=== PATIENT | female | born 1945 | race Caucasian/White ===

== ENCOUNTER 2021-08-26 17:53 | Inpatient (IN) ==
[2021-08-26] MEDS ORDERED: ONDANSETRON INJ 2 MG/ML 2 ML VIAL IV STA (18:49)
[2021-08-26] MEDS ORDERED: MoRPHine SULFATE 4 MG/ML 1 ML CARP\\VIAL IV STA (18:49)
--- NOTE | 2021-08-26 18:55 | Emergency Department Note ---
History of Present Illness General Chief complaint: Fall Time Seen by Provider: 08/26/21 18:42 Source: patient History of Present Illness Provider complaint: Left hip pain Onset (ago): hour(s) Location: hip and left Pain Consistency: + constant Maximum Pain Intensity: 9 Quality: + sharp Exacerbated By: + movement Associated symptoms: no chest pain, no cough, no fever/chills, no headaches, no nausea/vomiting, no shortness of breath or no syncope This is a 76-year-old female who presents with left hip pain after a fall that occurred earlier today. The patient states that she felt lightheaded and tripped over her own feet falling onto her left hip. She is sure that she did not hit her head or pass out. She felt lightheaded this morning but denies any recent illness, fever, cough or cold symptoms, headache, chest pain, shortness of breath, abdominal pain, vomiting, diarrhea or urinary symptoms. She states her pain is sharp and it is worse with movement. She denies pain to the knee or the ankle. She denies any pain to her ribs or her shoulder. She states that she was lying on the ground for a few hours before EMS arrived. Home Medications Medication Instructions Recorded Confirmed Type cholecalciferol (vitamin D3) 125 5,000 unit PO DAILY 09/07/18 08/26/21 History mcg (5,000 unit) tablet (Vitamin D3) magnesium oxide 400 mg PO BID 09/07/18 08/26/21 History metformin 500 mg tablet 500 mg PO BID 09/07/18 08/26/21 History alendronate 70 mg tablet 70 mg PO WK 08/26/21 08/26/21 History atenolol 25 mg tablet 12.5 mg PO DAILY 08/26/21 08/26/21 History atorvastatin 40 mg tablet 40 mg PO DAILY 08/26/21 08/26/21 History cyanocobalamin (vitamin B-12) 1,000 mcg PO DAILY 08/26/21 08/26/21 History 1,000 mcg tablet lisinopril 5 mg tablet 5 mg PO DAILY 08/26/21 08/26/21 History multivitamin 1 tab PO DAILY 08/26/21 08/26/21 History Allergies Allergy/AdvReac Type Severity Reaction Status Date / Time No Known Allergies Allergy Verified 08/26/21 21:33 Past Med/Surg History Medical History (Updated 08/26/21 @ 22:14 by Balwinder Colin MD) Anemia Blindness of right eye CKD (chronic kidney disease), stage III DM type 2 (diabetes mellitus, type 2) Dyslipidemia Hypertension Osteoporosis Paroxysmal ventricular tachycardia Syncope Surgical History H/O colonoscopy "2012- diverticulosis" H/O dilation and curettage H/O umbilical hernia repair History of cataract surgery Social History Smoking Status: Never smoker Hx Alcohol Use: No Hx Substance Use: No Preferred Language: Ecuadorean Communication Ability: Effective Assistant Media Buyer Required: No Beliefs That Will Affect Care: None marital status: / Current Living Situation: Family How many Children do You have: 1 Feels Safe at Home: Yes Assistive Devices: Walker Review of Systems See HPI for pertinent positives & negatives. and A total of 10 systems reviewed and were otherwise negative Physical Exam Vital Signs Vital Signs - 24 hr 08/26/21 18:11 08/26/21 18:20 08/26/21 18:29 Temperature 37.1 C Temperature Source Oral Pulse Rate 104 H 102 H Pulse Rate [Apical] 98 H Pulse Rate from SpO2 Sensor 104 H 104 H Pulse Rhythm Pulse Rhythm [Apical] Regular Pulse Strength Pulse Strength [Apical] Normal Respiratory Rate 23 23 18 Respiratory Effort / Characteristics Non-Labored Spontaneous Respiratory Depth Normal Respiratory Pattern Regular Blood Pressure Blood Pressure [Right Arm] 136/82 Blood Pressure Mean Blood Pressure Mean [Right Arm] 100 Blood Pressure Position Blood Pressure Position [Right Arm] Lying Pulse Oximetry 95 93 96 Oxygen Delivery Method Room Air Sepsis Recent Fever Within 48 Hours Sepsis New/Unexplained Change in Mental Status Sepsis Action Taken by Nursing 08/26/21 18:31 08/26/21 18:44 08/26/21 19:10 Temperature 37.1 C Temperature Source Oral Pulse Rate 98 H 94 H 117 H Pulse Rate [Apical] Pulse Rate from SpO2 Sensor 117 H Pulse Rhythm Regular Regular Pulse Rhythm [Apical] Pulse Strength Normal Pulse Strength [Apical] Respiratory Rate 19 20 25 H Respiratory Effort / Characteristics Non-Labored Spontaneous Respiratory Depth Normal Respiratory Pattern Regular Blood Pressure 136/82 141/69 H Blood Pressure [Right Arm] Blood Pressure Mean 100 93 Blood Pressure Mean [Right Arm] Blood Pressure Position Lying Blood Pressure Position [Right Arm] Pulse Oximetry 96 96 94 Oxygen Delivery Method Room Air Room Air Room Air Sepsis Recent Fever Within 48 Hours No Sepsis New/Unexplained Change in Mental Status No Sepsis Action Taken by Nursing No Action Required 08/26/21 19:30 08/26/21 20:30 08/26/21 21:00 Temperature Temperature Source Pulse Rate 109 H 107 H 113 H Pulse Rate [Apical] Pulse Rate from SpO2 Sensor 109 H 105 H 115 H Pulse Rhythm Pulse Rhythm [Apical] Pulse Strength Pulse Strength [Apical] Respiratory Rate 20 20 18 Respiratory Effort / Characteristics Respiratory Depth Respiratory Pattern Blood Pressure 121/62 99/66 L 133/68 Blood Pressure [Right Arm] Blood Pressure Mean 81 77 89 Blood Pressure Mean [Right Arm] Blood Pressure Position Blood Pressure Position [Right Arm] Pulse Oximetry 93 92 92 Oxygen Delivery Method Room Air Room Air Room Air Sepsis Recent Fever Within 48 Hours Sepsis New/Unexplained Change in Mental Status Sepsis Action Taken by Nursing Constitutional: Vital signs reviewed. Eyes: Pupils are equal round reactive to light. Conjunctiva are noninjected. ENT: Pharynx is clear without erythema or exudate. Mucous membranes are moist. Neck supple without meningeal signs. Respiratory: Clear to auscultation bilaterally. Breath sounds are equal bilaterally. Cardiovascular: Regular rate and rhythm. No rubs or gallops. GI: Soft, nondistended and nontender. Bowel sounds are present. Musculoskeletal: No peripheral edema. Tenderness over the left hip without deformity. Neurovascular intact with normal dorsalis pedis pulse. Integumentary: No cyanosis. or jaundice. Neurological: The patient is awake and alert. No focal deficits. Psychiatric: Normal affect. Not anxious appearing. Course Administered Medications Magnesium Sulfate/Dextrose (Magnesium Sulfate / D5w) 1 gm in 100 mls @ 50 mls/hr IV Q2H PAUL Stop: 08/27/21 00:59 Last Admin: 08/26/21 21:34 Dose: 50 mls/hr Documented by: [id number] Discontinued Medications Sodium Chloride (Nss) 500 mls @ 250 mls/hr IV .Q2H ONE Stop: 08/26/21 21:58 Last Admin: 08/26/21 20:16 Dose: 250 mls/hr Documented by: [id number] Morphine Sulfate (Morphine Sulfate 4 Mg/Ml 1 Ml Carp\\Vial) 4 mg IV NOW STA Stop: 08/26/21 18:50 Last Admin: 08/26/21 19:03 Dose: 4 mg Documented by: [id number] Ondansetron HCl (Ondansetron Inj 2 Mg/Ml 2 Ml Vial) 4 mg IV NOW STA Stop: 08/26/21 18:50 Last Admin: 08/26/21 19:02 Dose: 4 mg Documented by: [id number] Medical Decision Making Differential Diagnosis If fracture, contusion, dislocation, pelvic fracture, metabolic derangement, anemia, infection Medical Records Attestation: I reviewed the patient's medical records. I did perform a limited focused review of portions of the patient's old chart on the electronic medical record. The patient has had no recent pertinent visits to this hospital. Home Medications Current Medication List: was personally reviewed by me Laboratory Data Attestation: I reviewed the patient's lab results. Result diagrams: 08/26/21 18:26 08/26/21 18:26 Lab Results 08/26/21 08/26/21 08/26/21 Range/Units 18:26 18:26 18:26 WBC 9.20 (4.8-10.8) K/uL RBC 3.27 L (4.2-5.4) M/uL Hgb 10.2 L (12.0-16.0) g/dL Hct 30.5 L (37-47) % MCV 93.3 (80-100) fL MCH 31.2 (25-34) pg MCHC 33.4 (32-36) g/dL RDW Std Deviation 45.2 (36.4-46.3) fL RDW Coeff of Julio 13.3 (11.5-14.5) % Plt Count 187 (130-400) K/uL MPV 11.0 H (7.4-10.4) fL Immature Gran % (Auto) 0.2 % Neut % (Auto) 87.0 % Lymph % (Auto) 3.5 % [place] % (Auto) 9.2 % Eos % (Auto) 0.0 % Baso % (Auto) 0.1 % Neut # (Auto) 8.00 H (1.4-6.5) K/uL Lymph # (Auto) 0.32 L (1.2-3.4) K/uL [place] # (Auto) 0.85 H (0.11-0.59) K/uL Eos # (Auto) 0.00 (0-0.5) K/uL Baso # (Auto) 0.01 (0-0.2) K/uL Immature Gran # (Auto) 0.02 (0.00-0.02) K/uL PT 10.2 (9.0-12.0) Seconds INR 1.0 (0.9-1.1) APTT 27.1 (21.0-31.0) Seconds PTT Ratio 1.0 Sodium 131 L (136-145) mmol/L Potassium 4.6 (3.5-5.1) mmol/L Chloride 98 (98-107) mmol/L Carbon Dioxide 24 (21-32) mmol/L Anion Gap 9.0 (3-11) BUN 27 H (7-18) mg/dl Creatinine 1.15 (0.6-1.2) mg/dl Est Cr Clr Drug Dosing 28.4 ml/min Est GFR ( Amer) 52.8 ml/min Est GFR (Non-Af Amer) 45.5 ml/min BUN/Creatinine Ratio 23.5 H (10-20) Glucose 167 H (70-99) mg/dl Calcium 8.1 L (8.5-10.1) mg/dl Magnesium 1.5 L (1.8-2.4) mg/dl Total Bilirubin 0.5 (0.2-1) mg/dl AST 55 H (15-37) U/L ALT 41 (12-78) U/L Alkaline Phosphatase 61 (45-117) U/L Total Creatine Kinase 342 H (26-192) U/L Troponin I < 0.015 (0-0.045) ng/ml Total Protein 7.1 (6.4-8.2) gm/dl Albumin 2.8 L (3.4-5.0) gm/dl Globulin 4.3 H (2.5-4.0) gm/dl Albumin/Globulin Ratio 0.7 L (0.9-2) Procalcitonin (0-0.5) ng/ml TSH 6.170 H (0.300-4.500) uIu/ml Free T4 1.52 (0.8-1.6) ng/dl Urine Color Urine Appearance (Clear) Urine pH (4.5-7.5) Ur Specific [place] (1.000-1.030) Urine Protein (Negative) Urine Glucose (UA) (Negative) Urine Ketones (Negative) Urine Blood (Negative) Urine Nitrite (Negative) Urine Bilirubin (Negative) Urine Urobilinogen (Negative) Ur Leukocyte Esterase (Negative) Urine WBC (Auto) (0-5) /hpf Urine RBC (Auto) (0-4) /hpf U Hyaline Cast (Auto) (0-5) /lpf U Epithel Cells (Auto) (0-5) /lpf Urine Bacteria (Auto) (Negative) COVID-19 Eval Order SARS-CoV-2 (PCR) (Negative) Blood Type Antibody Screen 08/26/21 08/26/21 08/26/21 Range/Units 19:07 19:07 19:07 WBC (4.8-10.8) K/uL RBC (4.2-5.4) M/uL Hgb (12.0-16.0) g/dL Hct (37-47) % MCV (80-100) fL MCH (25-34) pg MCHC (32-36) g/dL RDW Std Deviation (36.4-46.3) fL RDW Coeff of Julio (11.5-14.5) % Plt Count (130-400) K/uL MPV (7.4-10.4) fL Immature Gran % (Auto) % Neut % (Auto) % Lymph % (Auto) % [place] % (Auto) % Eos % (Auto) % Baso % (Auto) % Neut # (Auto) (1.4-6.5) K/uL Lymph # (Auto) (1.2-3.4) K/uL [place] # (Auto) (0.11-0.59) K/uL Eos # (Auto) (0-0.5) K/uL Baso # (Auto) (0-0.2) K/uL Immature Gran # (Auto) (0.00-0.02) K/uL PT (9.0-12.0) Seconds INR (0.9-1.1) APTT (21.0-31.0) Seconds PTT Ratio Sodium (136-145) mmol/L Potassium (3.5-5.1) mmol/L Chloride (98-107) mmol/L Carbon Dioxide (21-32) mmol/L Anion Gap (3-11) BUN (7-18) mg/dl Creatinine (0.6-1.2) mg/dl Est Cr Clr Drug Dosing ml/min Est GFR ( Amer) ml/min Est GFR (Non-Af Amer) ml/min BUN/Creatinine Ratio (10-20) Glucose (70-99) mg/dl Calcium (8.5-10.1) mg/dl Magnesium (1.8-2.4) mg/dl Total Bilirubin (0.2-1) mg/dl AST (15-37) U/L ALT (12-78) U/L Alkaline Phosphatase (45-117) U/L Total Creatine Kinase (26-192) U/L Troponin I (0-0.045) ng/ml Total Protein (6.4-8.2) gm/dl Albumin (3.4-5.0) gm/dl Globulin (2.5-4.0) gm/dl Albumin/Globulin Ratio (0.9-2) Procalcitonin (0-0.5) ng/ml TSH (0.300-4.500) uIu/ml Free T4 (0.8-1.6) ng/dl Urine Color Urine Appearance (Clear) Urine pH (4.5-7.5) Ur Specific [place] (1.000-1.030) Urine Protein (Negative) Urine Glucose (UA) (Negative) Urine Ketones (Negative) Urine Blood (Negative) Urine Nitrite (Negative) Urine Bilirubin (Negative) Urine Urobilinogen (Negative) Ur Leukocyte Esterase (Negative) Urine WBC (Auto) (0-5) /hpf Urine RBC (Auto) (0-4) /hpf U Hyaline Cast (Auto) (0-5) /lpf U Epithel Cells (Auto) (0-5) /lpf Urine Bacteria (Auto) (Negative) COVID-19 Eval Order Covid19 at [facility] SARS-CoV-2 (PCR) POSITIVE A* (Negative) Blood Type O Positive Antibody Screen NEGATIVE 08/26/21 08/26/21 Range/Units 19:15 19:18 WBC (4.8-10.8) K/uL RBC (4.2-5.4) M/uL Hgb (12.0-16.0) g/dL Hct (37-47) % MCV (80-100) fL MCH (25-34) pg MCHC (32-36) g/dL RDW Std Deviation (36.4-46.3) fL RDW Coeff of Julio (11.5-14.5) % Plt Count (130-400) K/uL MPV (7.4-10.4) fL Immature Gran % (Auto) % Neut % (Auto) % Lymph % (Auto) % [place] % (Auto) % Eos % (Auto) % Baso % (Auto) % Neut # (Auto) (1.4-6.5) K/uL Lymph # (Auto) (1.2-3.4) K/uL [place] # (Auto) (0.11-0.59) K/uL Eos # (Auto) (0-0.5) K/uL Baso # (Auto) (0-0.2) K/uL Immature Gran # (Auto) (0.00-0.02) K/uL PT (9.0-12.0) Seconds INR (0.9-1.1) APTT (21.0-31.0) Seconds PTT Ratio Sodium (136-145) mmol/L Potassium (3.5-5.1) mmol/L Chloride (98-107) mmol/L Carbon Dioxide (21-32) mmol/L Anion Gap (3-11) BUN (7-18) mg/dl Creatinine (0.6-1.2) mg/dl Est Cr Clr Drug Dosing ml/min Est GFR ( Amer) ml/min Est GFR (Non-Af Amer) ml/min BUN/Creatinine Ratio (10-20) Glucose (70-99) mg/dl Calcium (8.5-10.1) mg/dl Magnesium (1.8-2.4) mg/dl Total Bilirubin (0.2-1) mg/dl AST (15-37) U/L ALT (12-78) U/L Alkaline Phosphatase (45-117) U/L Total Creatine Kinase (26-192) U/L Troponin I (0-0.045) ng/ml Total Protein (6.4-8.2) gm/dl Albumin (3.4-5.0) gm/dl Globulin (2.5-4.0) gm/dl Albumin/Globulin Ratio (0.9-2) Procalcitonin 0.31 (0-0.5) ng/ml TSH (0.300-4.500) uIu/ml Free T4 (0.8-1.6) ng/dl Urine Color Yellow Urine Appearance Clear (Clear) Urine pH 5.0 (4.5-7.5) Ur Specific [place] 1.015 (1.000-1.030) Urine Protein 1+ H (Negative) Urine Glucose (UA) Negative (Negative) Urine Ketones Trace H (Negative) Urine Blood Trace H (Negative) Urine Nitrite Negative (Negative) Urine Bilirubin Negative (Negative) Urine Urobilinogen Negative (Negative) Ur Leukocyte Esterase 1+ H (Negative) Urine WBC (Auto) >30 H (0-5) /hpf Urine RBC (Auto) 0-4 (0-4) /hpf U Hyaline Cast (Auto) 1-5 (0-5) /lpf U Epithel Cells (Auto) 0-5 (0-5) /lpf Urine Bacteria (Auto) 4+ H (Negative) COVID-19 Eval Order SARS-CoV-2 (PCR) (Negative) Blood Type Antibody Screen Imaging Data Radiologist's Impression: Chest X-Ray 08/26/21 18:49 XR chest 1V portable HISTORY: Hip fracture. Fall. COMPARISON: Chest 09/07/2019. FINDINGS: There are old, healed right-sided rib fractures. No acute fractures identified within the chest. Advanced degenerative changes within the bilateral shoulders. No focal lung consolidations to suggest pneumonia. No evidence for pulmonary edema. The heart is normal in size. No pleural effusions. No pneumothorax. IMPRESSION: No acute process. ACT 112: Negative or not required by law. Electronically signed by: Jeremias Beltran M.D. 08/26/2021 7:11 PM Hip X-Ray 08/26/21 18:49 XR hip LT min 2V CLINICAL HISTORY: fall eval for fx. Fall. Left hip pain. COMPARISON STUDY: None. FINDINGS: There is a comminuted and angulated intertrochanteric fracture of the proximal left femur. No dislocation. The visualized pelvic bones are intact. IMPRESSION: Left femoral intertrochanteric fracture. No dislocation. ACT 112: Negative or not required by law. Electronically signed by: Jeremias Beltran M.D. 08/26/2021 7:05 PM ECG Data Attestation: I personally reviewed and interpreted this ECG as follows: Indication: + other (Lightheadedness) Rate (beats per minute): 101 Rhythm: + sinus tachycardia ECG [place]: + Normal ECG ST segments: + Nonspecific ST abnormalities ECG Findings: + Other (Limited interpretation due to motion artifact); no PVCs MDM Narrative I did evaluate the patient as noted above. Patient is presenting with lightheadedness and a fall. The patient has hip pain. IV access was established. I did treat her with IV morphine and Zofran. I did place an order for continuous cardiac monitoring. The monitor showed normal sinus rhythm at a rate of 98 bpm. I did order and personally review the patient's 12-lead EKG as described above. She has no acute ischemic changes. I did order and personally reviewed the images of the patient's chest, pelvis and left hip x-rays as described above. She does have an intertrochanteric fracture. Chest x-ray is unremarkable. I did order a urine analysis. I did order and review the patient's blood work as noted in the electronic medical record. CBC demonstrates a chronic anemia with a hemoglobin of 10.2. Electrolytes are unremarkable other than a sodium of 131, magnesium of 1.5 and calcium of 8.1. Troponin is negative. UA shows some signs of infection. I did discuss the test results with the patient and her son. Her pain is well controlled. She will be hospitalized for further care and evaluation. I did discuss the case with Dr. Coffey as the patient states that she has seen [facility] in the past. I did discuss the case with the hospitalist and case planner. Screening Covid test came back positive despite lack of symptoms other than fatigue Impression & Plan Closed fracture of left hip, Fall, COVID-19, Chronic anemia, Hyponatremia, Hypomagnesemia, Hypocalcemia, Acute UTI Discharge Plan Visit Data Chief Complaint: Fall ED Provider: Balwinder Colin Discharge Problem: Closed fracture of left hip, Fall, COVID-19, Chronic anemia, Hyponatremia, H ypomagnesemia, Hypocalcemia, Acute UTI Patient Disposition: Being Evaluated by Hospitalist Discharge Instructions Interventions: ED Discharge Assessment Last Done: 08/26/21 22:47 Discharge Problem: Closed fracture of left hip Qualifiers: Encounter type: initial encounter Qualified Code(s): S72.002A - Fracture of unspecified part of neck of left femur, initial encounter for closed fracture Fall Qualifiers: Encounter type: initial encounter Qualified Code(s): W19.XXXA - Unspecified fall, initial encounter
[2021-08-26 18:57] LABS: Hematocrit (blood only) 30.5 % (37-47); Hemoglobin 10.2 g/dL (12.0-16.0); Mean Corpuscular Hemoglobin 31.2 pg (25-34); Mean Corpuscular Hgb Conc 33.4 g/dL (32-36); Mean Corpuscular Volume 93.3 fL (80-100); Platelet Count 187 K/uL (130-400); RDW Coefficient of Variation 13.3 % (11.5-14.5); RDW Standard Deviation 45.2 fL (36.4-46.3); Red Blood Count 3.27 M/uL (4.2-5.4)
--- NOTE | 2021-08-26 19:06 | XRay Report ---
XR hip LT min 2V CLINICAL HISTORY: fall eval for fx. Fall. Left hip pain. COMPARISON STUDY: None. FINDINGS: There is a comminuted and angulated intertrochanteric fracture of the proximal left femur. No dislocation. The visualized pelvic bones are intact. IMPRESSION: Left femoral intertrochanteric fracture. No dislocation. ACT 112: Negative or not required by law. Electronically signed by: Jeremias Beltran M.D. 08/26/2021 7:05 PM
[2021-08-26 19:07] LABS: Partial Thromboplastin Time 27.1 Seconds (21.0-31.0); Prothrombin Time 10.2 Seconds (9.0-12.0)
--- NOTE | 2021-08-26 19:12 | XRay Report ---
XR chest 1V portable HISTORY: Hip fracture. Fall. COMPARISON: Chest 09/07/2019. FINDINGS: There are old, healed right-sided rib fractures. No acute fractures identified within the c hest. Advanced degenerative changes within the bilateral shoulders. No focal lung consolidations to s uggest pneumonia. No evidence for pulmonary edema. The heart is normal in size. No pleural effusions. No pneumothorax. IMPRESSION: No acute process. ACT 112: Negative or not required by law. Electronically signed by: Jeremias Beltran M.D. 08/26/2021 7:11 PM
[2021-08-26 19:16] LABS: Alanine Aminotransferase 41 U/L (12-78); Albumin Level 2.8 gm/dl (3.4-5.0); Aspartate Aminotransferase 55 U/L (15-37); BUN Creatinine Ratio 23.5 (10-20); Blood Urea Nitrogen 27 mg/dl (7-18); Calcium 8.1 mg/dl (8.5-10.1); Carbon Dioxide 24 mmol/L (21-32); Chloride 98 mmol/L (98-107); Creatinine Clr Calc Pharmacy 28.4 ml/min; Est GFR (African American) 52.8 ml/min; Est GFR (Non-African American) 45.5 ml/min; Glucose 167 mg/dl (70-99); Potassium 4.6 mmol/L (3.5-5.1); Sodium 131 mmol/L (136-145)
[2021-08-26 19:18] LABS: Basophils # (auto) 0.01 K/uL (0-0.2); Basophils % (auto) 0.1 %; Immature Granulocytes # (auto) 0.02 K/uL (0.00-0.02); Immature Granulocytes % (auto) 0.2 %; Lymphocytes # (auto) 0.32 K/uL (1.2-3.4); Lymphocytes % (auto) 3.5 %; Monocytes # (auto) 0.85 K/uL (0.11-0.59); Monocytes % (auto) 9.2 %
[2021-08-26 19:21] LABS: Albumin Globulin Ratio 0.7 (0.9-2); Alkaline Phosphatase 61 U/L (45-117); Bilirubin,Total 0.5 mg/dl (0.2-1); Creatine Kinase 342 U/L (26-192); Globulin 4.3 gm/dl (2.5-4.0); Total Protein 7.1 gm/dl (6.4-8.2); Troponin I < 0.015 ng/ml (0-0.045)
[2021-08-26 19:28] LABS: Appearance Urine Clear (Clear); Bacteria Urine Automated 4+ (Negative); Bilirubin Urine Negative (Negative); Blood Urine Trace (Negative); Color Urine Yellow; Epithelial Cell Urine Auto 0-5 /lpf (0-5); Glucose Urine UA Negative (Negative); Ketones Urine Trace (Negative); Leukocyte Esterase Urine 1+ (Negative); Nitrite Urine Negative (Negative); Protein Urine 1+ (Negative); RBC Urine Automated 0-4 /hpf (0-4); Specific Gravity Urine 1.015 (1.000-1.030); Urobilinogen Urine Negative (Negative); WBC Urine Automated >30 /hpf (0-5)
[2021-08-26] MEDS ORDERED: SODIUM CHLORIDE 0.9% 500 ML IV ONE (19:59)
[2021-08-26 20:18] LABS: Magnesium 1.5 mg/dl (1.8-2.4)
[2021-08-26 20:30] LABS: T4 Free Thyroxine 1.52 ng/dl (0.8-1.6)
--- NOTE | 2021-08-26 21:26 | History & Physical Report ---
Date of Service August 26, 2021 Assessment & Plan (1) Closed fracture of left hip: Plan: Secondary to mechanical fall COVID-19 illness without respiratory symptoms currently Hyponatremia, mild clinical dehydration secondary to above Tachycardia secondary to mild clinical dehydration HTN, BP on the lower side hx paroxysmal VT as per records DM2 on oral meds, well controlled as of recent HgA1c of 5.27 March 2021 chronic anemia, hemoglobin at baseline Asymptomatic pyuria, no sepsis for now Medical telemetry given tachycardia IVF Hold lisinopril for now given borderline BP Orthopedics consult Re: Left hip fracture (ER provider already in touch with Dr. Coffey.) Revised Cardiac Risk Index (RCRI): 1. High-risk type of surgery (examples include vascular and any open intraperitoneal or intrathoracic procedures). No 2. History of ischemic heart disease (history of myocardial infarction or positive exercise test, current compliant of chest pain considered to be secondary to myocardial ischemia, use of nitrate therapy, or ECG with pathological Q waves; do not count prior coronary revascularization procedure unless one of the other criteria for ischemic heart disease is present). No 3. History of heart failure. No 4. History of cerebrovascular disease. No 5. Diabetes mellitus requiring treatment with insulin. No 6. Preoperative serum creatinine >2.0. No Pt has revised cardiac index score of 0 points. (Class I Risk.) 3.9% 30-day risk of , MA, or cardiac arrest Acceptable risk for cardiac complications if surgery recommended by Orthopedics and patient/family agreeable to attendant procedural benefits and risks. ISS BG goal 110-140 DVT prophylaxis SCDs. RE possible procedure Recommend pharmacologic anticoagulation once bleeding risk is deemed to be minimal and negligible pending Orthopedics evaluation. DNR. Patient son requesting for updates from provider, Mr. Art Escobedo, . Text document was generated using I-lighting voice recognition software. It may contain grammatical or spelling errors. Kindly contact undersigned for clarification of any documentation item in question. History of Present Illness Chief Complaint: Left hip pain, fall Primary Care Provider: Kit Vincent MD History obtained from patient, family, and records. Medical history significant for HTN, Paroxysmal VT, hyperlipidemia, DM2 on oral meds, chronic anemia (baseline hemoglobin of 10). Last confinement 2017 for ambulatory dysfunction secondary to left knee pain. Patient not feeling well the last few days. Fair appetite. No chest pain, no S OB, no cough symptoms. Son with COVID-19 illness. Patient has not received COVID-19 vaccination. Patient remembers feeling lightheaded before tripping on her own feet today causing her to fall down on her left hip. Sharp left hip pain. Patient denies syncope, chest pain, S OB. Unable to get up from the floor. 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 Allergies Allergy/AdvReac Type Severity Reaction Status Date / Time No Known Allergies Allergy Verified 08/26/21 21:33 Home Medications Medication Instructions Recorded Confirmed Type cholecalciferol (vitamin D3) 125 5,000 unit PO DAILY 09/07/18 08/26/21 History mcg (5,000 unit) tablet (Vitamin D3) magnesium oxide 400 mg PO BID 09/07/18 08/26/21 History metformin 500 mg tablet 500 mg PO BID 09/07/18 08/26/21 History alendronate 70 mg tablet 70 mg PO WK 08/26/21 08/26/21 History atenolol 25 mg tablet 12.5 mg PO DAILY 08/26/21 08/26/21 History atorvastatin 40 mg tablet 40 mg PO DAILY 08/26/21 08/26/21 History cyanocobalamin (vitamin B-12) 1,000 mcg PO DAILY 08/26/21 08/26/21 History 1,000 mcg tablet lisinopril 5 mg tablet 5 mg PO DAILY 08/26/21 08/26/21 History multivitamin 1 tab PO DAILY 08/26/21 08/26/21 History Past Med/Surg History Medical History (Updated 08/27/21 @ 12:19 by Wilfredo Durham MD) Anemia Blindness of right eye CKD (chronic kidney disease), stage III COVID-19 DM type 2 (diabetes mellitus, type 2) Dyslipidemia Hypertension Osteoporosis Paroxysmal ventricular tachycardia Syncope Surgical History H/O colonoscopy "2012- diverticulosis" H/O dilation and curettage H/O umbilical hernia repair History of cataract surgery Social History Smoking Status: Never smoker Hx Alcohol Use: No Hx Substance Use: No Preferred Language: Peruvian Communication Ability: Effective [employer] T[employer] Required: No Beliefs That Will Affect Care: None marital status: / Current Living Situation: Family Current Living Situation Comment: lives with son Art How many Children do You have: 1 Other Information That Helps Us Care for You: No Feels Safe at Home: Yes Safety Concerns: Feels Safe At This Time Assistive Devices: Walker Review of Systems Review of Systems: As per HPI, all 10 systems reviewed, all other ROS negative Physical Exam Physical Exam: GENERAL: Slightly uncomfortable, no respiratory distress SKIN: Pallor, warm HEENT: Pale palpebral conjunctivae, no ptosis, dry buccal mucosa NECK : Supple, no tenderness CHEST : CTA, no tenderness HEART : Tachycardic, no obvious murmurs ABDOMEN: no distention, nontender EXTREMITIES : No LE swelling, left hip tenderness, no other conspicuous deformities noted NEUROLOGIC : Coherent, no facial asymmetry, no other gross focality Results & Data Results & Data ([facility]) Vital Signs (Past 12 Hours) Vital Signs Temp Pulse Pulse Resp BP BP Pulse Ox 08/26/21 20:30 107 H 20 99/66 L 92 08/26/21 19:30 109 H 20 121/62 93 08/26/21 19:10 117 H 25 H 141/69 H 94 08/26/21 18:44 94 H 20 96 08/26/21 18:31 37.1 C 98 H 19 136/82 96 08/26/21 18:29 37.1 C 98 H 18 136/82 96 08/26/21 18:20 102 H 23 93 08/26/21 18:11 104 H 23 95 Laboratory Results Laboratory Results WBC 9.20 K/uL (4.8-10.8) 08/26/21 18:26 RBC 3.27 M/uL (4.2-5.4) L 08/26/21 18:26 Hgb 10.2 g/dL (12.0-16.0) L 08/26/21 18:26 Hct 30.5 % (37-47) L 08/26/21 18:26 MCV 93.3 fL (80-100) 08/26/21 18:26 MCH 31.2 pg (25-34) 08/26/21 18:26 MCHC 33.4 g/dL (32-36) 08/26/21 18: RDW Std Deviation 45.2 fL (36.4-46.3) 08/26/21 18: RDW Coeff of Julio 13.3 % (11.5-14.5) 08/26/21 18: Plt Count 187 K/uL (130-400) 08/26/21 18: MPV 11.0 fL (7.4-10.4) H 08/26/21 18: Immature Gran % (Auto) 0.2 % 08/26/21 18: Neut % (Auto) 87.0 % 08/26/21 18: Lymph % (Auto) 3.5 % 08/26/21 18: Whitman % (Auto) 9.2 % 08/26/21 18: Eos % (Auto) 0.0 % 08/26/21 18: Baso % (Auto) 0.1 % 08/26/21 18: Neut # (Auto) 8.00 K/uL (1.4-6.5) H 08/26/21 18: Lymph # (Auto) 0.32 K/uL (1.2-3.4) L 08/26/21 18: Whitman # (Auto) 0.85 K/uL (0.11-0.59) H 08/26/21 18: Eos # (Auto) 0.00 K/uL (0-0.5) 08/26/21 18: Baso # (Auto) 0.01 K/uL (0-0.2) 08/26/21 18: Immature Gran # (Auto) 0.02 K/uL (0.00-0.02) 08/26/21 18: PT 10.2 Seconds (9.0-12.0) 08/26/21 18: INR 1.0 (0.9-1.1) 08/26/21 18: APTT 27.1 Seconds (21.0-31.0) 08/26/21 18: PTT Ratio 1.0 08/26/21 18: Sodium 131 mmol/L (136-145) L 08/26/21 18: Potassium 4.6 mmol/L (3.5-5.1) 08/26/21 18:26 Chloride 98 mmol/L (98-107) 08/26/21 18:26 Carbon Dioxide 24 mmol/L (21-32) 08/26/21 18:26 Anion Gap 9.0 (3-11) 08/26/21 18:26 BUN 27 mg/dl (7-18) H 08/26/21 18:26 Creatinine 1.15 mg/dl (0.6-1.2) 08/26/21 18:26 Est Cr Clr Drug Dosing 28.4 ml/min 08/26/21 18:26 Est GFR ( Amer) 52.8 ml/min 08/26/21 18:26 Est GFR (Non-Af Amer) 45.5 ml/min 08/26/21 18:26 BUN/Creatinine Ratio 23.5 (10-20) H 08/26/21 18:26 Glucose 167 mg/dl (70-99) H 08/26/21 18:26 Calcium 8.1 mg/dl (8.5-10.1) L 08/26/21 18:26 Magnesium 1.5 mg/dl (1.8-2.4) L 08/26/21 18:26 Total Bilirubin 0.5 mg/dl (0.2-1) 08/26/21 18:26 AST 55 U/L (15-37) H 08/26/21 18:26 ALT 41 U/L (12-78) 08/26/21 18:26 Alkaline Phosphatase 61 U/L (45-117) 08/26/21 18:26 Total Creatine Kinase 342 U/L (26-192) H 08/26/21 18:26 Troponin I < 0.015 ng/ml (0-0.045) 08/26/21 18:26 Total Protein 7.1 gm/dl (6.4-8.2) 08/26/21 18:26 Albumin 2.8 gm/dl (3.4-5.0) L 08/26/21 18:26 Globulin 4.3 gm/dl (2.5-4.0) H 08/26/21 18:26 Albumin/Globulin Ratio 0.7 (0.9-2) L 08/26/21 18:26 TSH 6.170 uIu/ml (0.300-4.500) H 08/26/21 18:26 Free T4 1.52 ng/dl (0.8-1.6) 08/26/21 18:26 Urine Color Yellow 08/26/21 19:15 Urine Appearance Clear (Clear) 08/26/21 19:15 Urine pH 5.0 (4.5-7.5) 08/26/21 19:15 Ur Specific [place] 1.015 (1.000-1.030) 08/26/21 19:15 Urine Protein 1+ (Negative) H 08/26/21 19:15 Urine Glucose (UA) Negative (Negative) 08/26/21 19:15 Urine Ketones Trace (Negative) H 08/26/21 19:15 Urine Blood Trace (Negative) H 08/26/21 19:15 Urine Nitrite Negative (Negative) 08/26/21 19:15 Urine Bilirubin Negative (Negative) 08/26/21 19:15 Urine Urobilinogen Negative (Negative) 08/26/21 19:15 Ur Leukocyte Esterase 1+ (Negative) H 08/26/21 19:15 Urine WBC (Auto) >30 /hpf (0-5) H 08/26/21 19:15 Urine RBC (Auto) 0-4 /hpf (0-4) 08/26/21 19:15 U Hyaline Cast (Auto) 1-5 /lpf (0-5) 08/26/21 19:15 U Epithel Cells (Auto) 0-5 /lpf (0-5) 08/26/21 19:15 Urine Bacteria (Auto) 4+ (Negative) H 08/26/21 19:15 COVID-19 Eval Order Covid19 at [facility] 08/26/21 19:07 SARS-CoV-2 (PCR) POSITIVE (Negative) A* 08/26/21 19:07 Blood Type O Positive 08/26/21 19:07 Antibody Screen NEGATIVE 08/26/21 19:07 Impressions Chest X-Ray 08/26/21 18:49 XR chest 1V portable HISTORY: Hip fracture. Fall. COMPARISON: Chest 09/07/2019. FINDINGS: There are old, healed right-sided rib fractures. No acute fractures identified within the chest. Advanced degenerative changes within the bilateral shoulders. No focal lung consolidations to suggest pneumonia. No evidence for pulmonary edema. The heart is normal in size. No pleural effusions. No pneumothorax. IMPRESSION: No acute process. ACT 112: Negative or not required by law. Electronically signed by: Jeremias Beltran M.D. 08/26/2021 7:11 PM Hip X-Ray 08/26/21 18:49 XR hip LT min 2V CLINICAL HISTORY: fall eval for fx. Fall. Left hip pain. COMPARISON STUDY: None. FINDINGS: There is a comminuted and angulated intertrochanteric fracture of the proximal left femur. No dislocation. The visualized pelvic bones are intact. IMPRESSION: Left femoral intertrochanteric fracture. No dislocation. ACT 112: Negative or not required by law. Electronically signed by: Jeremias Beltran M.D. 08/26/2021 7:05 PM Diagnostic Findings EKG as per my interpretation:Rate 105, sinus tachycardia, normal axis, RBBB, nonspecific ST-T wave abnormalities (1) Closed fracture of left hip Encounter type: initial encounter Qualified Code(s): S72.002A - Fracture of unspecified part of neck of left femur, initial encounter for closed fracture
[2021-08-26] MEDS: MAGNESIUM SULFATE / D5W 1 GM/100 ML BAG IV SCH ×2 (21:34→23:39)
[2021-08-26] MEDS ORDERED: GLUCOSE 10 TABS/TUBE PO PRN (23:13)
[2021-08-26] MEDS ORDERED: GLUCOSE 40% GEL 15 GM TUBE PO PRN (23:13)
[2021-08-26] MEDS ORDERED: DEXTROSE 50% 50 ML SYRINGE IV PRN (23:13)
[2021-08-26] MEDS ORDERED: bisacodyL 10 MG SUPP PR PRN (23:13)
[2021-08-26] MEDS ORDERED: PROMETHAZINE HCL 6.25 MG in SODIUM CHLORIDE 0.9% 50 ML IV PRN (23:13)
[2021-08-26] MEDS ORDERED: NALOXONE HCL 0.4 MG/1 ML VIAL/CARP IV PRN (23:13)
[2021-08-26] MEDS ORDERED: ACETAMINOPHEN 325 MG TAB PO PRN (23:13)
[2021-08-26] MEDS ORDERED: CARBOHYDRATES FOR HYPOGLYCEMIA PO PRN (23:13)
[2021-08-26] MEDS ORDERED: GLUCAGON FOR INJ 1 MG VIAL SQ PRN (23:13)
[2021-08-26] MEDS: MoRPHine SULFATE 2 MG/ML CARP IV PRN (23:38)
[2021-08-26] MEDS: SODIUM CHLORIDE 0.9% 1000ML 1,000 ML IV SCH (23:39)
[2021-08-27] MEDS: INSULIN ASPART 100 UNITS/ML 3 ML PEN SC SCH ×5 (00:24→22:28)
[2021-08-27 07:27] LABS: Hematocrit (blood only) 21.7 % (37-47); Hemoglobin 7.4 g/dL (12.0-16.0); Immature Granulocytes # (auto) 0.01 K/uL (0.00-0.02); Immature Granulocytes % (auto) 0.2 %; Lymphocytes # (auto) 0.53 K/uL (1.2-3.4); Lymphocytes % (auto) 9.4 %; Mean Corpuscular Hemoglobin 31.2 pg (25-34); Mean Corpuscular Hgb Conc 34.1 g/dL (32-36); Mean Corpuscular Volume 91.6 fL (80-100); Mean Platelet Volume 10.4 fL (7.4-10.4); Monocytes # (auto) 0.99 K/uL (0.11-0.59); Monocytes % (auto) 17.6 %; Neutrophils # (auto) 4.11 K/uL (1.4-6.5); Neutrophils % (auto) 72.8 %; Platelet Count 143 K/uL (130-400); RDW Coefficient of Variation 13.5 % (11.5-14.5); RDW Standard Deviation 45.1 fL (36.4-46.3); Red Blood Count 2.37 M/uL (4.2-5.4); White Blood Count 5.64 K/uL (4.8-10.8)
[2021-08-27 07:55] LABS: Ovalocytes 1+
[2021-08-27] MEDS ORDERED: PNEUMOCOCCAL POLYSACCHARIDES 25 MCG/0.5 ML VIAL/SYR IM ONE (08:00)
[2021-08-27] MEDS ORDERED: INFLUENZA VACCINE HIGH DOSE PF 65+ 0.7 ML SYR IM ONE (08:00)
[2021-08-27 08:03] LABS: BUN Creatinine Ratio 30.2 (10-20); Calcium 7.5 mg/dl (8.5-10.1); Creatinine Clr Calc Pharmacy 26.9 ml/min; Est GFR (African American) 58.9 ml/min; Est GFR (Non-African American) 50.8 ml/min; Magnesium 2.8 mg/dl (1.8-2.4); Potassium 4.2 mmol/L (3.5-5.1)
[2021-08-27] MEDS: MoRPHine SULFATE 2 MG/ML CARP IV PRN ×2 (08:37→12:04)
[2021-08-27] MEDS: ATENOLOL 25 MG TABLET PO SCH (08:40)
[2021-08-27] MEDS: CHOLECALCIFEROL 1,000 UNITS 25 MCG TAB PO SCH (08:41)
[2021-08-27] MEDS: MULTIVITAMIN TAB PO SCH (08:41)
--- NOTE | 2021-08-27 10:45 | Electrocardiogram Report ---
Test Reason : Blood Pressure : / mmHG Vent. Rate : 101 BPM Atrial Rate : 101 BPM P-R Int : 112 ms QRS Dur : 098 ms QT Int : 360 ms P-R-T Axes : 031 062 017 degrees QTc Int : 466 ms Poor data quality, interpretation may be adversely affected Sinus tachycardia Incomplete right bundle branch block Nonspecific ST and T wave abnormality Abnormal ECG When compared with ECG of 17-SEP-2016 17:38, Vent. rate has increased BY 37 BPM T wave inversion now evident in Lateral leads Confirmed by Kevan Cardenas ([id number]) on 08/27/2021 10:45:24 AM Referred By: REFERRED SELF Confirmed By:Osmin Cardenas
[2021-08-27] MEDS: oxyCODONE HCL IR 5 MG TAB (IMMEDIATE RELEASE) PO PRN (11:11)
--- NOTE | 2021-08-27 12:19 | Anesthesiology Consultation ---
Date of Service August 27, 2021 Assessment & Plan (1) Encounter for pre-operative examination: Chart Review Chart Review: Pending: Refer to Additional Notes / Consult section (will check on plans for transfusion) History Surgery Operation Date: 08/27/21 10:10 Proposed Procedures p Trochanteric Nail Left - Frandy Coffey DO Height/Weight Height: 4 ft 9 in Weight: 45 kg Allergies Allergy/AdvReac Type Severity Reaction Status Date / Time No Known Allergies Allergy Verified 08/26/21 21:33 Medications Home Medications Medication Instructions Recorded Confirmed Last Taken cholecalciferol (vitamin D3) 125 5,000 unit PO DAILY 09/07/18 08/26/21 09/07/18 mcg (5,000 unit) tablet (Vitamin D3) magnesium oxide 400 mg PO BID 09/07/18 08/26/21 09/07/18 AM DOSE metformin 500 mg tablet 500 mg PO BID 09/07/18 08/26/21 09/07/18 AM DOSE alendronate 70 mg tablet 70 mg PO WK 08/26/21 08/26/21 Unknown atenolol 25 mg tablet 12.5 mg PO DAILY 08/26/21 08/26/21 Unknown atorvastatin 40 mg tablet 40 mg PO DAILY 08/26/21 08/26/21 Unknown cyanocobalamin (vitamin B-12) 1,000 mcg PO DAILY 08/26/21 08/26/21 Unknown 1,000 mcg tablet lisinopril 5 mg tablet 5 mg PO DAILY 08/26/21 08/26/21 Unknown multivitamin 1 tab PO DAILY 08/26/21 08/26/21 Unknown Active Medications Generic Name Dose Route Start Last Admin Trade Name Barbie PRN Reason Stop Dose Admin Atenolol 12.5 mg 08/27/21 09:00 08/27/21 08:40 Atenolol 25 Mg Tablet PO 09/26/21 08:59 12.5 mg DAILY PAUL Administration Sodium Chloride 1,000 mls @ 50 mls/hr 08/27/21 00:01 08/26/21 23:39 Nss 1000ml IV 09/26/21 00:00 50 mls/hr .Q20H PAUL Administration Insulin Aspart 0 units 08/26/21 23:30 08/27/21 10:19 Insulin Aspart 100 Units/Ml 3 Ml Pen SC 09/25/21 23:29 Not Given ACHS PAUL Morphine Sulfate 2 mg 08/26/21 23:13 08/27/21 12:04 Morphine Sulfate 2 Mg/Ml Carp IV 09/09/21 23:12 2 mg Q3H PRN Administration Pain (1,2,3,4,5) & Pre PT Multivitamins 1 tab 08/27/21 09:00 08/27/21 08:41 Multivitamin Tab PO 09/26/21 08:59 1 tab DAILY PAUL Administration Oxycodone HCl 5 mg 08/26/21 23:13 08/27/21 11:11 Oxycodone Hcl Ir 5 Mg Tab (Immediate Release) PO 09/09/21 23:12 5 mg Q4H PRN Administration MODERATE Pain (4,5,6) & Pre PT Vitamin D 5,000 units 08/27/21 09:00 08/27/21 08:41 Cholecalciferol 1,000 Units 25 Mcg Tab PO 09/26/21 08:59 5,000 units DAILY PAUL Administration Past Medical History Medical History (Updated 08/27/21 @ 12:19 by Wilfredo Durham MD) Anemia Blindness of right eye CKD (chronic kidney disease), stage III COVID-19 DM type 2 (diabetes mellitus, type 2) Dyslipidemia Hypertension Osteoporosis Paroxysmal ventricular tachycardia Syncope Past Surgical History Surgical History H/O colonoscopy "2012- diverticulosis" H/O dilation and curettage H/O umbilical hernia repair History of cataract surgery Social History Smoking Status: Never smoker Hx Alcohol Use: No Hx Substance Use: No Physical Exam Vital Signs Last Vital Signs Temp 36.4 C L 08/27/21 12:00 Pulse 80 08/27/21 12:00 Resp 19 08/27/21 12:00 BP 109/58 L 08/27/21 12:00 Pulse Ox 91 08/27/21 12:00 Testing Laboratory Results 08/27/21 06:36 08/27/21 06:36 PT 10.2 Seconds (9.0-12.0) 08/26/21 18:26 INR 1.0 (0.9-1.1) 08/26/21 18:26 APTT 27.1 Seconds (21.0-31.0) 08/26/21 18:26 Urine Color Yellow 08/26/21 19:15 Urine Appearance Clear (Clear) 08/26/21 19:15 Urine pH 5.0 (4.5-7.5) 08/26/21 19:15 Ur Specific [place] 1.015 (1.000-1.030) 08/26/21 19:15 Urine Protein 1+ (Negative) H 08/26/21 19:15 Urine Glucose (UA) Negative (Negative) 08/26/21 19:15 Urine Ketones Trace (Negative) H 08/26/21 19:15 Urine Nitrite Negative (Negative) 08/26/21 19:15 Ur Leukocyte Esterase 1+ (Negative) H 08/26/21 19:15 Urine WBC (Auto) >30 /hpf (0-5) H 08/26/21 19:15 Urine RBC (Auto) 0-4 /hpf (0-4) 08/26/21 19:15 U Hyaline Cast (Auto) 1-5 /lpf (0-5) 08/26/21 19:15 U Epithel Cells (Auto) 0-5 /lpf (0-5) 08/26/21 19:15 Urine Bacteria (Auto) 4+ (Negative) H 08/26/21 19:15 Blood Type O Positive 08/26/21 19:07 Antibody Screen NEGATIVE 08/26/21 19:07 08/26/21 19:15 Urine Culture - Preliminary Urine,Clean Catch Gram negative bacilli 08/27/21 08/27/21 08/27/21 11:59 07:51 05:36 POC Glucose 107 H 118 H 119 H Electrocardiogram Date: 08/26/21 Findings: + NSST changes, + RBBB (incomplete) and + ST @ (101) Chest X-Ray Date: 08/26/21 Findings: + NAD
[2021-08-27] MEDS ORDERED: SODIUM CHLORIDE 0.9% 250 ML IV PRN ×2 (12:49→12:55)
--- NOTE | 2021-08-27 14:32 | Hospitalist Progress Note ---
Date of Service August 27, 2021 Assessment & Plan (1) COVID-19: (2) Closed fracture of left hip: (3) Fall: Plan: 76-year-old lady with PMH of HTN, paroxysmal PT, HLD, DM2 on oral meds, chronic anemia [baseline around 10], blindness of right eye, osteoporosis and CKD presented 08/26 to our ED secondary to mechanical fall and hurting her left hip. Patient is being managed for the following: #. Closed fracture of left hip Secondary to mechanical fall Admitting hip x-ray: Left femoral intertrochanteric fracture, no dislocation. Distal neurovascular status normal Orthopedics consulted: Plan for repair by orthopedics today evening. SCDs for now, anticoagulation per orthopedic recommendation. Revised Cardiac Risk Index (RCRI): 1. High-risk type of surgery (examples include vascular and any open intraperitoneal or intrathoracic procedures). No 2. History of ischemic heart disease (history of myocardial infarction or positive exercise test, current compliant of chest pain considered to be secondary to myocardial ischemia, use of nitrate therapy, or ECG with pathological Q waves; do not count prior coronary revascularization procedure unless one of the other criteria for ischemic heart disease is present). No 3. History of heart failure. No 4. History of cerebrovascular disease. No 5. Diabetes mellitus requiring treatment with insulin. No 6. Preoperative serum creatinine >2.0. No Pt has revised cardiac index score of 0 points. (Class I Risk.) 3.9% 30-day risk of , OR, or cardiac arrest Acceptable risk for cardiac complications if surgery recommended by Orthopedics and patient/family agreeable to attendant procedural benefits and risks. #. Acute blood loss anemia #. Chronic anemia Baseline hemoglobin around 10-11 Admitting hemoglobin dropped from 10.2 to 7.4 Secondary to hip fracture We will transfuse 1 unit prior to surgery today Continue to monitor hemoglobin today evening, daily and as needed #. COVID-19 Patient denies any signs or symptoms suggestive of COVID-19 Admitting CXR negative for any acute finding Patient tested positive for Covid in the ED on 08/26 Patient symptomatic, on room air, continue to monitor, does not qualify for any medications for COVID-19. Continue incentive spirometry while awake. #. Chronic medical conditions: HTN, HLD, DM, paroxysmal VT Continue with atenolol, atorvastatin. Hold lisinopril [lower BP] Metformin. Patient on SSI insulin. Continue to monitor. #. Symptomatic pyuria Follow-up urine culture, preliminary report of GNB baseline We will give her Rocephin. DVT prophylaxis SCDs. RE possible procedure Recommend pharmacologic anticoagulation once bleeding risk is deemed to be minimal and negligible pending Orthopedics evaluation. DNR. Patient's son Mr. Art Escobedo, can be reached at [phone]. Admission and Anticipated Discharge Date Admission Date: August 26, 2021 Subjective Patient was lying in bed, on room air, in mild to moderate distress, no new a cute events overnight. Patient reports pain fairly under control but not moving much. Patient denies headache/chills/chest pain/palpitation/other review of symptoms. Patient is n.p.o. and plan to have surgery today. Physical Exam Physical Exam: GENERAL: Alert and oriented x3. mild distress, on RA. HEENT: No pallor, no icterus. Pupils equal, round and reactive to light. Oral mucosa moist. NECK: No JVD, no neck masses. HEART: S1 and S2 heard. Regular rate and rhythm. No murmur, no gallop. RESPIRATORY SYSTEM: Normal AP diameter. No accessory muscle use. No wheezing, no crackles. ABDOMEN: Soft, bowel sounds present, nontender, no distention. CENTRAL NERVOUS SYSTEM: Alert and oriented x3. No facial droop. Speech is clear. Obeys simple commands. Moves extremities. EXTREMITIES: No edema, no erythema seen. Distal neurovascular status WNL. Results & Data Results & Data ([facility]) Vital Signs (Past 12 Hours) Vital Signs Temp Pulse Pulse Resp BP BP Pulse Ox 08/27/21 14:17 36.8 C 76 20 113/62 90 08/27/21 12:00 36.4 C L 80 19 109/58 L 91 08/27/21 07:52 37.1 C 92 H 18 99/58 L 91 08/27/21 05:31 93 H 107/57 L 08/27/21 03:58 37.2 C 99 H 18 100/67 91 (1) Closed fracture of left hip Encounter type: initial encounter Qualified Code(s): S72.002A - Fracture of unspecified part of neck of left femur, initial encounter for closed fracture (2) Fall Encounter type: initial encounter Qualified Code(s): W19.XXXA - Unspecified fall, initial encounter
[2021-08-27] MEDS ORDERED: cefTRIAXone SODIUM 1,000 MG in DEXTROSE 5% 50 ML IV SCH (15:00)
[2021-08-27] MEDS ORDERED: fentaNYL citrate 100 MCG/2 ML VIAL ONE (16:22)
[2021-08-27] MEDS ORDERED: PROPOFOL IV EMULSION 10 MG/ML 20 ML VIAL IV ONE (16:22)
[2021-08-27] MEDS ORDERED: MIDAZOLAM HCL 1 MG/ML 2ML VIAL ONE (16:22)
[2021-08-27] MEDS ORDERED: LIDOCAINE 2% 2 ML VIAL/AMP(20MG/ML) INFIL ONE (16:23)
[2021-08-27] MEDS ORDERED: KETAMINE 50 MG/5 ML SYRINGE ONE (16:33)
[2021-08-27] MEDS ORDERED: ATROPINE SO4 1 MG/ML 1ML VIAL ONE (16:38)
[2021-08-27] MEDS ORDERED: BUPIVACAINE 0.5 % 5 MG/1 ML MPF 30ML VIAL ONE (16:38)
[2021-08-27] MEDS ORDERED: SODIUM CHLORIDE 0.9% INJ 10 ML VIAL ONE (16:38)
--- NOTE | 2021-08-27 17:41 | History & Physical Bridge Note ---
Date of Service August 27, 2021 History & Physical Bridge Note I have examined the patient, reviewed the History & Physical and in the interval since the performance of the History & Physical I have noted the following changes of clinical significance: no changes noted
--- NOTE | 2021-08-27 17:50 | Orthopedic Consultation ---
Date of Consultation August 27, 2021 Assessment & Plan (1) Intertrochanteric fracture of left femur: The x-rays were discussed with the patient. At this time the patient will be taken to the OR for a left hip trochanteric nailing of the intertrochanteric fracture. All potential risks, benefits, complications, alternatives, and rehab have been discussed with the patient and she wishes to proceed. Consent was placed on the front of the chart. Thank you for the consultation. We will follow with the patient postoperatively. History of Present Illness Reason for Consultation: Left hip pain Attending Physician: Yudelka Thorpe MD History of Present Illness This is a patient sustained a fall yesterday and had significant left hip pain and inability to ambulate. She was brought to [facility] ER where x-rays were performed and she was noted to have a displaced intertrochanteric left femur fracture. As of note, she also tested positive for COVID-19. She is currently being set up for surgical fixation of the fracture. Allergies Allergy/AdvReac Type Severity Reaction Status Date / Time No Known Allergies Allergy Verified 08/26/21 21:33 Home Medications Medication Instructions Recorded Confirmed Type cholecalciferol (vitamin D3) 125 5,000 unit PO DAILY 09/07/18 08/26/21 History mcg (5,000 unit) tablet (Vitamin D3) magnesium oxide 400 mg PO BID 09/07/18 08/26/21 History metformin 500 mg tablet 500 mg PO BID 09/07/18 08/26/21 History alendronate 70 mg tablet 70 mg PO WK 08/26/21 08/26/21 History atenolol 25 mg tablet 12.5 mg PO DAILY 08/26/21 08/26/21 History atorvastatin 40 mg tablet 40 mg PO DAILY 08/26/21 08/26/21 History cyanocobalamin (vitamin B-12) 1,000 mcg PO DAILY 08/26/21 08/26/21 History 1,000 mcg tablet lisinopril 5 mg tablet 5 mg PO DAILY 08/26/21 08/26/21 History multivitamin 1 tab PO DAILY 08/26/21 08/26/21 History Patient History Medical History Anemia Blindness of right eye CKD (chronic kidney disease), stage III COVID-19 DM type 2 (diabetes mellitus, type 2) Dyslipidemia Hypertension Osteoporosis Paroxysmal ventricular tachycardia Syncope Surgical History H/O colonoscopy "2012- diverticulosis" H/O dilation and curettage H/O umbilical hernia repair History of cataract surgery Social History Smoking Status: Never smoker Hx Alcohol Use: No Hx Substance Use: No Preferred Language: Bengali Communication Ability: Effective Shoemaker Custom Required: No Beliefs That Will Affect Care: None marital status: / Current Living Situation: Family Current Living Situation Comment: lives with ranjeet Cordova How many Children do You have: 1 Other Information That Helps Us Care for You: No Feels Safe at Home: Yes Safety Concerns: Feels Safe At This Time Assistive Devices: Walker Physical Exam Constitutional: WD/WN, vitals as above ENMT: external ear and nose normal, oropharynx normal Neck: trachea midline Musculoskeletal: Hip: + deformity (Externally rotated left leg), + limited ROM of hip (Left hip), + joint line tenderness (Diffuse left hip) and + log roll test positive; no skin erythema and no ecchymosis Skin: no rashes, warm and dry Neurologic: normal touch/pain/proprioception Psychiatric: A+Ox3, euthymic affect Results & Data ([facility]) Vital Signs (Past 12 Hours) Vital Signs Temp Pulse Pulse Resp BP BP Pulse Ox 08/27/21 17:09 36.9 C 77 20 130/98 94 08/27/21 16:23 37.2 C 74 20 110/64 92 08/27/21 15:23 36.8 C 75 106/56 L 95 08/27/21 15:22 36.9 C 77 19 109/65 90 08/27/21 14:50 36.6 C 74 20 101/52 L 93 08/27/21 14:38 36.9 C 80 20 103/71 90 08/27/21 14:17 36.8 C 76 20 113/62 90 08/27/21 12:00 36.4 C L 80 19 109/58 L 91 08/27/21 07:52 37.1 C 92 H 18 99/58 L 91 Diagnostic Findings X-rays left hip demonstrate an intertrochanteric hip fracture.
[2021-08-27] MEDS ORDERED: fentaNYL citrate 100 MCG/2 ML VIAL IV PRN (19:07)
[2021-08-27] MEDS ORDERED: ONDANSETRON INJ 2 MG/ML 2 ML VIAL IV PRN (19:07)
[2021-08-27] MEDS ORDERED: ePHEDrine sulfate 50 MG/ML AMP IV PRN (19:07)
[2021-08-27] MEDS ORDERED: ATROPINE SULFATE 0.1 MG/ML 10ML SYR IV PRN (19:07)
--- NOTE | 2021-08-27 19:52 | Fluoroscopy Report ---
FL hip LT 2-3V HISTORY: 76 years-old Female LT TROCH NAIL acute fracture of the left hip COMPARISON: Left hip radiographs 08/26/2021 TECHNIQUE: 4 spot fluoroscopic images of the left hip were obtained utilizing 69.9 seconds fluoroscop y time FINDINGS: Status post placement of an intratrochanteric nail with medullary nicole fixating the acute fracture of the proximal left femur. There is improved near-anatomic alignment. Expected postoperative soft tissu e swelling with deep tissue air. No unexpected opaque foreign body. IMPRESSION: Fluoroscopic assistance as above. ACT 112: Negative or not required by law. The above report was generated using voice recognition software. It may contain grammatical, syntax o r spelling errors. Electronically signed by: Chuck Denise M.D. 08/27/2021 7:51 PM
--- NOTE | 2021-08-27 20:05 | Post Operative Brief Note ---
Immediate Post Op Note v1 Date of Surgery August 27, 2021 Pre & Post Diagnosis Operation Date: 08/27/21 10:10 Pre-Op Diagnosis: Displaced left intertrochanteric hip fracture Post-Op Diagnosis: Displaced left intertrochanteric hip fracture I identified the patient and participated in the time-out.: Yes Procedure Operation Date: 08/27/21 10:10 Actual Procedures p Left hip open reduction internal fixation displaced intertrochanteric hip fracture with Synthes 11 mm x 235 mm distally locked trochanteric Nail(Left) - Frandy Coffey DO Surgeon Frandy Coffey DO Metal Extrusion Supervisor None Estimated Blood Loss 30 Findings Consistent with Post-Op Diagnosis Drains Moreno Catheter Anesthesia Type Spinal MAC Complications none Disposition Accompanied Patient To Recovery: No
--- NOTE | 2021-08-27 20:34 | Anesthesiology Progress Note ---
Date of Service August 27, 2021 Anesthesia Post Procedure Vital Signs Vital Signs: Temp Pulse Pulse Resp BP BP Pulse Ox 08/27/21 20:25 37.0 C 74 18 101/46 L 99 08/27/21 20:15 75 18 123/92 100 08/27/21 20:06 37.4 C 75 18 119/57 L 98 08/27/21 17:09 36.9 C 77 20 130/98 94 08/27/21 16:23 37.2 C 74 20 110/64 92 08/27/21 15:23 36.8 C 75 106/56 L 95 08/27/21 15:22 36.9 C 77 19 109/65 90 08/27/21 14:50 36.6 C 74 20 101/52 L 93 08/27/21 14:38 36.9 C 80 20 103/71 90 08/27/21 14:17 36.8 C 76 20 113/62 90 08/27/21 12:00 36.4 C L 80 19 109/58 L 91 08/27/21 09:40 73 08/27/21 07:52 37.1 C 92 H 18 99/58 L 91 08/27/21 05:31 93 H 107/57 L 08/27/21 03:58 37.2 C 99 H 18 100/67 91 08/27/21 00:34 100/49 L 08/26/21 23:56 101 H 119/64 08/26/21 23:25 36.9 C 90 16 144/80 H 96 08/26/21 23:13 36.9 C 90 16 144/80 H 96 08/26/21 21:30 105 H 23 128/63 92 08/26/21 21:00 113 H 18 133/68 92 Pain Intensity Left Hip: Pain Intensity: 1 Transfer of Care Handoff Completed per policy Notes Mental Status: alert / awake / arousable Patient Amnestic to Procedure: Yes Nausea / Vomiting: adequately controlled Pain: adequately controlled Airway Patency, RR, SpO2: stable & adequate BP & HR: stable & adequate Hydration State: stable & adequate Neuraxial Anesthesia: was administered and sensory block is resolving Anesthetic Complications: no major complications apparent and Pt Satisfied with anesthetic care
[2021-08-27] MEDS ORDERED: NALOXONE HCL 0.4 MG/1 ML VIAL/CARP IV PRN (20:44)
[2021-08-27] MEDS: SODIUM CHLORIDE 0.9% 1000ML 1,000 ML IV SCH (21:32)
[2021-08-27 23:06] LABS: Hematocrit (blood only) 27.8 % (37-47); Hemoglobin 9.3 g/dL (12.0-16.0)
--- NOTE | 2021-08-28 00:45 | Operative Report (OR) ---
DATE OF PROCEDURE: 08/27/2021. PREOPERATIVE DIAGNOSIS: Displaced left intertrochanteric hip fracture. POSTOPERATIVE DIAGNOSES: Displaced left intertrochanteric hip fracture, including coronavirus positi ve. PROCEDURE: Open reduction and internal fixation of left displaced intertrochanteric hip fracture wit h a Synthes 235 mm x 11 mm trochanteric fixation nail with a 90 mm spiral blade and a 38 mm distal lo cking screw. SURGEON: Frandy Coffey DO. ATOMIC WELDER: None. ANESTHESIA: Spinal with sedation and local. SPECIMENS: None. DRAINS: None. COMPLICATIONS: None. BLOOD LOSS: 30 mL. PERTINENT HISTORY: This is a 76-year-old female who sustained a mechanical fall at home. She had hi p pain on the left then presented to [facility]. She was evaluated. Noted to have a displaced left intertrochanteric hip fracture. Upon testing for coronavirus, a standard operating protocol, she was noted to be COVID positive. The patient was then admitted to the hospital for med ical optimization and preparation for fixation of her hip fracture and also concomitant treatment of her coronavirus. The patient was then scheduled for surgery as indicated. All potential risks, benefits, complications, alternatives, rehab potential for incomplete relief of symptoms, need for further surgery, DVT, PE, , persistent pain, swelling, scarring, weakness, ne urovascular injury, wound complications, hardware failure, nonunion, malunion, bone fracture were dis cussed with the patient. The patient decided to proceed with the procedure as indicated. DESCRIPTION OF PROCEDURE: The patient was transferred to the operative suite. The proper site was cain ntified. The consent was reviewed, the patient was then administered sedation and spinal anesthetic. Once appropriate, the patient then transferred to the fracture table where the lower extremity was pl aced in fracture table traction and the nonoperative leg was placed in the well leg sutherland. All bony prominences were properly padded and protected. The padded post was placed in the peroneal and the pa tient was positioned appropriately. Next the left leg was placed on traction and reduction of the fra cture was performed under fluoroscopic control. Next the operative hip was then sterilely prepped and draped in the usual fashion. Next a 10-blade scalpel incision was used to make an incision proximal to the greater trochanter. The incision was deep in the subcutaneous tissue and fascia and the tip of the greater trochanter was then palpated followed by placement of a guide pin under fluoroscopic con trol driven into the greater trochanter down to the level of the less trochanter. This was confirmed in AP and lateral projections followed by placement of the proximal reamer over the cannulated guide pin. Next the reamer was then removed using the soft tissue protector, which was also removed. Next t he ball tip guide nicole was placed into the proximal femur under fluoroscopic control confirmed with AP and lateral fluoroscope projections. Next the trochanteric nail was then passed over the guide nicole i nto the femur, the guide nicole was removed and then under fluoroscopic control appropriate level of the femoral nail was then placed in AP projections. Next the targeting device was then fixed to the driv ing handle and 10-blade scalpel incision was made in the lateral aspect of the thigh. Next the tissue protector and cannulated guide system was then passed into the soft tissue until it was securely fix ed against a lateral aspect of the femoral cortex. This was also confirmed under C-arm. Next the guid e pin for the spiral blade was driven into the lateral aspect of the femur confirming this with AP la teral projections until the guide pin was in the center of the femoral neck and head approximately 5 mm from the subcortical bone of the femur. Next the spiral blade was then measured and then the later al cortex was then drilled with the cortex reamer followed by use of the triple reamer with the depth stop set at appropriate depth. In this case a 90 mm spiral blade was then inserted over the cannulat ed guide nicole under fluoroscopic control. This was seated appropriately then traction was reduced from the limb and the fracture was then gently compressed and then locked proximally with the flexible sc rewdriver. Next the spiral blade was then disengaged from its insertion handle, insertion handle was then removed and the guide pin was removed from the femoral neck and head. Next the lateral targeting arm was used to insert a 38 mm distal locking screw. First a 10-blade scalpel incision was made in t he lateral aspect of the thigh, captured drill sleeves were then tamped gently to the lateral aspect of the femoral cortex then the locking screw hole was then drilled, measured and then an appropriate length screw was placed to lock the distal aspect of the nail. Next targeting sleeves were then remov ed. The insertion arm was then removed from the nail and final x-rays were obtained in AP and lateral projections. All incisions were then copiously irrigated with sterile normal saline. The proximal gl uteus fascia was then closed using interrupted #1 Vicryl, the dermis was closed using buried interrup milind 2-0 Vicryl sutures in all three incisions and the skin was then closed using skin jessica. A ster ile compressive dressing consisting of Xeroform gauze, sterile 4 x 4's and Tegaderm was applied. The patient was then awakened and taken to recovery in stable condition. Job ID: [id number]
[2021-08-28] MEDS: oxyCODONE HCL IR 5 MG TAB (IMMEDIATE RELEASE) PO PRN (01:11)
[2021-08-28] MEDS ORDERED: ACETAMINOPHEN 1000 MG/100 ML IV IV ONE (04:45)
[2021-08-28 06:06] LABS: Hematocrit (blood only) 23.5 % (37-47); Mean Corpuscular Hemoglobin 30.8 pg (25-34); Mean Corpuscular Volume 90.4 fL (80-100); Mean Platelet Volume 10.3 fL (7.4-10.4); Platelet Count 129 K/uL (130-400); RDW Coefficient of Variation 15.4 % (11.5-14.5); RDW Standard Deviation 50.9 fL (36.4-46.3); White Blood Count 6.29 K/uL (4.8-10.8)
[2021-08-28] MEDS ORDERED: CONSULT PHARMACY STA (06:26)
[2021-08-28 06:38] LABS: Albumin Level 2.1 gm/dl (3.4-5.0); BUN Creatinine Ratio 33.7 (10-20); Calcium 7.4 mg/dl (8.5-10.1); Creatinine Clr Calc Pharmacy 26.4 ml/min; Est GFR (African American) 57.6 ml/min; Est GFR (Non-African American) 49.7 ml/min; Magnesium 2.3 mg/dl (1.8-2.4); Potassium 4.5 mmol/L (3.5-5.1)
[2021-08-28] MEDS ORDERED: CEFEPIME 2,000 MG/20 ML VIAL IV ONE (06:45)
[2021-08-28] MEDS ORDERED: SODIUM CHLORIDE 0.9% 1000ML 1,000 ML IV ONE (06:58)
[2021-08-28 07:01] LABS: Albumin Globulin Ratio 0.7 (0.9-2); Bilirubin,Total 0.3 mg/dl (0.2-1); Globulin 3.1 gm/dl (2.5-4.0); Total Protein 5.2 gm/dl (6.4-8.2)
--- NOTE | 2021-08-28 07:15 | XRay Report ---
XR hip LT min 2V CLINICAL HISTORY: Post-Operative implant position TECHNIQUE: 2 views of the left hip and single frontal view of the pelvis were obtained. Comparison: Comparison is made to left hip 2 views 08/26/2023 1 FINDINGS: Interval placement of a intramedullary nicole. The fracture fragments are in anatomic alignment. Subcuta neous emphysema and surgical jessica are seen. The bony mineralization is normal. IMPRESSION: Expected postsurgical appearance with satisfactory alignment of fracture fragments status post placem ent of intramedullary nicole. ACT 112: Negative or not required by law. Electronically signed by: Avery Jefferson M.D. 08/28/2021 7:14 AM
[2021-08-28 07:17] LABS: Basophils # (auto) 0.01 K/uL (0-0.2); Basophils % (auto) 0.2 %; Immature Granulocytes # (auto) 0.02 K/uL (0.00-0.02); Immature Granulocytes % (auto) 0.3 %; Lymphocytes # (auto) 0.52 K/uL (1.2-3.4); Lymphocytes % (auto) 8.3 %; Monocytes # (auto) 0.89 K/uL (0.11-0.59); Monocytes % (auto) 14.1 %; Neutrophils # (auto) 4.85 K/uL (1.4-6.5); Neutrophils % (auto) 77.1 %; Ovalocytes 1+
[2021-08-28] MEDS: MULTIVITAMIN TAB PO SCH (09:09)
[2021-08-28] MEDS: CHOLECALCIFEROL 1,000 UNITS 25 MCG TAB PO SCH (09:09)
[2021-08-28] MEDS: ATENOLOL 25 MG TABLET PO SCH (09:09)
[2021-08-28] MEDS: traMADol HCL 50 MG TABLET PO PRN ×3 (09:17→22:54)
[2021-08-28] MEDS: INSULIN ASPART 100 UNITS/ML 3 ML PEN SC SCH ×4 (11:07→20:44)
--- NOTE | 2021-08-28 15:37 | Orthopedic Progress Note ---
Date of Service August 28, 2021 Assessment & Plan (1) Intertrochanteric fracture of left femur: Plan: Postop day #1 status post left trochanteric nailing Toe-touch weightbearing left lower extremity. PT/OT Dressing change planned for tomorrow. DVT prophylaxisTED stockings, aspirin 81 mg twice daily Discharge planninguncertain at this time. Will probably require assisted facility versus rehab. Admission and Anticipated Discharge Date Admission Date: August 26, 2021 Subjective States the pain is controlled in the left hip. States the hip feels heavy. Denies chest pain, shortness of breath, lightheadedness. Physical Exam Constitutional: WD/WN, vitals as above ENMT: external ear and nose normal, oropharynx normal Neck: trachea midline Musculoskeletal: Hip: + surgical incision (Dressing C/D/I lateral left hip); no deformity (Externally rotated left leg), no skin erythema and no ecchymosis Skin: no rashes, warm and dry Neurologic: normal touch/pain/proprioception Psychiatric: A+Ox3, euthymic affect Results & Data ([facility]) Vital Signs (Past 12 Hours) Vital Signs Temp Pulse Resp BP BP Pulse Ox Pulse Ox 08/28/21 15:13 36.5 C 72 17 110/52 L 94 08/28/21 12:00 94 08/28/21 11:43 36.6 C 77 17 131/56 L 99 08/28/21 08:00 94 08/28/21 07:03 36.4 C L 85 22 98/55 L 98 08/28/21 06:27 37.0 C 08/28/21 04:24 37.8 C H 87 18 127/69 97 Laboratory Results Laboratory Tests 08/28/21 08/28/21 05:43 05:43 Hgb 8.0 L Hct 23.5 L BUN 36 H Creatinine 1.07 Diagnostic Findings Postoperative left hip x-rays reviewed. Well aligned left intertrochanteric fracture with stable hardware.
--- NOTE | 2021-08-28 17:06 | Hospitalist Progress Note ---
Date of Service August 28, 2021 Assessment & Plan (1) Intertrochanteric fracture of left femur: (2) COVID-19: (3) Fall: Plan: 76-year-old lady with PMH of HTN, paroxysmal PT, HLD, DM2 on oral meds, chronic anemia [baseline around 10], blindness of right eye, osteoporosis and CKD presented 08/26 to our ED secondary to mechanical fall and hurting her left hip. Patient is being managed for the following: #. Closed fracture of left hip Secondary to mechanical fall Admitting hip x-ray: Left femoral intertrochanteric fracture, no dislocation. Distal neurovascular status normal Orthopedics consulted: Open reduction and internal fixation of left displaced intertrochanteric hip fracture with a Synthes 235 mm x 11 mm trochanteric fixation nail with a 90 mm spiral blade and a 38 mm distal locking screw by Dr. Coffey on 08/27 SCDs for now, anticoagulation per orthopedic recommendation -aspirin 81 mg twice daily PT/OT #. Acute blood loss anemia #. Chronic anemia Baseline hemoglobin around 10-11 Admitting hemoglobin dropped from 10.2 to 7.4 Secondary to hip fracture Status post 1 unit 08/27 prior to surgery. Hemoglobin fairly stable, monitor hemoglobin daily and as needed. #. COVID-19 Patient denies any signs or symptoms suggestive of COVID-19 Admitting CXR negative for any acute finding Patient tested positive for Covid in the ED on 08/26 Patient symptomatic, on room air, continue to monitor, does not qualify for any medications for COVID-19. Continue incentive spirometry while awake. #. Chronic medical conditions: HTN, HLD, DM, paroxysmal VT Continue with atenolol, atorvastatin. Hold lisinopril [lower BP] Metformin. Patient on SSI insulin. Continue to monitor. #. Symptomatic pyuria Follow-up urine culture, preliminary report of GNB baseline We will give her Rocephin. DVT prophylaxisSCDs. Baby aspirin twice daily per orthopedics. DNR. Disposition: Likely need placement, pending evaluation. Patient's son Mr. Art Escobedo, can be reached at [phone]. Admission and Anticipated Discharge Date Admission Date: August 26, 2021 Subjective Patient was lying in bed, on 1.5 L nasal cannula oxygen, in mild distress, no new acute events overnight. Patient expressed frustration upon her situation. Updated patient about her plan of care and counselled. Patient had her left hip repair yesterday, has not moved bowel or gas today, patient reports pain in her left hip bearable, denies any headache/chest pain/palpitation/other review of symptoms. Physical Exam Physical Exam: GENERAL: Alert and oriented x3. mild distress, on 1.5L HEENT: No pallor, no icterus. Pupils equal, round and reactive to light. Oral mucosa moist. NECK: No JVD, no neck masses. HEART: S1 and S2 heard. Regular rate and rhythm. No murmur, no gallop. RESPIRATORY SYSTEM: Normal AP diameter. No accessory muscle use. No wheezing, no crackles. ABDOMEN: Soft, bowel sounds present, nontender, no distention. CENTRAL NERVOUS SYSTEM: Alert and oriented x3. No facial droop. Speech is clear. Obeys simple commands. Moves extremities. EXTREMITIES: No edema, no erythema seen. Distal neurovascular status WNL. Lateral Left hip with clean dressing without soakage. Results & Data Results & Data ([facility]) Vital Signs (Past 12 Hours) Vital Signs Temp Pulse Resp BP BP Pulse Ox Pulse Ox 08/28/21 16:00 94 08/28/21 15:13 36.5 C 72 17 110/52 L 94 08/28/21 12:00 94 08/28/21 11:43 36.6 C 77 17 131/56 L 99 08/28/21 08:00 94 08/28/21 07:03 36.4 C L 85 22 98/55 L 98 08/28/21 06:27 37.0 C (1) Fall Encounter type: initial encounter Qualified Code(s): W19.XXXA - Unspecified fall, initial encounter
[2021-08-28] MEDS: ASPIRIN 81 MG ECTAB PO SCH (20:13)
[2021-08-29] MEDS ORDERED: CEFEPIME 500 MG in SYRINGE 0 ML IV SCH (06:00)
[2021-08-29] MEDS: cefTRIAXone SODIUM 1,000 MG in DEXTROSE 5% 50 ML IV SCH (06:46)
[2021-08-29 07:43] LABS: Hematocrit (blood only) 22.2 % (37-47); Hemoglobin 7.5 g/dL (12.0-16.0); Mean Corpuscular Hgb Conc 33.8 g/dL (32-36); Mean Corpuscular Volume 88.8 fL (80-100); Platelet Count 151 K/uL (130-400); RDW Standard Deviation 48.9 fL (36.4-46.3); White Blood Count 6.78 K/uL (4.8-10.8)
[2021-08-29 08:15] LABS: BUN Creatinine Ratio 34.3 (10-20); Calcium 7.7 mg/dl (8.5-10.1); Creatinine Clr Calc Pharmacy 27.7 ml/min; Est GFR (Non-African American) 52.6 ml/min; Magnesium 2.2 mg/dl (1.8-2.4)
[2021-08-29] MEDS: MULTIVITAMIN TAB PO SCH (08:46)
[2021-08-29] MEDS: traMADol HCL 50 MG TABLET PO PRN ×2 (08:46→14:41)
[2021-08-29] MEDS: CHOLECALCIFEROL 1,000 UNITS 25 MCG TAB PO SCH (08:46)
[2021-08-29] MEDS: ATENOLOL 25 MG TABLET PO SCH (08:47)
[2021-08-29] MEDS: ASPIRIN 81 MG ECTAB PO SCH ×2 (08:48→19:29)
[2021-08-29] MEDS: INSULIN ASPART 100 UNITS/ML 3 ML PEN SC SCH ×4 (09:17→20:26)
--- NOTE | 2021-08-29 10:54 | Orthopedic Progress Note ---
Date of Service August 29, 2021 Assessment & Plan (1) Intertrochanteric fracture of left femur: Plan: Postop day #2 status post left trochanteric nailing Toe-touch weightbearing left lower extremity. PT/OT Dressing changed today DVT prophylaxisTED stockings, aspirin 81 mg twice daily Discharge planninguncertain at this time. Will probably require custodial facility versus rehab. Ortho will sign off for now. Admission and Anticipated Discharge Date Admission Date: August 26, 2021 Subjective patient laying in bed resting. No complaints today of CP, SOB, calf pain. she notes mild pain to left hip Physical Exam Physical Exam: Toes mobile, NVI. Calves soft, non tender. Dressing changed. . Results & Data ([facility]) Vital Signs (Past 12 Hours) Vital Signs Temp Pulse Pulse Resp BP BP Pulse Ox 08/29/21 07:47 85 08/29/21 07:46 08/29/21 06:41 36.8 C 80 18 148/72 H 98 08/29/21 05:17 36.8 C 87 18 145/70 H 97 08/28/21 23:00 36.6 C 102 H 22 151/81 H 97 Pulse Ox 08/29/21 07:47 08/29/21 07:46 98 08/29/21 06:41 08/29/21 05:17 08/28/21 23:00
--- NOTE | 2021-08-29 13:27 | Hospitalist Progress Note ---
Date of Service August 29, 2021 Assessment & Plan (1) Intertrochanteric fracture of left femur: (2) COVID-19: (3) Fall: (4) E. coli UTI: Plan: 76-year-old lady with PMH of HTN, paroxysmal PT, HLD, DM2 on oral meds, chronic anemia [baseline around 10], blindness of right eye, osteoporosis and CKD presented 08/26 to our ED secondary to mechanical fall and hurting her left hip. Patient is being managed for the following: #. Closed fracture of left hip Secondary to mechanical fall Admitting hip x-ray: Left femoral intertrochanteric fracture, no dislocation. Distal neurovascular status normal Orthopedics consulted: Open reduction and internal fixation of left displaced intertrochanteric hip fracture with a Synthes 235 mm x 11 mm trochanteric fixation nail with a 90 mm spiral blade and a 38 mm distal locking screw by Dr. Coffey on 08/27 SCDs for now, anticoagulation per orthopedic recommendation -aspirin 81 mg twice daily PT/OT Encouraged spirometry every hour while awake, patient not doing it per her. Communicated to the nursing staff and respiratory team that it is very important for her to do incentive spirometry every hour while awake. #. Constipation Patient has not moved bowel or gas since after surgery Bowel sounds good on examination. Continue to monitor, bowel regimen, follow-up with KUB x-ray tomorrow if patient is not moving bowel still. We will make laxatives scheduled for few days. #. Acute blood loss anemia #. Chronic anemia Baseline hemoglobin around 10-11 Admitting hemoglobin dropped from 10.2 to 7.4 Secondary to hip fracture Status post 1 unit 08/27 prior to surgery. Hemoglobin slightly lower today at 7.5, follow-up after noon hemoglobin, transfuse for hemoglobin less than 7. #. COVID-19 Patient denies any signs or symptoms suggestive of COVID-19 Admitting CXR negative for any acute finding Patient tested positive for Covid in the ED on 08/26 Patient symptomatic, on room air, continue to monitor, does not qualify for any medications for COVID-19. Continue incentive spirometry while awake, flutter valve #. Chronic medical conditions: HTN, HLD, DM, paroxysmal VT Continue with atenolol, atorvastatin, lisinopril Hold Metformin. Patient on SSI insulin. Continue to monitor. #. Symptomatic pyuria #. E. coli UTI Follow-up urine culture, E. coli UTI pansensitive. We will give her Rocephin. last dose 08/30 DVT prophylaxisSCDs. Baby aspirin twice daily per orthopedics. DNR. Disposition: Likely need placement, pending evaluation. CM to assist with discharge planning. Patient's son Mr. Art Escobedo, can be reached at [phone]. Admission and Anticipated Discharge Date Admission Date: August 26, 2021 Subjective Patient was lying semiupright in bed, on 1 L nasal cannula oxygen, NAD, no acute events overnight per patient. Patient looks slightly better than yesterday. Patient reports bearable pain at surgery site. Patient has not moved bowel and gas. Patient looks lethargic. Patient reports eating okay. Patient report not doing incentive spirometry. Patient advised to do 10 times every hour while awake. Will ask nursing team and respiratory team to help her with incentive spirometry. Patient denies any headache/dizziness/chills/chest pain/palpitation/other review of symptoms. Physical Exam Physical Exam: GENERAL: Alert and oriented x3. NAD, on 1 L. Looks lethargic. HEENT: No pallor, no icterus. Pupils equal, round and reactive to light. Oral mucosa moist. NECK: No JVD, no neck masses. HEART: S1 and S2 heard. Regular rate and rhythm. No murmur, no gallop. RESPIRATORY SYSTEM: Normal AP diameter. No accessory muscle use. No wheezing, no crackles. Decreased breath sounds. ABDOMEN: Soft, bowel sounds present, nontender, no distention. CENTRAL NERVOUS SYSTEM: Alert and oriented x3. No facial droop. Speech is c lear. Obeys simple commands. Moves extremities. EXTREMITIES: No edema, no erythema seen. Distal neurovascular status WNL. Lateral Left hip with clean dressing without soakage. Results & Data Results & Data ([facility]) Vital Signs (Past 12 Hours) Vital Signs Temp Pulse Pulse Resp BP BP Pulse Ox 08/29/21 11:52 36.7 C 79 20 136/91 96 08/29/21 11:00 08/29/21 07:47 85 08/29/21 07:46 08/29/21 06:41 36.8 C 80 18 148/72 H 98 08/29/21 05:17 36.8 C 87 18 145/70 H 97 Pulse Ox 08/29/21 11:52 08/29/21 11:00 98 08/29/21 07:47 08/29/21 07:46 98 08/29/21 06:41 08/29/21 05:17 (1) Fall Encounter type: initial encounter Qualified Code(s): W19.XXXA - Unspecified fall, initial encounter
[2021-08-29] MEDS: POLYETHYLENE (MIRALAX) 17 GM PACK PO SCH (14:41)
[2021-08-29 15:42] LABS: Hematocrit (blood only) 21.8 % (37-47); Hemoglobin 7.4 g/dL (12.0-16.0)
[2021-08-29] MEDS ORDERED: METOPROLOL TARTRATE 1 MG/ML VIAL IV ONE (16:30)
[2021-08-29] MEDS ORDERED: METOPROLOL TARTRATE 1 MG/ML VIAL IV STA (16:31)
[2021-08-29] MEDS ORDERED: SODIUM CHLORIDE 0.9% 250 ML IV PRN (16:33)
[2021-08-29] MEDS ORDERED: ADENOSINE IV SOLN 3 MG/ML 2 ML VIAL IV STA (17:00)
[2021-08-29] MEDS ORDERED: ADENOSINE IV SOLN 3 MG/ML 2 ML VIAL IV ONE (17:04)
[2021-08-29 17:18] LABS: Hematocrit (blood only) 24.1 % (37-47); Mean Corpuscular Volume 90.3 fL (80-100); Platelet Count 204 K/uL (130-400); RDW Coefficient of Variation 14.8 % (11.5-14.5); RDW Standard Deviation 48.9 fL (36.4-46.3); Red Blood Count 2.67 M/uL (4.2-5.4); White Blood Count 8.68 K/uL (4.8-10.8)
[2021-08-29 17:35] LABS: Mean Corpuscular Hgb Conc 33.2 g/dL (32-36)
[2021-08-29 17:37] LABS: Albumin Level 2.1 gm/dl (3.4-5.0); BUN Creatinine Ratio 30.6 (10-20); Calcium 7.4 mg/dl (8.5-10.1); Creatinine Clr Calc Pharmacy 28.3 ml/min; Est GFR (African American) 62.5 ml/min; Est GFR (Non-African American) 53.9 ml/min; Magnesium 2.2 mg/dl (1.8-2.4); Potassium 4.5 mmol/L (3.5-5.1)
--- NOTE | 2021-08-29 17:39 | Communication Note ---
Date of Service: August 29, 2021 I was paged around 4:15 PM today for heart racing 170s to 180s in the patient. I went in and evaluated the patient at bedside. Patient is a 76-year-old lady with PMH of HTN, paroxysmal PT, HLD, DM2 on oral meds, chronic anemia [baseline around 10], blindness of right eye, osteoporosis and CKD presented 08/26 to our ED secondary to mechanical fall and hurting her left hip. She is a status post Open reduction and internal fixation of left displaced intertrochanteric hip fracture 08/27. Upon eXam: Tachycardic, no murmurs appreciated, decreased breath sound as in a.m., patient on nasal cannula oxygen 1 L as an a.m., oral mucosa dry, no BLE edema appreciated. Abdomen was soft and nontender. Patient denied any discomfort. EKG was reviewed and revealed SVTs with heart rate in 180. Patient denied any chest pain, her mentation has not changed much from a.m. bedside examination, no signs and symptoms of respiratory distress. Blood pressure was measured and was 110/90. Gave her 5 mg dose of IV metoprolol. Did not affect heart rate muchheart rate was down to 1 65-1 70s. Again climbed up. Consulted cardiology and had discussion with ground crew lines person all along her management afterward. Patient's repeat hemoglobin during the day was 7.4, will transfuse a unit of blood. Repeat hemoglobin at 10 PM today. Transfuse for hemoglobin less than 8. Stat CBC, BMP and magnesium were sent. After discussion with cardiology, patient was given adenosine 6 mg, I was at the bedside. Heart rate did go down to 80s after administration of adenosine. Upon telemetry review, she was in sinus rhythm. Her blood pressure improved to 137/81. We will follow up with the lytes and replace as appropriate. Nursing staff made aware of urgent need for blood transfusion. Will get echo tomorrow. Cardiology made aware of the progress. We will get repeat EKG. Total critical care time spent was 35 minutes.
[2021-08-29 17:42] LABS: Albumin Globulin Ratio 0.5 (0.9-2); Bilirubin,Total 0.4 mg/dl (0.2-1); Globulin 3.9 gm/dl (2.5-4.0); Troponin I 0.02 ng/ml (0-0.045)
[2021-08-29] MEDS ORDERED: CALCIUM GLUCONATE 10% 1,000 MG in SODIUM CHLORIDE 0.9% 50 ML IV ONE (18:00)
--- NOTE | 2021-08-29 18:13 | XRay Report ---
XR chest 1V portable HISTORY: 76 years-old Female chest discomfort acute atypical chest pain COMPARISON: Chest radiograph 08/26/2021 TECHNIQUE: Portable AP view of the chest FINDINGS: Cardiac silhouette is enlarged. Ill-defined interstitial coarsening is similar to comparison. No pneu mothorax, or pleural effusion. Degenerative changes of the shoulders and spine. IMPRESSION: Cardiomegaly with chronic interstitial coarsening. ACT 112: Negative or not required by law. The above report was generated using voice recognition software. It may contain grammatical, syntax o r spelling errors. Electronically signed by: Chuck Denise M.D. 08/29/2021 6:11 PM
[2021-08-29] MEDS: METOPROLOL TARTRATE 25 MG TAB PO SCH (18:41)
[2021-08-29] MEDS: DOCUSATE SODIUM 100 MG CAP PO SCH (19:29)
[2021-08-29] MEDS: MoRPHine SULFATE 2 MG/ML CARP IV PRN (19:40)
[2021-08-30 00:01] LABS: Hematocrit (blood only) 26.3 % (37-47); Hemoglobin 8.8 g/dL (12.0-16.0)
[2021-08-30] MEDS: cefTRIAXone SODIUM 1,000 MG in DEXTROSE 5% 50 ML IV SCH (06:47)
[2021-08-30 07:08] LABS: Hematocrit (blood only) 25.7 % (37-47); Hemoglobin 8.6 g/dL (12.0-16.0); Mean Corpuscular Hemoglobin 29.5 pg (25-34); Mean Corpuscular Hgb Conc 33.5 g/dL (32-36); Mean Platelet Volume 9.9 fL (7.4-10.4); Platelet Count 155 K/uL (130-400); RDW Standard Deviation 48.4 fL (36.4-46.3); Red Blood Count 2.92 M/uL (4.2-5.4); White Blood Count 5.98 K/uL (4.8-10.8)
[2021-08-30] MEDS: MoRPHine SULFATE 2 MG/ML CARP IV PRN ×2 (07:36→17:44)
[2021-08-30 07:43] LABS: BUN Creatinine Ratio 34.8 (10-20); Calcium 7.9 mg/dl (8.5-10.1); Creatinine Clr Calc Pharmacy 38.2 ml/min; Est GFR (African American) 89.9 ml/min; Est GFR (Non-African American) 77.6 ml/min
[2021-08-30] MEDS: INSULIN ASPART 100 UNITS/ML 3 ML PEN SC SCH ×4 (08:48→21:05)
[2021-08-30] MEDS: DOCUSATE SODIUM 100 MG CAP PO SCH ×2 (08:49→20:32)
[2021-08-30] MEDS: POLYETHYLENE (MIRALAX) 17 GM PACK PO SCH (08:49)
[2021-08-30] MEDS: MULTIVITAMIN TAB PO SCH (08:49)
[2021-08-30] MEDS: ASPIRIN 81 MG ECTAB PO SCH ×2 (08:49→20:31)
[2021-08-30] MEDS: METOPROLOL TARTRATE 25 MG TAB PO SCH ×2 (08:50→20:31)
[2021-08-30] MEDS: CHOLECALCIFEROL 1,000 UNITS 25 MCG TAB PO SCH (08:50)
[2021-08-30] MEDS ORDERED: lisinopril 5 MG TAB PO SCH (09:00)
--- NOTE | 2021-08-30 11:09 | Electrocardiogram Report ---
Test Reason : Blood Pressure : / mmHG Vent. Rate : 180 BPM Atrial Rate : 192 BPM P-R Int : 000 ms QRS Dur : 102 ms QT Int : 264 ms P-R-T Axes : 000 057 000 degrees QTc Int : 457 ms Supraventricular tachycardia Low voltage QRS Incomplete right bundle branch block Nonspecific ST and T wave abnormality Abnormal ECG When compared with ECG of 26-AUG-2021 18:14, Significant changes have occurred Confirmed by Yayo Hope ([id number]) on 08/30/2021 11:09:12 AM Referred By: REFERRED SELF Confirmed By:Yayo Hope
--- NOTE | 2021-08-30 11:10 | Electrocardiogram Report ---
Test Reason : Blood Pressure : / mmHG Vent. Rate : 095 BPM Atrial Rate : 095 BPM P-R Int : 120 ms QRS Dur : 110 ms QT Int : 358 ms P-R-T Axes : 049 045 011 degrees QTc Int : 449 ms Normal sinus rhythm Incomplete right bundle branch block Borderline ECG When compared with ECG of 29-AUG-2021 16:19, (unconfirmed) Significant changes have occurred Confirmed by Yayo Hope ([id number]) on 08/30/2021 11:10:06 AM Referred By: REFERRED SELF Confirmed By:Yayo Hope
--- NOTE | 2021-08-30 11:13 | Cardiology Consultation ---
Date of Consultation August 30, 2021 Assessment & Plan (1) PSVT (paroxysmal supraventricular tachycardia): (2) COVID-19: (3) E. coli UTI: (4) Intertrochanteric fracture of left femur: (5) Anemia: Discontinue outpatient atenolol. Continue metoprolol tartrate 25 mg twice daily. Monitor telemetry while hospitalized. Replace electrolytes as indicated. Recommend adenosine 6 mg IV push with recurrent supraventricular tachycardia. Monitor blood pressure, hold lisinopril at this time to allow for titration of beta-irma if necessary. Supportive care/pain management/antibiotics as per internal medicine and orthopedic surgery. History of Present Illness Reason for Consultation: SVT Requesting Physician: Dr. Thorpe Attending Physician: Yudelka Thorpe MD History of Present Illness 76-year-old female admitted with fall and intertrochanteric fracture of left femur. Subsequently diagnosed with COVID-19 infection and E. coli UTI. I was contacted by hospitalist due to heart rate of 180 bpm. ECG demonstrating supraventricular tachycardia. Patient treated with 5 mg of IV Lopressor and 6 mg of IV adenosine. She subsequently converted to sinus rhythm. Atenolol discontinued in favor of metoprolol tartrate 25 mg twice daily. She has remained in sinus rhythm. Patient seen and examined at the bedside. She is a poor historian due to underlying dementia. Reports discomfort of her left lower extremity. No chest pain, shortness of breath, or palpitations. Denies personal history of coronary disease, congestive heart failure, or rheumatic fever as a child. Allergies Allergy/AdvReac Type Severity Reaction Status Date / Time No Known Allergies Allergy Verified 08/26/21 21:33 Home Medications Medication Instructions Recorded Confirmed Type cholecalciferol (vitamin D3) 125 5,000 unit PO DAILY 09/07/18 08/26/21 History mcg (5,000 unit) tablet (Vitamin D3) magnesium oxide 400 mg PO BID 09/07/18 08/26/21 History metformin 500 mg tablet 500 mg PO BID 09/07/18 08/26/21 History alendronate 70 mg tablet 70 mg PO WK 08/26/21 08/26/21 History atenolol 25 mg tablet 12.5 mg PO DAILY 08/26/21 08/26/21 History atorvastatin 40 mg tablet 40 mg PO DAILY 08/26/21 08/26/21 History cyanocobalamin (vitamin B-12) 1,000 mcg PO DAILY 08/26/21 08/26/21 History 1,000 mcg tablet lisinopril 5 mg tablet 5 mg PO DAILY 08/26/21 08/26/21 History multivitamin 1 tab PO DAILY 08/26/21 08/26/21 History Patient History Medical History Anemia Blindness of right eye CKD (chronic kidney disease), stage III COVID-19 DM type 2 (diabetes mellitus, type 2) Dyslipidemia Hypertension Osteoporosis Paroxysmal ventricular tachycardia Syncope Surgical History H/O colonoscopy "2012- diverticulosis" H/O dilation and curettage H/O umbilical hernia repair History of cataract surgery Social History Smoking Status: Never smoker Hx Alcohol Use: No Hx Substance Use: No Preferred Language: [place] Communication Ability: Effective Property Staff Accountant Required: No Beliefs That Will Affect Care: None marital status: / Current Living Situation: Family Current Living Situation Comment: lives with ranjeet Cordova How many Children do You have: 1 Other Information That Helps Us Care for You: No Feels Safe at Home: Yes Safety Concerns: Feels Safe At This Time Assistive Devices: Glasses and Oxygen - Continuous Review of Systems Review of Systems: Unobtainable due to cognitive status Physical Exam Constitutional: well developed, well nourished and + ill appearing; no acute distress Respiratory: normal respiratory effort; no respiratory distress Auscultation: no crackles, no rales, no rhonchi and no wheezes Cardiovascular: Rate/Rhythm: regular rate and regular rhythm Heart Sounds: normal S1 and normal S2; no murmur Vessels: radial pulses present; no JVD and no carotid bruit Gastrointestinal (Abdomen): Inspection/Auscultation: abdomen normal to inspection and normal bowel sounds; abdomen not distended Percussion/Palpation: abdomen soft; abdomen nontender, no guarding and abdomen not rigid Neurologic: CN's II-XI intact bilaterally and moves all extremities; not confused Motor/Sensory: no tremor Results & Data ([facility]) Vital Signs (Past 12 Hours) Vital Signs Temp Pulse Pulse Resp BP BP Pulse Ox 08/30/21 07:58 66 08/30/21 07:57 08/30/21 07:39 36.6 C 84 22 138/68 96 08/30/21 03:41 37.0 C 75 18 147/71 H 97 08/30/21 00:13 36.8 C 75 16 137/94 94 Pulse Ox 08/30/21 07:58 08/30/21 07:57 96 08/30/21 07:39 08/30/21 03:41 08/30/21 00:13
[2021-08-30] MEDS ORDERED: SODIUM CHLORIDE 0.9% 1000ML 1,000 ML IV SCH (14:15)
--- NOTE | 2021-08-30 14:21 | Hospitalist Progress Note ---
Date of Service August 30, 2021 Assessment & Plan (1) Intertrochanteric fracture of left femur: (2) COVID-19: (3) Fall: (4) E. coli UTI: (5) PSVT (paroxysmal supraventricular tachycardia): Plan: 76-year-old lady with PMH of HTN, paroxysmal PT, HLD, DM2 on oral meds, chronic anemia [baseline around 10], blindness of right eye, osteoporosis and CKD presented 08/26 to our ED secondary to mechanical fall and hurting her left hip. Patient is being managed for the following: #. Supraventricular tachycardia #. History of such. SVTs with heart rate in 180s on 08/29 at 3:50 PM--> resolved 5:10 PM after dose of 5 mg metoprolol and 6 mg adenosine Follow-up electrolytes after 08/30 event fairly WNL, calcium gluconate replaced, follow-up EKG -->sinus rhythm, cardiology consulted Echo ordered, awaiting. Per cardiology, metoprolol 25 twice daily started 08/29 and home dose of atenolol stopped, held lisinopril 08/30 to allow for titration of beta-irma if necessary. Continue telemetry, patient in sinus rhythm currently. Maintain gentle hydration. #. Closed fracture of left hip Secondary to mechanical fall Admitting hip x-ray: Left femoral intertrochanteric fracture, no dislocation. Distal neurovascular status normal Orthopedics consulted: Open reduction and internal fixation of left displaced intertrochanteric hip fracture with a Synthes 235 mm x 11 mm trochanteric fixation nail with a 90 mm spiral blade and a 38 mm distal locking screw by Dr. Coffey on 08/27 SCDs for now, anticoagulation per orthopedic recommendation -aspirin 81 mg twice daily PT/OT Encouraged spirometry every hour while awake, patient not doing adequately per her. Communicated to the nursing staff and respiratory team that it is very important for her to do incentive spirometry every hour while awake. #. Constipation Patient has not moved bowel since after surgery Bowel sounds good on examination. Patient not eating enough food. Continue to monitor, bowel regimen, follow-up with KUB x-ray when appropriate Use laxatives. #. Acute blood loss anemia #. Chronic anemia Baseline hemoglobin around 10-11 Admitting hemoglobin dropped from 10.2 to 7.4 Secondary to hip fracture Status post 1 unit 08/27 prior to surgery. Status post another unit 08/29 evening. Maintain hemoglobin above 8, transfuse for hemoglobin less than 8. #. COVID-19 Patient denies any signs or symptoms suggestive of COVID-19 Admitting CXR negative for any acute finding Patient tested positive for Covid in the ED on 08/26 Patient symptomatic, on minimal oxygen likely postoperative requirement, continue to monitor, does not qualify for any medications for COVID-19. Continue incentive spirometry while awake, flutter valve #. Chronic medical conditions: HTN, HLD, DM, paroxysmal VT Continue with atenolol, atorvastatin, Hold lisinopril Hold Metformin. Patient on SSI insulin. Continue to monitor. #. Symptomatic pyuria #. E. coli UTI Follow-up urine culture, E. coli UTI pansensitive. Completed course of Rocephin on 08/30. DVT prophylaxisSCDs. Baby aspirin twice daily per orthopedics. DNR. Disposition: Likely need placement, pending evaluation. CM to assist with discharge planning. Patient's son Mr. Art Escobedo, can be reached at [phone]. Admission and Anticipated Discharge Date Admission Date: August 26, 2021 Subjective Patient was sitting up in bed, on 2 L nasal cannula oxygen, NAD, no acute events overnight per RN. Patient ate 25% of her breakfast and is drinking very little fluid per RN. Hence we will put her on gentle hydration. Patient looks better than yesterday and AOx3 but still continuously moaning likely dementia worsening. Patient denies any headache/dizziness/chills/chest pain/palpitation/other review of symptoms. Physical Exam Physical Exam: GENERAL: Alert and oriented x3. NAD, on 2 L. Can engage in talk but random moaning, likely dementia worsening. HEENT: No pallor, no icterus. Pupils equal, round and reactive to light. Oral mucosa moist. NECK: No JVD, no neck masses. HEART: S1 and S2 heard. Regular rate and rhythm. No murmur, no gallop. RESPIRATORY SYSTEM: Normal AP diameter. No accessory muscle use. No wheezing, no crackles. Decreased breath sounds. ABDOMEN: Soft, bowel sounds present, nontender, no distention. CENTRAL NERVOUS SYSTEM: No facial droop. Speech is clear and low volume. Obeys simple commands. Moves extremities. EXTREMITIES: No edema, no erythema seen. Distal neurovascular status WNL. Lateral Left hip with clean dressing without soakage. Results & Data Results & Data ([facility]) Vital Signs (Past 12 Hours) Vital Signs Temp Pulse Pulse Resp BP Pulse Ox Pulse Ox 08/30/21 11:58 36.8 C 75 21 148/82 H 89 L 08/30/21 07:58 66 08/30/21 07:57 96 08/30/21 07:39 36.6 C 84 22 138/68 96 08/30/21 03:41 37.0 C 75 18 147/71 H 97 (1) Fall Encounter type: initial encounter Qualified Code(s): W19.XXXA - Unspecified fall, initial encounter
[2021-08-30 15:49] LABS: Hematocrit (blood only) 27.2 % (37-47); Hemoglobin 9.3 g/dL (12.0-16.0)
[2021-08-31] MEDS: MoRPHine SULFATE 2 MG/ML CARP IV PRN ×2 (00:22→17:34)
[2021-08-31] MEDS: ACETAMINOPHEN 325 MG TAB PO PRN ×2 (01:15→12:48)
[2021-08-31 02:27] LABS: Appearance Urine Cloudy (Clear); Bacteria Urine Automated Negative (Negative); Bilirubin Urine Negative (Negative); Blood Urine 3+ (Negative); Color Urine Yellow; Glucose Urine UA Negative (Negative); Ketones Urine Negative (Negative); Leukocyte Esterase Urine Negative (Negative); Nitrite Urine Negative (Negative); Protein Urine 1+ (Negative); Specific Gravity Urine 1.017 (1.000-1.030); Urobilinogen Urine Negative (Negative)
[2021-08-31 02:55] LABS: Uric Acid Crystals Urine Present (None Prsent)
[2021-08-31 06:24] LABS: Hemoglobin 8.4 g/dL (12.0-16.0); Mean Corpuscular Hemoglobin 29.9 pg (25-34); Mean Corpuscular Hgb Conc 33.6 g/dL (32-36); Mean Platelet Volume 10.1 fL (7.4-10.4); Platelet Count 194 K/uL (130-400); RDW Coefficient of Variation 14.9 % (11.5-14.5); RDW Standard Deviation 48.8 fL (36.4-46.3); Red Blood Count 2.81 M/uL (4.2-5.4); White Blood Count 5.81 K/uL (4.8-10.8)
[2021-08-31 06:49] LABS: Calcium 7.5 mg/dl (8.5-10.1); Creatinine Clr Calc Pharmacy 42.2 ml/min; Est GFR (African American) 97.6 ml/min; Est GFR (Non-African American) 84.2 ml/min; Magnesium 1.8 mg/dl (1.8-2.4); Phosphorus 2.8 mg/dl (2.5-4.9); Potassium 3.7 mmol/L (3.5-5.1)
[2021-08-31] MEDS: ASPIRIN 81 MG ECTAB PO SCH (08:27)
[2021-08-31] MEDS: METOPROLOL TARTRATE 25 MG TAB PO SCH ×2 (08:30→21:26)
[2021-08-31] MEDS: CHOLECALCIFEROL 1,000 UNITS 25 MCG TAB PO SCH (08:31)
[2021-08-31] MEDS: DOCUSATE SODIUM 100 MG CAP PO SCH ×2 (08:31→21:27)
[2021-08-31] MEDS: MULTIVITAMIN TAB PO SCH (08:31)
[2021-08-31] MEDS: POLYETHYLENE (MIRALAX) 17 GM PACK PO SCH ×2 (08:32→12:29)
[2021-08-31] MEDS ORDERED: CALCIUM GLUCONATE 10% 1,000 MG in SODIUM CHLORIDE 0.9% 50 ML IV ONE (09:00)
[2021-08-31] MEDS: INSULIN ASPART 100 UNITS/ML 3 ML PEN SC SCH ×4 (10:08→21:20)
[2021-08-31] MEDS: MAGNESIUM OXIDE 400 MG TAB PO SCH ×2 (10:09→21:27)
[2021-08-31] MEDS: POT PHOSPHATE MONOBASIC W/ SOD TAB PO SCH ×4 (10:10→21:25)
--- NOTE | 2021-08-31 11:44 | Hospitalist Progress Note ---
Date of Service August 31, 2021 Assessment & Plan (1) Intertrochanteric fracture of left femur: (2) COVID-19: (3) Fall: (4) E. coli UTI: (5) PSVT (paroxysmal supraventricular tachycardia): Plan: 76-year-old lady with PMH of HTN, paroxysmal PT, HLD, DM2 on oral meds, chronic anemia [baseline around 10], blindness of right eye, osteoporosis and CKD presented 08/26 to our ED secondary to mechanical fall and hurting her left hip. Patient is being managed for the following: #. Supraventricular tachycardia #. History of such. #. Electrolytes abnormality SVTs with heart rate in 180s on 08/29 at 3:50 PM--> resolved 5:10 PM after dose of 5 mg metoprolol and 6 mg adenosine Follow-up electrolytes after 08/30 event fairly WNL, calcium gluconate replaced, follow-up EKG -->sinus rhythm, cardiology consulted Echo ordered, awaiting. Per cardiology, metoprolol 25 twice daily started 08/29 and home dose of atenolol stopped, held lisinopril 08/30 to allow for titration of beta-irma if necessary. Continue telemetry, patient in sinus rhythm currently. Maintain gentle hydration. Await further recommendation from cardiology. Monitor electrolytes and replace as appropriate. #. Mild hyponatremia c/w monitoring. stable. #. Closed fracture of left hip Secondary to mechanical fall Admitting hip x-ray: Left femoral intertrochanteric fracture, no dislocation. Distal neurovascular status normal Orthopedics consulted: Open reduction and internal fixation of left displaced intertrochanteric hip fracture with a Synthes 235 mm x 11 mm trochanteric fixation nail with a 90 mm spiral blade and a 38 mm distal locking screw by Dr. Coffey on 08/27 SCDs and anticoagulation per orthopedic recommendation -aspirin 81 mg twice daily PT/OT with orthopedics recommendation. Encouraged spirometry every hour while awake, patient still needs support and encouragement for doing spirometry. Communicated to the nursing staff and respiratory team that it is very important for her to do incentive spirometry every hour while awake. #. Constipation Patient has not moved bowel since after surgery Bowel sounds good on examination. Patient not eating enough food --> seems to have improved a little bit. Continue to monitor, bowel regimen, follow-up with KUB x-ray when appropriate Use laxatives. #. Acute blood loss anemia #. Chronic anemia Baseline hemoglobin around 10-11 Admitting hemoglobin dropped from 10.2 to 7.4 Secondary to hip fracture Status post 1 unit 08/27 prior to surgery. Status post another unit 08/29 evening. f/u afternoon Hb. Maintain hemoglobin above 8, transfuse for hemoglobin less than 8. #. COVID-19 Patient denies any signs or symptoms suggestive of COVID-19 Admitting CXR negative for any acute finding Patient tested positive for Covid in the ED on 08/26 Patient asymptomatic, on minimal oxygen likely postoperative requirement, con tinue to monitor, does not qualify for any medications for COVID-19. Continue incentive spirometry while awake, flutter valve #. Chronic medical conditions: HTN, HLD, DM, paroxysmal VT Continue with atorvastatin, Hold lisinopril Hold Metformin. Switched atenolol to metoprolol. Patient on SSI insulin. Continue to monitor. #. Symptomatic pyuria #. E. coli UTI Follow-up urine culture, E. coli UTI pansensitive. Completed course of Rocephin on 08/30. DVT prophylaxisSCDs. Baby aspirin twice daily per orthopedics. DNR. Disposition: Continue PT/OT with orthopedics recommendation while inpatient. Likely need placement, pending evaluation. CM to assist with discharge planning. Patient's son Mr. Art Escobedo, can be reached at [phone]. Admission and Anticipated Discharge Date Admission Date: August 26, 2021 Subjective Patient was sitting up in bed, on 2 L nasal cannula oxygen, NAD, no acute events overnight per Pt. patient is AO x3. Patient reports eating good. Patient looks better than yesterday and AOx3 but her random moaning seems to improve today. Patient denies any headache/dizziness/chills/chest pain/palpitation/other review of symptoms. Physical Exam Physical Exam: GENERAL: Alert and oriented x3. NAD, on 2 L. Can engage in talk and random moaning, likely dementia worsening - has gotten better today. HEENT: No pallor, no icterus. Pupils equal, round and reactive to light. Oral mucosa moist. NECK: No JVD, no neck masses. HEART: S1 and S2 heard. Regular rate and rhythm. No murmur, no gallop. RESPIRATORY SYSTEM: Normal AP diameter. No accessory muscle use. No wheezing, no crackles. Decreased breath sounds. ABDOMEN: Soft, bowel sounds present, nontender, no distention. CENTRAL NERVOUS SYSTEM: No facial droop. Speech is clear and low volume. Obeys simple commands. Moves extremities. EXTREMITIES: No edema, no erythema seen. Distal neurovascular status WNL. Lateral Left hip with clean dressing without soakage. Results & Data Results & Data ([facility]) Vital Signs (Past 12 Hours) Vital Signs Temp Pulse Resp BP BP Pulse Ox 08/31/21 11:37 36.8 C 73 18 149/67 H 98 08/31/21 07:16 37.4 C 72 18 144/65 H 96 08/31/21 02:41 37.0 C 82 16 119/57 L 99 08/31/21 00:17 37.8 C H 86 20 158/80 H 92 (1) Fall Encounter type: initial encounter Qualified Code(s): W19.XXXA - Unspecified fall, initial encounter
[2021-08-31] MEDS ORDERED: D5W AND NSS 1,000 ML IV SCH (11:45)
--- NOTE | 2021-08-31 12:00 | Cardiology Progress Note ---
Date of Service August 31, 2021 Assessment & Plan (1) PSVT (paroxysmal supraventricular tachycardia): (2) COVID-19: (3) E. coli UTI: (4) Intertrochanteric fracture of left femur: (5) Anemia: Plan: Continue metoprolol tartrate 25 mg twice daily. Monitor telemetry. Replace electrolytes as indicated. Recommend adenosine 6 mg IV push with recurrent supraventricular tachycardia. Monitor blood pressure, hold lisinopril at this time to allow for titration of beta-irma if necessary. Supportive care/pain management/antibiotics as per internal medicine and orthopedic surgery. Admission and Anticipated Discharge Date Admission Date: August 26, 2021 Subjective Patient seen and examined the bedside. Poor historian due to underlying dementia. Telemetry reveals sinus rhythm. No recurrent paroxysmal supraventricular tachycardia. Patient offers no complaints. Review of Systems 2 Review of Systems: Unobtainable due to cognitive status Physical Exam Constitutional: well developed, well nourished and + ill appearing; no acute distress Respiratory: normal respiratory effort; no respiratory distress Auscultation: no crackles, no rales, no rhonchi and no wheezes Cardiovascular: Rate/Rhythm: regular rate and regular rhythm Heart Sounds: normal S1 and normal S2; no murmur Vessels: radial pulses present; no JVD and no carotid bruit Gastrointestinal (Abdomen): Inspection/Auscultation: abdomen normal to inspection and normal bowel sounds; abdomen not distended Percussion/Palpation: abdomen soft; abdomen nontender, no guarding and abdomen not rigid Neurologic: CN's II-XI intact bilaterally and moves all extremities; not confused Motor/Sensory: no tremor Results & Data ([facility]) Vital Signs (Past 12 Hours) Vital Signs Temp Pulse Resp BP BP Pulse Ox 08/31/21 11:37 36.8 C 73 18 149/67 H 98 08/31/21 07:16 37.4 C 72 18 144/65 H 96 08/31/21 02:41 37.0 C 82 16 119/57 L 99 08/31/21 00:17 37.8 C H 86 20 158/80 H 92
[2021-08-31 15:11] LABS: Hematocrit (blood only) 22.7 % (37-47); Hemoglobin 7.8 g/dL (12.0-16.0)
[2021-08-31] MEDS ORDERED: SODIUM CHLORIDE 0.9% 250 ML IV PRN (15:34)
[2021-08-31] MEDS ORDERED: diphenhydrAMINE Capsule 25 MG CAP PO ONE (15:34)
--- NOTE | 2021-08-31 18:34 | XRay Report ---
XR hip DK 2v w pelvis CLINICAL HISTORY: f/u; pt s/p left hip repair; losing blood. TECHNIQUE: 2 views of the bilateral hips and single frontal view of the pelvis were obtained. Comparison: None available at the time of this dictation. FINDINGS: Patient is status post placement of left intramedullary nail. Severe bilateral degenerative changes i n the hip joints are seen. No evidence of acute fracture is seen. Vascular calcifications are seen. T he bones are anatomically aligned. The bony mineralization is normal. IMPRESSION: Status post left hip repair. Degenerative changes without evidence of acute abnormality. ACT 112: Negative or not required by law. Electronically signed by: Avery Jefferson M.D. 08/31/2021 6:33 PM
[2021-09-01] MEDS: MoRPHine SULFATE 2 MG/ML CARP IV PRN ×2 (00:17→08:08)
[2021-09-01 07:07] LABS: Hematocrit (blood only) 29.3 % (37-47); Mean Corpuscular Hemoglobin 29.1 pg (25-34); Mean Corpuscular Hgb Conc 34.1 g/dL (32-36); Mean Corpuscular Volume 85.2 fL (80-100); Mean Platelet Volume 10.8 fL (7.4-10.4); Platelet Count 154 K/uL (130-400); RDW Coefficient of Variation 14.9 % (11.5-14.5); RDW Standard Deviation 46.8 fL (36.4-46.3); Red Blood Count 3.44 M/uL (4.2-5.4); White Blood Count 4.87 K/uL (4.8-10.8)
[2021-09-01 07:27] LABS: BUN Creatinine Ratio 32.5 (10-20); Calcium 7.3 mg/dl (8.5-10.1); Creatinine Clr Calc Pharmacy 51.4 ml/min; Est GFR (African American) 104.1 ml/min; Est GFR (Non-African American) 89.8 ml/min; Magnesium 1.5 mg/dl (1.8-2.4); Potassium 3.8 mmol/L (3.5-5.1)
[2021-09-01] MEDS: MAGNESIUM OXIDE 400 MG TAB PO SCH ×2 (08:09→21:42)
[2021-09-01] MEDS: DOCUSATE SODIUM 100 MG CAP PO SCH (08:09)
[2021-09-01] MEDS: METOPROLOL TARTRATE 25 MG TAB PO SCH ×2 (08:09→21:42)
[2021-09-01] MEDS: CHOLECALCIFEROL 1,000 UNITS 25 MCG TAB PO SCH (08:09)
[2021-09-01] MEDS: MULTIVITAMIN TAB PO SCH (08:09)
[2021-09-01] MEDS: POT PHOSPHATE MONOBASIC W/ SOD TAB PO SCH ×4 (08:10→21:42)
[2021-09-01] MEDS: POLYETHYLENE (MIRALAX) 17 GM PACK PO SCH (08:11)
[2021-09-01] MEDS ORDERED: CALCIUM GLUCONATE 10% 1,000 MG in SODIUM CHLORIDE 0.9% 50 ML IV ONE (08:45)
[2021-09-01] MEDS: INSULIN ASPART 100 UNITS/ML 3 ML PEN SC SCH ×4 (09:11→21:40)
[2021-09-01] MEDS: MAGNESIUM SULFATE / D5W 1 GM/100 ML BAG IV SCH ×2 (09:19→11:28)
--- NOTE | 2021-09-01 13:45 | Cardiology Progress Note ---
Date of Service September 01, 2021 Assessment & Plan (1) PSVT (paroxysmal supraventricular tachycardia): (2) Hypertension: (3) COVID-19: (4) E. coli UTI: (5) Intertrochanteric fracture of left femur: (6) Anemia: Plan: Continue metoprolol tartrate 25 mg twice daily. Monitor telemetry. Replace electrolytes as indicated. Recommend adenosine 6 mg IV push with recurrent supraventricular tachycardia. Blood pressure remains elevated. Recommend amlodipine 2.5 mg daily. I would not restart lisinopril at this time due to persistent hyponatremia. Supportive care/pain management/antibiotics as per internal medicine and orthopedic surgery. Admission and Anticipated Discharge Date Admission Date: August 26, 2021 Subjective Patient seen and examined the bedside. Denies chest pain or shortness of breath. Hip discomfort uncontrolled. No recurrent SVT on telemetry. Blood pressure elevated. Review of Systems Review of Systems: Unobtainable due to cognitive status Physical Exam Constitutional: well developed, well nourished and + ill appearing; no acute distress Respiratory: normal respiratory effort; no respiratory distress Auscultation: no crackles, no rales, no rhonchi and no wheezes Cardiovascular: Rate/Rhythm: regular rate and regular rhythm Heart Sounds: normal S1 and normal S2; no murmur Vessels: radial pulses present; no JVD and no carotid bruit Gastrointestinal (Abdomen): Inspection/Auscultation: abdomen normal to inspection and normal bowel sounds; abdomen not distended Percussion/Palpation: abdomen soft; abdomen nontender, no guarding and abdomen not rigid Neurologic: CN's II-XI intact bilaterally and moves all extremities; not confused Motor/Sensory: no tremor Results & Data ([facility]) Vital Signs (Past 12 Hours) Vital Signs Temp Pulse Pulse Resp BP Pulse Ox Pulse Ox 09/01/21 12:24 36.7 C 85 22 146/117 H 97 09/01/21 11:00 95 09/01/21 10:07 151/76 H 09/01/21 08:10 37.0 C 88 32 H 170/143 H 98 09/01/21 08:00 99 H 09/01/21 07:00 95 09/01/21 03:26 37.0 C 84 24 152/88 H 97
--- NOTE | 2021-09-01 15:43 | Hospitalist Progress Note ---
Date of Service September 01, 2021 Assessment & Plan (1) Intertrochanteric fracture of left femur: (2) COVID-19: (3) Fall: (4) E. coli UTI: (5) PSVT (paroxysmal supraventricular tachycardia): Plan: 76-year-old lady with PMH of HTN, paroxysmal PT, HLD, DM2 on oral meds, chronic anemia [baseline around 10], blindness of right eye, osteoporosis and CKD presented 08/26 to our ED secondary to mechanical fall and hurting her left hip. Patient is being managed for the following: #. Supraventricular tachycardia #. History of such. #. Electrolytes abnormality #. HTN SVTs with heart rate in 180s on 08/29 at 3:50 PM--> resolved 5:10 PM after dose of 5 mg metoprolol and 6 mg adenosine Follow-up electrolytes after 08/30 event fairly WNL, calcium gluconate replaced, follow-up EKG -->sinus rhythm, cardiology consulted Echo ordered, awaiting. Per cardiology, metoprolol 25 twice daily started 08/29 and home dose of atenolol stopped, held lisinopril 08/30 --> 09/01 Stop lisinopril and start amlodipine 2.5 mg daily instead Continue telemetry, patient in sinus rhythm currently. Maintain gentle hydration as appropriate. Monitor electrolytes and replace as appropriate. #. Mild hyponatremia c/w monitoring. stable. Stop lisinopril and start amlodipine 2.5 mg daily. #. Closed fracture of left hip Secondary to mechanical fall Admitting hip x-ray: Left femoral intertrochanteric fracture, no dislocation. Distal neurovascular status normal Orthopedics consulted: Open reduction and internal fixation of left displaced intertrochanteric hip fracture with a Synthes 235 mm x 11 mm trochanteric fixation nail with a 90 mm spiral blade and a 38 mm distal locking screw by Dr. Coffey on 08/27 SCDs and anticoagulation per orthopedic recommendation -aspirin 81 mg twice daily PT/OT with orthopedics recommendation. Encouraged spirometry every hour while awake, patient still needs support and encouragement for doing spirometry. Communicated to the nursing staff and respiratory team that it is very important for her to do incentive spirometry every hour while awake. Will increase pain meds, resume aspirin. #. Constipation Patient has not moved bowel since after surgery Bowel sounds good on examination. Patient not eating enough food --> seems to have improved a little bit. Continue to monitor, bowel regimen Use laxatives. #. Acute blood loss anemia #. Chronic anemia Baseline hemoglobin around 1011 Admitting hemoglobin dropped from 10.2 to 7.4 Secondary to hip fracture Status post 1 unit 08/27 prior to surgery. Status post another unit 08/29 evening. f/u daily Hb and as needed. Maintain hemoglobin above 8, transfuse for hemoglobin less than 8. #. COVID-19 Patient denies any signs or symptoms suggestive of COVID-19 Admitting CXR negative for any acute finding Patient tested positive for Covid in the ED on 08/26 Patient asymptomatic, on minimal oxygen likely postoperative requirement, continue to monitor, does not qualify for any medications for COVID-19. Continue incentive spirometry while awake, flutter valve #. Chronic medical conditions: HTN, HLD, DM, paroxysmal VT Continue with atorvastatin, Switched lisinopril to amlodipine. Hold Metformin. Switched atenolol to metoprolol. Patient on SSI insulin. Continue to monitor. #. Symptomatic pyuria #. E. coli UTI Follow-up urine culture, E. coli UTI pansensitive. Completed course of Rocephin on 08/30. DVT prophylaxisSCDs. Baby aspirin twice daily per orthopedics. DNR. Disposition: Continue PT/OT with orthopedics recommendation while inpatient. Likely need placement, pending evaluation. CM to assist with discharge planning. Patient's son Mr. Art Escobedo, can be reached at [phone]. Admission and Anticipated Discharge Date Admission Date: August 26, 2021 Subjective Patient semiupright in bed, on 2 L nasal cannula oxygen, reporting hip pain t emory, will increase her pain medication frequency, no new acute events overnight, no SVTs. Per RN, patient is eating better, now 75% of her meal. She is AOx3, still moaning all the time but denies any discomfort. Patient denies headache/chills/fever/shortness of breath/chest pain/other review of symptoms. Per RN she is more interactive today. Physical Exam Physical Exam: GENERAL: Alert and oriented x3. NAD, on 2 L. Can engage in talk and random moaning, likely dementia worsening - has been getting li'l better. HEENT: No pallor, no icterus. Pupils equal, round and reactive to light. Oral mucosa moist. NECK: No JVD, no neck masses. HEART: S1 and S2 heard. Regular rate and rhythm. No murmur, no gallop. RESPIRATORY SYSTEM: Normal AP diameter. No accessory muscle use. No wheezing, no crackles. Decreased breath sounds. ABDOMEN: Soft, bowel sounds present, nontender, no distention. CENTRAL NERVOUS SYSTEM: No facial droop. Speech is clear and low volume. Obeys simple commands. Moves extremities. EXTREMITIES: No edema, no erythema seen. Distal neurovascular status WNL. Lateral Left hip with clean dressing without soakage. Results & Data Results & Data ([facility]) Vital Signs (Past 12 Hours) Vital Signs Temp Pulse Pulse Resp BP Pulse Ox Pulse Ox 09/01/21 14:17 147/84 H 09/01/21 12:24 36.7 C 85 22 146/117 H 97 09/01/21 11:00 95 09/01/21 10:07 151/76 H 09/01/21 08:10 37.0 C 88 32 H 170/143 H 98 09/01/21 08:00 99 H 09/01/21 07:00 95 (1) Fall Encounter type: initial encounter Qualified Code(s): W19.XXXA - Unspecified fall, initial encounter
[2021-09-01] MEDS: amLODIPine BESYLATE 5 MG TAB PO SCH (15:50)
[2021-09-01] MEDS: oxyCODONE/ACETAMINOPHEN 5mg/325mg TAB PO PRN ×2 (18:06→22:36)
[2021-09-01] MEDS: ASPIRIN 81 MG ECTAB PO SCH (21:43)
[2021-09-02] MEDS: oxyCODONE/ACETAMINOPHEN 5mg/325mg TAB PO PRN ×2 (06:39→13:19)
[2021-09-02 08:07] LABS: Hemoglobin 11.1 g/dL (12.0-16.0); Mean Corpuscular Hemoglobin 29.1 pg (25-34); Mean Corpuscular Hgb Conc 33.6 g/dL (32-36); Mean Corpuscular Volume 86.6 fL (80-100); Mean Platelet Volume 9.7 fL (7.4-10.4); Platelet Count 240 K/uL (130-400); RDW Coefficient of Variation 14.9 % (11.5-14.5); RDW Standard Deviation 47.1 fL (36.4-46.3); Red Blood Count 3.81 M/uL (4.2-5.4); White Blood Count 5.22 K/uL (4.8-10.8)
[2021-09-02 08:24] LABS: Calcium 7.6 mg/dl (8.5-10.1); Creatinine Clr Calc Pharmacy 52.8 ml/min; Est GFR (African American) 101.7 ml/min; Est GFR (Non-African American) 87.8 ml/min
[2021-09-02 08:25] LABS: BUN Creatinine Ratio 31.7 (10-20); Magnesium 2.1 mg/dl (1.8-2.4); Phosphorus 4.2 mg/dl (2.5-4.9); Potassium 3.8 mmol/L (3.5-5.1)
[2021-09-02] MEDS: INSULIN ASPART 100 UNITS/ML 3 ML PEN SC SCH ×4 (08:50→20:45)
[2021-09-02] MEDS: POLYETHYLENE (MIRALAX) 17 GM PACK PO SCH (08:51)
[2021-09-02] MEDS: METOPROLOL TARTRATE 25 MG TAB PO SCH ×2 (08:51→20:34)
[2021-09-02] MEDS: MULTIVITAMIN TAB PO SCH (08:52)
[2021-09-02] MEDS: ASPIRIN 81 MG ECTAB PO SCH ×2 (08:52→20:34)
[2021-09-02] MEDS: amLODIPine BESYLATE 5 MG TAB PO SCH (08:52)
[2021-09-02] MEDS: CHOLECALCIFEROL 1,000 UNITS 25 MCG TAB PO SCH (08:52)
--- NOTE | 2021-09-02 14:34 | Hospitalist Progress Note ---
Date of Service September 02, 2021 Assessment & Plan (1) Intertrochanteric fracture of left femur: Plan: Following a mechanical fall at home Recent hospitalization with left knee pain, status post injection and physical therapist recommended rehab placement The patient was discharged home with home health nurse and home PT after discussion with the son and as per casey saw operator evaluation. Came back within a few days with a mechanical fall and intertrochanteric frac ture of left femur #. Closed fracture of left hip Secondary to mechanical fall Admitting hip x-ray: Left femoral intertrochanteric fracture, no dislocation. Distal neurovascular status normal Orthopedics consulted: Open reduction and internal fixation of left displaced intertrochanteric hip fracture with a Synthes 235 mm x 11 mm trochanteric fixation nail with a 90 mm spiral blade and a 38 mm distal locking screw by Dr. Coffey on 08/27 SCDs and anticoagulation per orthopedic recommendation -aspirin 81 mg twice daily PT/OT with orthopedics recommendation. Still complains a lot of pain in the left hip Awaiting placement (2) COVID-19: Plan: #. [id number] being vaccinated Patient denies any signs or symptoms suggestive of COVID-19 Admitting CXR negative for any acute finding Patient tested positive for Covid in the ED on 08/26 Patient asymptomatic, on minimal oxygen likely postoperative requirement, continue to monitor, does not qualify for any medications for COVID-19. Continue incentive spirometry while awake, flutter valve Remains asymptomatic of COVID-19 infection (3) Fall: Plan: Status post mechanical fall (4) E. coli UTI: (5) PSVT (paroxysmal supraventricular tachycardia): Plan: #. Supraventricular tachycardia #. History of such. #. Electrolytes abnormality #. HTN SVTs with heart rate in 180s on 08/29 at 3:50 PM--> resolved 5:10 PM after dose of 5 mg metoprolol and 6 mg adenosine Follow-up electrolytes after 08/30 event fairly WNL, calcium gluconate replaced, follow-up EKG -->sinus rhythm, cardiology consulted Echo ordered, awaiting. Per cardiology, metoprolol 25 twice daily started 08/29 and home dose of atenolol stopped, held lisinopril 08/30 --> 09/01 Stop lisinopril and start amlodipine 2.5 mg daily instead Continue telemetry, patient in sinus rhythm currently. Maintain gentle hydration as appropriate. Monitor electrolytes and replace as appropriate. Plan: 76-year-old lady with PMH of HTN, paroxysmal PT, HLD, DM2 on oral meds, chronic anemia [baseline around 10], blindness of right eye, osteoporosis and CKD presented 08/26 to our ED secondary to mechanical fall and hurting her left hip. Patient is being managed for the following: #. Mild hyponatremia C/w monitoring. stable. Stop lisinopril and start amlodipine 2.5 mg daily. Encouraged spirometry every hour while awake, patient still needs support and encouragement for doing spirometry. Communicated to the nursing staff and respiratory team that it is very important for her to do incentive spirometry every hour while awake. Will increase pain meds, resume aspirin. #. Constipation Patient has not moved bowel since after surgery Bowel sounds good on examination. Patient not eating enough food --> seems to have improved a little bit. Continue to monitor, bowel regimen Use laxatives. #. Acute blood loss anemia #. Chronic anemia Baseline hemoglobin around 10- Admitting hemoglobin dropped from 10.2 to 7.4 Secondary to hip fracture Status post 1 unit 08/27 prior to surgery. Status post another unit 08/29 evening. f/u daily Hb and as needed. Maintain hemoglobin above 8, transfuse for hemoglobin less than 8. #. Chronic medical conditions: HTN, HLD, DM, paroxysmal VT Continue with atorvastatin, Switched lisinopril to amlodipine. Hold Metformin. Switched atenolol to metoprolol. Patient on SSI insulin. Continue to monitor. #. Symptomatic pyuria #. E. coli UTI Follow-up urine culture, E. coli UTI pansensitive. Completed course of Rocephin on 08/30. DVT prophylaxisSCDs. Baby aspirin twice daily per orthopedics. DNR. Disposition: Continue PT/OT with orthopedics recommendation while inpatient. Likely need placement, pending evaluation. CM to assist with discharge planning. Patient's son Mr. Art Escobedo, can be reached at [phone]. Admission and Anticipated Discharge Date Admission Date: August 26, 2021 Subjective 09/02/2021 The patient was seen and examined in telemetry unit and in the Covid room She has been moaning most of the time even with touching the left lower extremity mainly Denies any respiratory symptoms of cough, shortness of breath or wheezing Review of Systems Review of Systems: All systems reviewed and are unremarkable except as noted below Musculoskeletal: Pain in the left hip and pain even touching the left lower extremity Physical Exam Physical Exam: Lying in bed with constant moaning secondary to pain in the left hip joint Constitutional: well developed, well nourished, + ill appearing and average body habitus Eyes: PERRL, conjunctivae normal, anicteric sclerae ENMT: external ear and nose normal, oropharynx normal Neck: trachea midline, no thyromegaly Respiratory: no respiratory distress and no cough Auscultation: + diminished lung sounds; no crackles and no wheezes Cardiovascular: Rate/Rhythm: regular rate and regular rhythm; not tachycardic Heart Sounds: normal S1 and normal S2; no murmur Extremities: + edema (Trace edema bilaterally) Gastrointestinal (Abdomen): Inspection/Auscultation: normal bowel sounds; abdomen not distended Percussion/Palpation: abdomen soft; abdomen nontender Musculoskeletal: Pain involving any movement of the left lower extremity especially at the hip joint Neurologic: Alert and awake. Moans constantly Lymphatic: no cervical or axillary lymphadenopathy Results & Data Results & Data ([facility]) Vital Signs (Past 12 Hours) Vital Signs Temp Pulse Pulse Pulse Resp BP BP 09/02/21 11:38 36.4 C L 79 18 122/74 09/02/21 11:00 09/02/21 08:00 72 09/02/21 07:48 36.6 C 72 19 145/75 H 09/02/21 07:00 09/02/21 03:53 36.5 C 72 19 133/66 Pulse Ox Pulse Ox 09/02/21 11:38 100 09/02/21 11:00 95 09/02/21 08:00 09/02/21 07:48 99 09/02/21 07:00 99 09/02/21 03:53 97 Laboratory Results Short CBC 09/02/21 Range/Units 07:14 WBC 5.22 (4.8-10.8) K/uL Hgb 11.1 L (12.0-16.0) g/dL Hct 33.0 L (37-47) % Plt Count 240 D (130-400) K/uL BMP 09/02/21 07:14 Sodium 132 L Potassium 3.8 Chloride 99 Carbon Dioxide 22 BUN 19 H Creatinine 0.59 L Glucose 86 Calcium 7.6 L Medications Administered Current Inpatient Medications Acetaminophen (Acetaminophen 325 Mg Tab) 325 mg PO Q6H PRN PRN Reason: Mild Pain Stop: 09/30/21 00:46 Last Admin: 08/31/21 12:48 Dose: 325 mg Documented by: Amlodipine Besylate (Amlodipine Besylate 5 Mg Tab) 2.5 mg PO QAM [facility] Stop: 10/01/21 13:59 Last Admin: 09/02/21 08:52 Dose: 2.5 mg Documented by: Aspirin (Aspirin 81 Mg Ectab) 81 mg PO BID [facility] Stop: 09/27/21 20:59 Last Admin: 09/02/21 08:52 Dose: 81 mg Documented by: Atenolol (Atenolol 25 Mg Tablet) 12.5 mg PO DAILY [facility] Stop: 09/26/21 08:59 Last Admin: 08/29/21 08:47 Dose: 12.5 mg Documented by: Bisacodyl (Bisacodyl 10 Mg Supp) 10 mg TX DAILY PRN PRN Reason: Constipation Stop: 09/25/21 23:12 Dextrose (Dextrose 50% 50 Ml Syringe) 25 - 50 ml IV UD PRN; Protocol PRN Reason: Hypoglycemia Protocol Stop: 09/25/21 23:12 Glucagon (Glucagon For Inj 1 Mg Vial) 1 mg SQ UD PRN; Protocol PRN Reason: Hypoglycemia Protocol Stop: 09/25/21 23:12 Glucose (Glucose 10 Tabs/Tube) 4 - 8 tabs PO UD PRN; Protocol PRN Reason: Hypoglycemia Protocol Stop: 09/25/21 23:12 Glucose (Glucose 40% Gel 15 Gm Tube) 15 - 30 gm PO UD PRN; Protocol PRN Reason: Hypoglycemia Protocol Stop: 09/25/21 23:12 Promethazine HCl 6.25 mg/ (Sodium Chloride) 50.25 mls @ 201 mls/hr IV Q6H PRN PRN Reason: Nausea And Vomiting Stop: 09/25/21 23:12 Insulin Aspart (Insulin Aspart 100 Units/Ml 3 Ml Pen) 0 units SC ACHS [facility] Stop: 09/25/21 23:29 Last Admin: 09/02/21 12:59 Dose: 2 units Documented by: Metoprolol Tartrate (Metoprolol Tartrate 25 Mg Tab) 25 mg PO BID [facility] Stop: 09/28/21 17:24 Last Admin: 09/02/21 08:51 Dose: 25 mg Documented by: Miscellaneous (Carbohydrates For Hypoglycemia ) 15 - 30 gm PO UD PRN PRN Reason: Hypoglycemia Protocol Stop: 09/25/21 23:12 Last Admin: 08/31/21 08:20 Dose: 15 gm Documented by: Morphine Sulfate (Morphine Sulfate 2 Mg/Ml Carp) 2 mg IV Q6H PRN PRN Reason: Pain Stop: 09/12/21 17:33 Last Admin: 09/01/21 08:08 Dose: 2 mg Documented by: Multivitamins (Multivitamin Tab) 1 tab PO DAILY PAUL Stop: 09/26/21 08:59 Last Admin: 09/02/21 08:52 Dose: 1 tab Documented by: Naloxone HCl (Naloxone Hcl 0.4 Mg/1 Ml Vial/Carp) 0.1 mg IV UD PRN PRN Reason: Opiate Overdose Stop: 09/25/21 23:12 Naloxone HCl (Naloxone Hcl 0.4 Mg/1 Ml Vial/Carp) 0.1 mg IV Q5M PRN PRN Reason: Oversedation/Resp depression Stop: 09/26/21 20:43 Oxycodone/Acetaminophen (Oxycodone/Acetaminophen 5mg/325mg Tab) 1 tab PO Q4H PRN PRN Reason: Pain Stop: 09/15/21 15:34 Last Admin: 09/02/21 13:19 Dose: 1 tab Documented by: Polyethylene Glycol (Polyethylene (Miralax) 17 Gm Pack) 17 gm PO DAILY PAUL Stop: 09/04/21 09:01 Last Admin: 09/02/21 08:51 Dose: 17 gm Documented by: Vitamin D (Cholecalciferol 1,000 Units 25 Mcg Tab) 5,000 units PO DAILY PAUL Stop: 09/26/21 08:59 Last Admin: 09/02/21 08:52 Dose: 5,000 units Documented by: (1) Fall Encounter type: initial encounter Qualified Code(s): W19.XXXA - Unspecified fall, initial encounter
--- NOTE | 2021-09-02 15:29 | Cardiology Progress Note ---
Date of Service September 02, 2021 Assessment & Plan (1) PSVT (paroxysmal supraventricular tachycardia): (2) Hypertension: (3) COVID-19: (4) E. coli UTI: (5) Intertrochanteric fracture of left femur: (6) Anemia: Plan: Continue metoprolol tartrate 25 mg twice daily. Monitor telemetry. Replace electrolytes as indicated. Recommend adenosine 6 mg IV push with recurrent supraventricular tachycardia. Blood pressure improved. Continue low-dose amlodipine, 2.5 mg daily. Hold lisinopril at this time due to persistent hyponatremia. Supportive care/pain management/antibiotics as per internal medicine and orthopedic surgery. Admission and Anticipated Discharge Date Admission Date: August 26, 2021 Subjective Patient seen and examined the bedside. More alert today. Pain controlled. Denies chest pain or shortness of breath. No recurrent SVT on telemetry. Review of Systems Review of Systems: Unobtainable due to cognitive status Physical Exam Constitutional: well developed, well nourished and + ill appearing; no acute distress Respiratory: normal respiratory effort; no respiratory distress Auscultation: no crackles, no rales, no rhonchi and no wheezes Cardiovascular: Rate/Rhythm: regular rate and regular rhythm Heart Sounds: normal S1 and normal S2; no murmur Vessels: radial pulses present; no JVD and no carotid bruit Gastrointestinal (Abdomen): Inspection/Auscultation: abdomen normal to inspection and normal bowel sounds; abdomen not distended Percussion/Palpation: abdomen soft; abdomen nontender, no guarding and abdomen not rigid Neurologic: CN's II-XI intact bilaterally and moves all extremities; not confused Motor/Sensory: no tremor Results & Data ([facility]) Vital Signs (Past 12 Hours) Vital Signs Temp Pulse Pulse Pulse Resp BP BP 09/02/21 11:38 36.4 C L 79 18 122/74 09/02/21 11:00 09/02/21 08:00 72 09/02/21 07:48 36.6 C 72 19 145/75 H 09/02/21 07:00 09/02/21 03:53 36.5 C 72 19 133/66 Pulse Ox Pulse Ox 09/02/21 11:38 100 09/02/21 11:00 95 09/02/21 08:00 09/02/21 07:48 99 09/02/21 07:00 99 11/10/21 03:53 97
[2021-09-03] MEDS: oxyCODONE/ACETAMINOPHEN 5mg/325mg TAB PO PRN (08:33)
[2021-09-03] MEDS: ASPIRIN 81 MG ECTAB PO SCH ×2 (08:33→19:52)
[2021-09-03] MEDS: amLODIPine BESYLATE 5 MG TAB PO SCH (08:34)
[2021-09-03] MEDS: MULTIVITAMIN TAB PO SCH (08:34)
[2021-09-03] MEDS: CHOLECALCIFEROL 1,000 UNITS 25 MCG TAB PO SCH (08:34)
[2021-09-03] MEDS: METOPROLOL TARTRATE 25 MG TAB PO SCH ×2 (08:34→19:52)
[2021-09-03] MEDS: POLYETHYLENE (MIRALAX) 17 GM PACK PO SCH (08:35)
[2021-09-03] MEDS: INSULIN ASPART 100 UNITS/ML 3 ML PEN SC SCH ×4 (10:07→21:02)
--- NOTE | 2021-09-03 17:17 | Hospitalist Progress Note ---
Date of Service September 03, 2021 Assessment & Plan (1) Intertrochanteric fracture of left femur: Plan: Following a mechanical fall at home Recent hospitalization with left knee pain, status post injection and physical therapist recommended rehab placement The patient was discharged home with home health nurse and home PT after discussion with the son and as per case resource manager evaluation. Came back within a few days with a mechanical fall and intertrochanteric frac ture of left femur #. Closed fracture of left hip Secondary to mechanical fall Admitting hip x-ray: Left femoral intertrochanteric fracture, no dislocation. Distal neurovascular status normal Orthopedics consulted: Open reduction and internal fixation of left displaced intertrochanteric hip fracture with a Synthes 235 mm x 11 mm trochanteric fixation nail with a 90 mm spiral blade and a 38 mm distal locking screw by Dr. Coffey on 08/27 SCDs and anticoagulation per orthopedic recommendation -aspirin 81 mg twice daily PT/OT with orthopedics recommendation. Still complains a lot of pain in the left hip Pain in the left lower extremity even with touch-we will try small dose of gabapentin for possible neuropathic pain Awaiting placement (2) COVID-19: Plan: #. [id number] being vaccinated Patient denies any signs or symptoms suggestive of COVID-19 Admitting CXR negative for any acute finding Patient tested positive for Covid in the ED on 08/26 Patient asymptomatic, on minimal oxygen likely postoperative requirement, continue to monitor, does not qualify for any medications for COVID-19. Continue incentive spirometry while awake, flutter valve Remains asymptomatic of COVID-19 infection Has been requiring very minimal minimal or no oxygen to maintain saturation (3) Fall: Plan: Status post mechanical fall (4) E. coli UTI: (5) PSVT (paroxysmal supraventricular tachycardia): Plan: #. Supraventricular tachycardia #. History of such. #. Electrolytes abnormality #. HTN SVTs with heart rate in 180s on 08/29 at 3:50 PM--> resolved 5:10 PM after dose of 5 mg metoprolol and 6 mg adenosine Follow-up electrolytes after 08/30 event fairly WNL, calcium gluconate replaced, follow-up EKG -->sinus rhythm, cardiology consulted Echo ordered, awaiting. Per cardiology, metoprolol 25 twice daily started 08/29 and home dose of atenolol stopped, held lisinopril 08/30 --> 09/01 Stop lisinopril and start amlodipine 2.5 mg daily instead Continue telemetry, patient in sinus rhythm currently. Maintain gentle hydration as appropriate. Monitor electrolytes and replace as appropriate. Plan: 76-year-old lady with PMH of HTN, paroxysmal PT, HLD, DM2 on oral meds, chronic anemia [baseline around 10], blindness of right eye, osteoporosis and CKD presented 08/26 to our ED secondary to mechanical fall and hurting her left hip. Patient is being managed for the following: #. Mild hyponatremia C/w monitoring. stable. Stop lisinopril and start amlodipine 2.5 mg daily. Sodium remains at 132 #. Constipation Patient has not moved bowel since after surgery Bowel sounds good on examination. Patient not eating enough food --> seems to have improved a little bit. Continue to monitor, bowel regimen Use laxatives. #. Acute blood loss anemia #. Chronic anemia Baseline hemoglobin around 10-11 Admitting hemoglobin dropped from 10.2 to 7.4 Secondary to hip fracture Status post 1 unit 08/27 prior to surgery. Status post another unit 08/29 evening. f/u daily Hb and as needed. Maintain hemoglobin above 8, transfuse for hemoglobin less than 8. #. Chronic medical conditions: HTN, HLD, DM, paroxysmal VT Continue with atorvastatin, Switched lisinopril to amlodipine. Hold Metformin. Switched atenolol to metoprolol. Patient on SSI insulin. Continue to monitor. #. Symptomatic pyuria #. E. coli UTI Follow-up urine culture, E. coli UTI pansensitive. Completed course of Rocephin on 08/30. DVT prophylaxisSCDs. Baby aspirin twice daily per orthopedics. DNR. Disposition: Continue PT/OT with orthopedics recommendation while inpatient. Likely need placement, pending evaluation. CM to assist with discharge planning. Patient's son Mr. Art Escobedo, can be reached at [phone]. Admission and Anticipated Discharge Date Admission Date: August 26, 2021 Subjective 09/02/2021 The patient was seen and examined in telemetry unit and in the Covid room She has been moaning most of the time even with touching the left lower extremity mainly Denies any respiratory symptoms of cough, shortness of breath or wheezing 09/03/2021 The patient was seen and examined in telemetry unit and in the Covid room She has been stable Still complains to have pain in the left lower extremity Review of Systems Review of Systems: All systems reviewed and are unremarkable except as noted below Musculoskeletal: Pain in the left hip and pain even touching the left lower extremity Physical Exam Physical Exam: Lying in bed with constant moaning secondary to pain in the l eft hip joint Constitutional: well developed, well nourished, + ill appearing and average body habitus Eyes: PERRL, conjunctivae normal, anicteric sclerae ENMT: external ear and nose normal, oropharynx normal Neck: trachea midline, no thyromegaly Respiratory: no respiratory distress and no cough Auscultation: + diminished lung sounds; no crackles and no wheezes Cardiovascular: Rate/Rhythm: regular rate and regular rhythm; not tachycardic Heart Sounds: normal S1 and normal S2; no murmur Extremities: + edema (Trace edema bilaterally) Gastrointestinal (Abdomen): Inspection/Auscultation: normal bowel sounds; abdomen not distended Percussion/Palpation: abdomen soft; abdomen nontender Musculoskeletal: Extreme pain with movement of the left lower extremity and even touching the left lower extremity Neurologic: Alert and awake. Generally weak and lethargic Lymphatic: no cervical or axillary lymphadenopathy Results & Data Results & Data ([facility]) Vital Signs (Past 12 Hours) Vital Signs Temp Pulse Resp BP Pulse Ox Pulse Ox 09/03/21 16:50 36.7 C 71 18 132/80 98 09/03/21 11:04 36.4 C L 73 18 123/64 99 09/03/21 07:53 37.2 C 76 20 134/73 96 09/03/21 07:00 96 Medications Administered Current Inpatient Medications Acetaminophen (Acetaminophen 325 Mg Tab) 325 mg PO Q6H PRN PRN Reason: Mild Pain Stop: 09/30/21 00:46 Last Admin: 08/31/21 12:48 Dose: 325 mg Documented by: Amlodipine Besylate (Amlodipine Besylate 5 Mg Tab) 2.5 mg PO QAM [facility] Stop: 10/01/21 13:59 Last Admin: 09/03/21 08:34 Dose: 2.5 mg Documented by: Aspirin (Aspirin 81 Mg Ectab) 81 mg PO BID [facility] Stop: 09/27/21 20:59 Last Admin: 09/03/21 08:33 Dose: 81 mg Documented by: Atenolol (Atenolol 25 Mg Tablet) 12.5 mg PO DAILY [facility] Stop: 09/26/21 08:59 Last Admin: 08/29/21 08:47 Dose: 12.5 mg Documented by: Bisacodyl (Bisacodyl 10 Mg Supp) 10 mg [place] DAILY PRN PRN Reason: Constipation Stop: 09/25/21 23:12 Dextrose (Dextrose 50% 50 Ml Syringe) 25 - 50 ml IV UD PRN; Protocol PRN Reason: Hypoglycemia Protocol Stop: 09/25/21 23:12 Glucagon (Glucagon For Inj 1 Mg Vial) 1 mg SQ UD PRN; Protocol PRN Reason: Hypoglycemia Protocol Stop: 09/25/21 23:12 Glucose (Glucose 10 Tabs/Tube) 4 - 8 tabs PO UD PRN; Protocol PRN Reason: Hypoglycemia Protocol Stop: 09/25/21 23:12 Glucose (Glucose 40% Gel 15 Gm Tube) 15 - 30 gm PO UD PRN; Protocol PRN Reason: Hypoglycemia Protocol Stop: 09/25/21 23:12 Promethazine HCl 6.25 mg/ (Sodium Chloride) 50.25 mls @ 201 mls/hr IV Q6H PRN PRN Reason: Nausea And Vomiting Stop: 09/25/21 23:12 Insulin Aspart (Insulin Aspart 100 Units/Ml 3 Ml Pen) 0 units SC ACHS [facility] Stop: 09/25/21 23:29 Last Admin: 09/03/21 16:31 Dose: Not Given Documented by: Metoprolol Tartrate (Metoprolol Tartrate 25 Mg Tab) 25 mg PO BID [facility] Stop: 09/28/21 17:24 Last Admin: 09/03/21 08:34 Dose: 25 mg Documented by: Miscellaneous (Carbohydrates For Hypoglycemia ) 15 - 30 gm PO UD PRN PRN Reason: Hypoglycemia Protocol Stop: 09/25/21 23:12 Last Admin: 08/31/21 08:20 Dose: 15 gm Documented by: Morphine Sulfate (Morphine Sulfate 2 Mg/Ml Carp) 2 mg IV Q6H PRN PRN Reason: Pain Stop: 09/12/21 17:33 Last Admin: 09/01/21 08:08 Dose: 2 mg Documented by: Multivitamins (Multivitamin Tab) 1 tab PO DAILY [facility] Stop: 09/26/21 08:59 Last Admin: 09/03/21 08:34 Dose: 1 tab Documented by: Naloxone HCl (Naloxone Hcl 0.4 Mg/1 Ml Vial/Carp) 0.1 mg IV UD PRN PRN Reason: Opiate Overdose Stop: 09/25/21 23:12 Naloxone HCl (Naloxone Hcl 0.4 Mg/1 Ml Vial/Carp) 0.1 mg IV Q5M PRN PRN Reason: Oversedation/Resp depression Stop: 09/26/21 20:43 Oxycodone/Acetaminophen (Oxycodone/Acetaminophen 5mg/325mg Tab) 1 tab PO Q4H PRN PRN Reason: Pain Stop: 09/15/21 15:34 Last Admin: 09/03/21 08:33 Dose: 1 tab Documented by: Polyethylene Glycol (Polyethylene (Miralax) 17 Gm Pack) 17 gm PO DAILY [facility] Stop: 09/04/21 09:01 Last Admin: 09/03/21 08:35 Dose: 17 gm Documented by: Vitamin D (Cholecalciferol 1,000 Units 25 Mcg Tab) 5,000 units PO DAILY [facility] Stop: 09/26/21 08:59 Last Admin: 09/03/21 08:34 Dose: 5,000 units Documented by: (1) Fall Encounter type: initial encounter Qualified Code(s): W19.XXXA - Unspecified fall, initial encounter
[2021-09-03] MEDS: MoRPHine SULFATE 2 MG/ML CARP IV PRN (21:03)
[2021-09-04 07:05] LABS: Basophils # (auto) 0.01 K/uL (0-0.2); Basophils % (auto) 0.1 %; Eosinophils # (auto) 0.06 K/uL (0-0.5); Eosinophils % (auto) 0.8 %; Hemoglobin 9.9 g/dL (12.0-16.0); Immature Granulocytes # (auto) 0.13 K/uL (0.00-0.02); Immature Granulocytes % (auto) 1.8 %; Lymphocytes # (auto) 0.83 K/uL (1.2-3.4); Lymphocytes % (auto) 11.6 %; Mean Corpuscular Hemoglobin 29.4 pg (25-34); Mean Platelet Volume 9.1 fL (7.4-10.4); Monocytes # (auto) 0.99 K/uL (0.11-0.59); Monocytes % (auto) 13.8 %; Neutrophils # (auto) 5.13 K/uL (1.4-6.5); Neutrophils % (auto) 71.9 %; Platelet Count 353 K/uL (130-400); RDW Coefficient of Variation 15.1 % (11.5-14.5); RDW Standard Deviation 49.4 fL (36.4-46.3); Red Blood Count 3.37 M/uL (4.2-5.4); White Blood Count 7.15 K/uL (4.8-10.8)
[2021-09-04 07:31] LABS: BUN Creatinine Ratio 41.5 (10-20); Calcium 8.1 mg/dl (8.5-10.1); Est GFR (African American) 104.1 ml/min; Est GFR (Non-African American) 89.8 ml/min; Magnesium 2.2 mg/dl (1.8-2.4)
[2021-09-04 07:46] LABS: Phosphorus 2.5 mg/dl (2.5-4.9)
[2021-09-04] MEDS: MULTIVITAMIN TAB PO SCH (08:13)
[2021-09-04] MEDS: CHOLECALCIFEROL 1,000 UNITS 25 MCG TAB PO SCH (08:13)
[2021-09-04] MEDS: ASPIRIN 81 MG ECTAB PO SCH ×2 (08:18→20:52)
[2021-09-04] MEDS: METOPROLOL TARTRATE 25 MG TAB PO SCH ×2 (08:18→20:53)
[2021-09-04] MEDS: amLODIPine BESYLATE 5 MG TAB PO SCH (08:18)
[2021-09-04] MEDS: POLYETHYLENE (MIRALAX) 17 GM PACK PO SCH (08:30)
[2021-09-04] MEDS: INSULIN ASPART 100 UNITS/ML 3 ML PEN SC SCH ×4 (09:27→20:55)
--- NOTE | 2021-09-04 16:30 | Hospitalist Progress Note ---
Date of Service September 04, 2021 Assessment & Plan (1) Intertrochanteric fracture of left femur: Plan: Following a mechanical fall at home Recent hospitalization with left knee pain, status post injection and physical therapist recommended rehab placement The patient was discharged home with home health nurse and home PT after discussion with the son and as per case repairer evaluation. Came back within a few days with a mechanical fall and intertrochanteric frac ture of left femur #. Closed fracture of left hip Secondary to mechanical fall Admitting hip x-ray: Left femoral intertrochanteric fracture, no dislocation. Distal neurovascular status normal Orthopedics consulted: Open reduction and internal fixation of left displaced intertrochanteric hip fracture with a Synthes 235 mm x 11 mm trochanteric fixation nail with a 90 mm spiral blade and a 38 mm distal locking screw by Dr. Coffey on 08/27 SCDs and anticoagulation per orthopedic recommendation -aspirin 81 mg twice daily PT/OT with orthopedics recommendation. Still complains a lot of pain in the left hip Pain in the left lower extremity even with touch-we will try small dose of gabapentin for possible neuropathic pain Clinically a little better and has been getting physical therapy Awaiting placement (2) COVID-19: Plan: #. [id number] being vaccinated Patient denies any signs or symptoms suggestive of COVID-19 Admitting CXR negative for any acute finding Patient tested positive for Covid in the ED on 08/26 Patient asymptomatic, on minimal oxygen likely postoperative requirement, continue to monitor, does not qualify for any medications for COVID-19. Continue incentive spirometry while awake, flutter valve Remains asymptomatic of COVID-19 infection Has been requiring very minimal minimal or no oxygen to maintain saturation Saturating normally on room air (3) Fall: Plan: Status post mechanical fall (4) E. coli UTI: (5) PSVT (paroxysmal supraventricular tachycardia): Plan: #. Supraventricular tachycardia #. History of such. #. Electrolytes abnormality #. HTN SVTs with heart rate in 180s on 08/29 at 3:50 PM--> resolved 5:10 PM after dose of 5 mg metoprolol and 6 mg adenosine Follow-up electrolytes after 08/30 event fairly WNL, calcium gluconate replaced, follow-up EKG -->sinus rhythm, cardiology consulted Echo ordered, awaiting. Per cardiology, metoprolol 25 twice daily started 11/6 and home dose of atenolol stopped, held lisinopril 08/30 --> 09/01 Stop lisinopril and start amlodipine 2.5 mg daily instead Continue telemetry, patient in sinus rhythm currently. Maintain gentle hydration as appropriate. Monitor electrolytes and replace as appropriate. Plan: 76-year-old lady with PMH of HTN, paroxysmal PT, HLD, DM2 on oral meds, chronic anemia [baseline around 10], blindness of right eye, osteoporosis and CKD presented 08/26 to our ED secondary to mechanical fall and hurting her left hip. Patient is being managed for the following: #. Mild hyponatremia C/w monitoring. stable. Stop lisinopril and start amlodipine 2.5 mg daily. Sodium remains at 132 #. Constipation Patient has not moved bowel since after surgery Bowel sounds good on examination. Patient not eating enough food --> seems to have improved a little bit. Continue to monitor, bowel regimen Use laxatives. #. Acute blood loss anemia #. Chronic anemia Baseline hemoglobin around 10-11 Admitting hemoglobin dropped from 10.2 to 7.4 Secondary to hip fracture Status post 1 unit 08/27 prior to surgery. Status post another unit 08/29 evening. f/u daily Hb and as needed. Maintain hemoglobin above 8, transfuse for hemoglobin less than 8. #. Chronic medical conditions: HTN, HLD, DM, paroxysmal VT Continue with atorvastatin, Switched lisinopril to amlodipine. Hold Metformin. Switched atenolol to metoprolol. Patient on SSI insulin. Continue to monitor. #. Symptomatic pyuria #. E. coli UTI Follow-up urine culture, E. coli UTI pansensitive. Completed course of Rocephin on 08/30. DVT prophylaxisSCDs. Baby aspirin twice daily per orthopedics. DNR. Disposition: Continue PT/OT with orthopedics recommendation while inpatient. Likely need placement, pending evaluation. CM to assist with discharge planning. Patient's son Mr. Art Escobedo, can be reached at [phone]. Admission and Anticipated Discharge Date Admission Date: August 26, 2021 Subjective 09/02/2021 The patient was seen and examined in telemetry unit and in the Covid room She has been moaning most of the time even with touching the left lower extremity mainly Denies any respiratory symptoms of cough, shortness of breath or wheezing 09/03/2021 The patient was seen and examined in telemetry unit and in the Covid room She has been stable Still complains to have pain in the left lower extremity 09/04/2021 The patient was seen and examined in the medical unit and in the Covid room She remains weak and lethargic and is still moans with pain Has been getting physical therapy Does not require any oxygen at rest Review of Systems Review of Systems: All systems reviewed and are unremarkable except as noted below Musculoskeletal: Pain in the left hip and pain even touching the left lower extremity Physical Exam Physical Exam: Lying in bed with constant moaning secondary to pain in the left hip joint Constitutional: well developed, well nourished, + ill appearing and average body habitus Eyes: PERRL, conjunctivae normal, anicteric sclerae ENMT: external ear and nose normal, oropharynx normal Neck: trachea midline, no thyromegaly Respiratory: no respiratory distress and no cough Auscultation: + diminished lung sounds; no crackles and no wheezes Cardiovascular: Rate/Rhythm: regular rate and regular rhythm; not tachycardic Heart Sounds: normal S1 and normal S2; no murmur Extremities: + edema (Trace edema bilaterally) Gastrointestinal (Abdomen): Inspection/Auscultation: normal bowel sounds; abdomen not distended Percussion/Palpation: abdomen soft; abdomen nontender Musculoskeletal: Has pain in hipwith movement of the left lower extremity Neurologic: Alert and awake. Pleasantly confused. Generally weak and lethargic Lymphatic: no cervical or axillary lymphadenopathy Results & Data Results & Data ([facility]) Vital Signs (Past 12 Hours) Vital Signs Temp Pulse Pulse Pulse Resp BP BP 09/04/21 16:19 96 H 09/04/21 12:15 36.7 C 91 H 18 149/89 H 09/04/21 08:08 36.8 C 86 18 155/85 H 09/04/21 08:00 81 Pulse Ox 09/04/21 16:19 09/04/21 12:15 96 09/04/21 08:08 99 09/04/21 08:00 Laboratory Results Short CBC 09/04/21 Range/Units 06:15 WBC 7.15 (4.8-10.8) K/uL Hgb 9.9 L (12.0-16.0) g/dL Hct 30.0 L (37-47) % Plt Count 353 (130-400) K/uL BMP 09/04/21 06:15 Sodium 132 L Potassium 4.0 Chloride 99 Carbon Dioxide 27 BUN 23 H Creatinine 0.55 L Glucose 89 Calcium 8.1 L Medications Administered Current Inpatient Medications Acetaminophen (Acetaminophen 325 Mg Tab) 325 mg PO Q6H PRN PRN Reason: Mild Pain Stop: 09/30/21 00:46 Last Admin: 08/31/21 12:48 Dose: 325 mg Documented by: Amlodipine Besylate (Amlodipine Besylate 5 Mg Tab) 2.5 mg PO QAM [facility] Stop: 10/01/21 13:59 Last Admin: 09/04/21 08:18 Dose: 2.5 mg Documented by: Aspirin (Aspirin 81 Mg Ectab) 81 mg PO BID [facility] Stop: 09/27/21 20:59 Last Admin: 09/04/21 08:18 Dose: 81 mg Documented by: Atenolol (Atenolol 25 Mg Tablet) 12.5 mg PO DAILY [facility] Stop: 09/26/21 08:59 Last Admin: 08/29/21 08:47 Dose: 12.5 mg Documented by: Bisacodyl (Bisacodyl 10 Mg Supp) 10 mg [place] DAILY PRN PRN Reason: Constipation Stop: 09/25/21 23:12 Dextrose (Dextrose 50% 50 Ml Syringe) 25 - 50 ml IV UD PRN; Protocol PRN Reason: Hypoglycemia Protocol Stop: 09/25/21 23:12 Glucagon (Glucagon For Inj 1 Mg Vial) 1 mg SQ UD PRN; Protocol PRN Reason: Hypoglycemia Protocol Stop: 09/25/21 23:12 Glucose (Glucose 10 Tabs/Tube) 4 - 8 tabs PO UD PRN; Protocol PRN Reason: Hypoglycemia Protocol Stop: 09/25/21 23:12 Glucose (Glucose 40% Gel 15 Gm Tube) 15 - 30 gm PO UD PRN; Protocol PRN Reason: Hypoglycemia Protocol Stop: 09/25/21 23:12 Promethazine HCl 6.25 mg/ (Sodium Chloride) 50.25 mls @ 201 mls/hr IV Q6H PRN PRN Reason: Nausea And Vomiting Stop: 09/25/21 23:12 Insulin Aspart (Insulin Aspart 100 Units/Ml 3 Ml Pen) 0 units SC ACHS [facility] Stop: 09/25/21 23:29 Last Admin: 09/04/21 12:54 Dose: Not Given Documented by: Metoprolol Tartrate (Metoprolol Tartrate 25 Mg Tab) 25 mg PO BID [facility] Stop: 09/28/21 17:24 Last Admin: 09/04/21 08:18 Dose: 25 mg Documented by: Miscellaneous (Carbohydrates For Hypoglycemia ) 15 - 30 gm PO UD PRN PRN Reason: Hypoglycemia Protocol Stop: 09/25/21 23:12 Last Admin: 08/31/21 08:20 Dose: 15 gm Documented by: Morphine Sulfate (Morphine Sulfate 2 Mg/Ml Carp) 2 mg IV Q6H PRN PRN Reason: Pain Stop: 09/12/21 17:33 Last Admin: 09/03/21 21:03 Dose: 2 mg Documented by: Multivitamins (Multivitamin Tab) 1 tab PO DAILY [facility] Stop: 09/26/21 08:59 Last Admin: 09/04/21 08:13 Dose: 1 tab Documented by: Naloxone HCl (Naloxone Hcl 0.4 Mg/1 Ml Vial/Carp) 0.1 mg IV UD PRN PRN Reason: Opiate Overdose Stop: 09/25/21 23:12 Naloxone HCl (Naloxone Hcl 0.4 Mg/1 Ml Vial/Carp) 0.1 mg IV Q5M PRN PRN Reason: Oversedation/Resp depression Stop: 09/26/21 20:43 Oxycodone/Acetaminophen (Oxycodone/Acetaminophen 5mg/325mg Tab) 1 tab PO Q4H PRN PRN Reason: Pain Stop: 09/15/21 15:34 Last Admin: 09/03/21 08:33 Dose: 1 tab Documented by: Vitamin D (Cholecalciferol 1,000 Units 25 Mcg Tab) 5,000 units PO DAILY [facility] Stop: 09/26/21 08:59 Last Admin: 09/04/21 08:13 Dose: 5,000 units Documented by: (1) Fall Encounter type: initial encounter Qualified Code(s): W19.XXXA - Unspecified fall, initial encounter
[2021-09-04] MEDS: GABAPENTIN 100 MG CAP PO SCH (20:51)
[2021-09-04] MEDS: LORazepam 0.5 MG TAB PO PRN (21:18)
[2021-09-04] MEDS: MoRPHine SULFATE 2 MG/ML CARP IV PRN (21:18)
[2021-09-05] MEDS: METOPROLOL TARTRATE 25 MG TAB PO SCH ×2 (08:44→20:41)
[2021-09-05] MEDS: CHOLECALCIFEROL 1,000 UNITS 25 MCG TAB PO SCH (08:44)
[2021-09-05] MEDS: GABAPENTIN 100 MG CAP PO SCH ×2 (08:44→20:41)
[2021-09-05] MEDS: MULTIVITAMIN TAB PO SCH (08:44)
[2021-09-05] MEDS: ASPIRIN 81 MG ECTAB PO SCH ×2 (08:45→20:42)
[2021-09-05] MEDS: amLODIPine BESYLATE 5 MG TAB PO SCH (08:45)
[2021-09-05] MEDS: ACETAMINOPHEN 325 MG TAB PO PRN ×2 (08:52→20:41)
[2021-09-05] MEDS: INSULIN ASPART 100 UNITS/ML 3 ML PEN SC SCH ×4 (09:00→21:14)
--- NOTE | 2021-09-05 15:07 | Hospitalist Progress Note ---
Date of Service September 05, 2021 Assessment & Plan (1) Intertrochanteric fracture of left femur: Plan: Following a mechanical fall at home Recent hospitalization with left knee pain, status post injection and physical therapist recommended rehab placement The patient was discharged home with home health nurse and home PT after discussion with the son and as per pillowcase cutter evaluation. Came back within a few days with a mechanical fall and intertrochanteric frac ture of left femur #. Closed fracture of left hip Secondary to mechanical fall Admitting hip x-ray: Left femoral intertrochanteric fracture, no dislocation. Distal neurovascular status normal Orthopedics consulted: Open reduction and internal fixation of left displaced intertrochanteric hip fracture with a Synthes 235 mm x 11 mm trochanteric fixation nail with a 90 mm spiral blade and a 38 mm distal locking screw by Dr. Coffey on 08/27 SCDs and anticoagulation per orthopedic recommendation -aspirin 81 mg twice daily PT/OT with orthopedics recommendation. Still complains a lot of pain in the left hip Pain in the left lower extremity even with touch-we will try small dose of gabapentin for possible neuropathic pain Clinically a little better and has been getting physical therapy Awaiting placement Pain in the left hip and left lower extremity Secondary to recent fracture and surgery Likely has a component of neuropathic pain Gabapentin has been started (2) COVID-19: Plan: #. [id number] being vaccinated Patient denies any signs or symptoms suggestive of COVID-19 Admitting CXR negative for any acute finding Patient tested positive for Covid in the ED on 08/26 Patient asymptomatic, on minimal oxygen likely postoperative requirement, continue to monitor, does not qualify for any medications for COVID-19. Continue incentive spirometry while awake, flutter valve Remains asymptomatic of COVID-19 infection Has been requiring very minimal minimal or no oxygen to maintain saturation Saturating normally on room air She has been more than 10 days of positive Covid diagnosis ,we will move her out of isolation tomorrow (3) Fall: Plan: Status post mechanical fall (4) E. coli UTI: (5) PSVT (paroxysmal supraventricular tachycardia): Plan: #. Supraventricular tachycardia #. History of such. #. Electrolytes abnormality #. HTN SVTs with heart rate in 180s on 08/29 at 3:50 PM--> resolved 5:10 PM after dose of 5 mg metoprolol and 6 mg adenosine Follow-up electrolytes after 08/30 event fairly WNL, calcium gluconate replaced, follow-up EKG -->sinus rhythm, cardiology consulted Echo ordered, awaiting. Per cardiology, metoprolol 25 twice daily started 08/29 and home dose of atenolol stopped, held lisinopril 08/30 --> 09/01 Stop lisinopril and start amlodipine 2.5 mg daily instead Continue telemetry, patient in sinus rhythm currently. Maintain gentle hydration as appropriate. Monitor electrolytes and replace as appropriate. Plan: 76-year-old lady with PMH of HTN, paroxysmal PT, HLD, DM2 on oral meds, chronic anemia [baseline around 10], blindness of right eye, osteoporosis and CKD presented 08/26 to our ED secondary to mechanical fall and hurting her left hip. Patient is being managed for the following: #. Mild hyponatremia C/w monitoring. stable. Stop lisinopril and start amlodipine 2.5 mg daily. Sodium remains at 132 #. Constipation Patient has not moved bowel since after surgery Bowel sounds good on examination. Patient not eating enough food --> seems to have improved a little bit. Continue to monitor, bowel regimen Use laxatives. #. Acute blood loss anemia #. Chronic anemia Baseline hemoglobin around 10-11 Admitting hemoglobin dropped from 10.2 to 7.4 Secondary to hip fracture Status post 1 unit 08/27 prior to surgery. Status post another unit 08/29 evening. f/u daily Hb and as needed. Maintain hemoglobin above 8, transfuse for hemoglobin less than 8. #. Chronic medical conditions: HTN, HLD, DM, paroxysmal VT Continue with atorvastatin, Switched lisinopril to amlodipine. Hold Metformin. Switched atenolol to metoprolol. Patient on SSI insulin. Continue to monitor. #. Symptomatic pyuria #. E. coli UTI Follow-up urine culture, E. coli UTI pansensitive. Completed course of Rocephin on 08/30. DVT prophylaxisSCDs. Baby aspirin twice daily per orthopedics. DNR. Disposition: Continue PT/OT with orthopedics recommendation while inpatient. Likely need placement, pending evaluation. CM to assist with discharge planning. Patient's son Mr. Art Escobedo, can be reached at [phone]. Admission and Anticipated Discharge Date Admission Date: August 26, 2021 Subjective 09/02/2021 The patient was seen and examined in telemetry unit and in the Covid room She has been moaning most of the time even with touching the left lower extremity mainly Denies any respiratory symptoms of cough, shortness of breath or wheezing 09/03/2021 The patient was seen and examined in telemetry unit and in the Covid room She has been stable Still complains to have pain in the left lower extremity 09/04/2021 The patient was seen and examined in the medical unit and in the Covid room She remains weak and lethargic and is still moans with pain Has been getting physical therapy Does not require any oxygen at rest 09/05/2021 The patient was seen and examined in telemetry unit and in the Covid room She remains extremely lethargic and is saturating on room air Still complains of pain in the left hip and left lower extremity with movement Review of Systems Review of Systems: Unobtainable due to cognitive status Physical Exam Physical Exam: Lying in bed with constant moaning secondary to pain in the left hip joint Constitutional: well developed, well nourished, + ill appearing and average body habitus Eyes: PERRL, conjunctivae normal, anicteric sclerae ENMT: external ear and nose normal, oropharynx normal Neck: trachea midline, no thyromegaly Respiratory: no respiratory distress and no cough Auscultation: + diminished lung sounds; no crackles and no wheezes Cardiovascular: Rate/Rhythm: regular rate and regular rhythm; not tachycardic Heart Sounds: normal S1 and normal S2; no murmur Extremities: + edema (Trace edema bilaterally) Gastrointestinal (Abdomen): Inspection/Auscultation: normal bowel sounds; abdomen not distended Percussion/Palpation: abdomen soft; abdomen nontender Musculoskeletal: Left hip and left leg pain with any movement of the left lo wer extremity Neurologic: Alert and awake. Extremely weak and lethargic Lymphatic: no cervical or axillary lymphadenopathy Results & Data Results & Data ([facility]) Vital Signs (Past 12 Hours) Vital Signs Temp Pulse Pulse Resp BP Pulse Ox 09/05/21 12:42 37.1 C 105 H 20 153/76 H 92 09/05/21 08:04 37.1 C 91 H 16 160/81 H 96 09/05/21 04:28 37 C 100 H 18 162/97 H 95 Medications Administered Current Inpatient Medications Acetaminophen (Acetaminophen 325 Mg Tab) 325 mg PO Q6H PRN PRN Reason: Mild Pain Stop: 09/30/21 00:46 Last Admin: 09/05/21 08:52 Dose: 325 mg Documented by: Amlodipine Besylate (Amlodipine Besylate 5 Mg Tab) 2.5 mg PO QAM [facility] Stop: 10/01/21 13:59 Last Admin: 09/05/21 08:45 Dose: 2.5 mg Documented by: Aspirin (Aspirin 81 Mg Ectab) 81 mg PO BID [facility] Stop: 09/27/21 20:59 Last Admin: 09/05/21 08:45 Dose: 81 mg Documented by: Atenolol (Atenolol 25 Mg Tablet) 12.5 mg PO DAILY [facility] Stop: 09/26/21 08:59 Last Admin: 08/29/21 08:47 Dose: 12.5 mg Documented by: Bisacodyl (Bisacodyl 10 Mg Supp) 10 mg [place] DAILY PRN PRN Reason: Constipation Stop: 09/25/21 23:12 Dextrose (Dextrose 50% 50 Ml Syringe) 25 - 50 ml IV UD PRN; Protocol PRN Reason: Hypoglycemia Protocol Stop: 09/25/21 23:12 Gabapentin (Gabapentin 100 Mg Cap) 100 mg PO BID [facility] Stop: 10/04/21 20:59 Last Admin: 09/05/21 08:44 Dose: 100 mg Documented by: Glucagon (Glucagon For Inj 1 Mg Vial) 1 mg SQ UD PRN; Protocol PRN Reason: Hypoglycemia Protocol Stop: 09/25/21 23:12 Glucose (Glucose 10 Tabs/Tube) 4 - 8 tabs PO UD PRN; Protocol PRN Reason: Hypoglycemia Protocol Stop: 09/25/21 23:12 Glucose (Glucose 40% Gel 15 Gm Tube) 15 - 30 gm PO UD PRN; Protocol PRN Reason: Hypoglycemia Protocol Stop: 09/25/21 23:12 Promethazine HCl 6.25 mg/ (Sodium Chloride) 50.25 mls @ 201 mls/hr IV Q6H PRN PRN Reason: Nausea And Vomiting Stop: 09/25/21 23:12 Insulin Aspart (Insulin Aspart 100 Units/Ml 3 Ml Pen) 0 units SC ACHS [facility] Stop: 09/25/21 23:29 Last Admin: 09/05/21 13:21 Dose: Not Given Documented by: Lorazepam (Lorazepam 0.5 Mg Tab) 0.5 mg PO HS PRN PRN Reason: Anxiety Stop: 10/04/21 19:20 Last Admin: 09/04/21 21:18 Dose: 0.5 mg Documented by: Metoprolol Tartrate (Metoprolol Tartrate 25 Mg Tab) 25 mg PO BID [facility] Stop: 09/28/21 17:24 Last Admin: 09/05/21 08:44 Dose: 25 mg Documented by: Miscellaneous (Carbohydrates For Hypoglycemia ) 15 - 30 gm PO UD PRN PRN Reason: Hypoglycemia Protocol Stop: 09/25/21 23:12 Last Admin: 08/31/21 08:20 Dose: 15 gm Documented by: Morphine Sulfate (Morphine Sulfate 2 Mg/Ml Carp) 2 mg IV Q6H PRN PRN Reason: Pain Stop: 09/12/21 17:33 Last Admin: 09/04/21 21:18 Dose: 2 mg Documented by: Multivitamins (Multivitamin Tab) 1 tab PO DAILY [facility] Stop: 09/26/21 08:59 Last Admin: 09/05/21 08:44 Dose: 1 tab Documented by: Naloxone HCl (Naloxone Hcl 0.4 Mg/1 Ml Vial/Carp) 0.1 mg IV UD PRN PRN Reason: Opiate Overdose Stop: 09/25/21 23:12 Naloxone HCl (Naloxone Hcl 0.4 Mg/1 Ml Vial/Carp) 0.1 mg IV Q5M PRN PRN Reason: Oversedation/Resp depression Stop: 09/26/21 20:43 Oxycodone/Acetaminophen (Oxycodone/Acetaminophen 5mg/325mg Tab) 1 tab PO Q4H PRN PRN Reason: Pain Stop: 09/15/21 15:34 Last Admin: 09/03/21 08:33 Dose: 1 tab Documented by: Vitamin D (Cholecalciferol 1,000 Units 25 Mcg Tab) 5,000 units PO DAILY [facility] Stop: 09/26/21 08:59 Last Admin: 09/05/21 08:44 Dose: 5,000 units Documented by: (1) Fall Encounter type: initial encounter Qualified Code(s): W19.XXXA - Unspecified fall, initial encounter
[2021-09-05] MEDS: LORazepam 0.5 MG TAB PO PRN (20:42)
[2021-09-06] MEDS: amLODIPine BESYLATE 5 MG TAB PO SCH (08:16)
[2021-09-06] MEDS: GABAPENTIN 100 MG CAP PO SCH ×2 (08:17→20:09)
[2021-09-06] MEDS: ASPIRIN 81 MG ECTAB PO SCH ×2 (08:17→20:10)
[2021-09-06] MEDS: MULTIVITAMIN TAB PO SCH (08:17)
[2021-09-06] MEDS: CHOLECALCIFEROL 1,000 UNITS 25 MCG TAB PO SCH (08:18)
[2021-09-06] MEDS: METOPROLOL TARTRATE 25 MG TAB PO SCH ×2 (08:18→20:10)
[2021-09-06] MEDS: ACETAMINOPHEN 325 MG TAB PO PRN ×2 (08:24→20:11)
[2021-09-06] MEDS: INSULIN ASPART 100 UNITS/ML 3 ML PEN SC SCH ×4 (10:56→21:55)
--- NOTE | 2021-09-06 13:30 | Hospitalist Progress Note ---
Date of Service September 06, 2021 Assessment & Plan (1) Intertrochanteric fracture of left femur: Plan: Following a mechanical fall at home Recent hospitalization with left knee pain, status post injection and physical therapist recommended rehab placement The patient was discharged home with home health nurse and home PT after discussion with the son and as per case manager specialist evaluation. Came back within a few days with a mechanical fall and intertrochanteric frac ture of left femur #. Closed fracture of left hip Secondary to mechanical fall Admitting hip x-ray: Left femoral intertrochanteric fracture, no dislocation. Distal neurovascular status normal Orthopedics consulted: Open reduction and internal fixation of left displaced intertrochanteric hip fracture with a Synthes 235 mm x 11 mm trochanteric fixation nail with a 90 mm spiral blade and a 38 mm distal locking screw by Dr. Coffey on 08/27 SCDs and anticoagulation per orthopedic recommendation -aspirin 81 mg twice daily PT/OT with orthopedics recommendation. Still complains a lot of pain in the left hip Pain in the left lower extremity even with touch-we will try small dose of gabapentin for possible neuropathic pain Pain seems to be under control Clinically much better and awaiting transfer to SNF Pain in the left hip and left lower extremity Secondary to recent fracture and surgery Likely has a component of neuropathic pain Gabapentin has been started-and pain seems to be under control (2) COVID-19: Plan: #. [id number] being vaccinated Patient denies any signs or symptoms suggestive of COVID-19 Admitting CXR negative for any acute finding Patient tested positive for Covid in the ED on 08/26 Patient asymptomatic, on minimal oxygen likely postoperative requirement, continue to monitor, does not qualify for any medications for COVID-19. Continue incentive spirometry while awake, flutter valve Remains asymptomatic of COVID-19 infection Has been requiring very minimal minimal or no oxygen to maintain saturation Saturating normally on room air She has been more than 10 days of positive Covid diagnosis ,we will move her out of isolation tomorrow She can come out of isolation today is the th day since Covid is diagnosed and she remains quite asymptomatic (3) Fall: Plan: Status post mechanical fall (4) E. coli UTI: (5) PSVT (paroxysmal supraventricular tachycardia): Plan: #. Supraventricular tachycardia #. History of such. #. Electrolytes abnormality #. HTN SVTs with heart rate in 180s on 08/29 at 3:50 PM--> resolved 5:10 PM after dose of 5 mg metoprolol and 6 mg adenosine Follow-up electrolytes after 08/30 event fairly WNL, calcium gluconate replaced, follow-up EKG -->sinus rhythm, cardiology consulted Echo ordered, awaiting. Per cardiology, metoprolol 25 twice daily started 08/29 and home dose of atenolol stopped, held lisinopril 08/30 --> 09/01 Stop lisinopril and start amlodipine 2.5 mg daily instead Continue telemetry, patient in sinus rhythm currently. Maintain gentle hydration as appropriate. Monitor electrolytes and replace as appropriate. Plan: 76-year-old lady with PMH of HTN, paroxysmal PT, HLD, DM2 on oral meds, chronic anemia [baseline around 10], blindness of right eye, osteoporosis and CKD presented 08/26 to our ED secondary to mechanical fall and hurting her left hip. Patient is being managed for the following: #. Mild hyponatremia C/w monitoring. stable. Stop lisinopril and start amlodipine 2.5 mg daily. Sodium remains at 132 #. Constipation Patient has not moved bowel since after surgery Bowel sounds good on examination. Patient not eating enough food --> seems to have improved a little bit. Continue to monitor, bowel regimen Use laxatives. #. Acute blood loss anemia #. Chronic anemia Baseline hemoglobin around 10-11 Admitting hemoglobin dropped from 10.2 to 7.4 Secondary to hip fracture Status post 1 unit 08/27 prior to surgery. Status post another unit 08/29 evening. f/u daily Hb and as needed. Maintain hemoglobin above 8, transfuse for hemoglobin less than 8. We will check CBC again tomorrow #. Chronic medical conditions: HTN, HLD, DM, paroxysmal VT Continue with atorvastatin, Switched lisinopril to amlodipine. Hold Metformin. Switched atenolol to metoprolol. Patient on SSI insulin. Continue to monitor. #. Symptomatic pyuria #. E. coli UTI Follow-up urine culture, E. coli UTI pansensitive. Completed course of Rocephin on 08/30. DVT prophylaxisSCDs. Baby aspirin twice daily per orthopedics. DNR. Disposition: Continue PT/OT with orthopedics recommendation while inpatient. Likely need placement, pending evaluation. CM to assist with discharge planning. Patient's son Mr. Art Escobedo, can be reached at [phone]. Discussed with the granddaughter in detail 09/06/2021 Admission and Anticipated Discharge Date Admission Date: August 26, 2021 Subjective 09/02/2021 The patient was seen and examined in telemetry unit and in the Covid room She has been moaning most of the time even with touching the left lower extremity mainly Denies any respiratory symptoms of cough, shortness of breath or wheezing 09/03/2021 The patient was seen and examined in telemetry unit and in the Covid room She has been stable Still complains to have pain in the left lower extremity 09/04/2021 The patient was seen and examined in the medical unit and in the Covid room She remains weak and lethargic and is still moans with pain Has been getting physical therapy Does not require any oxygen at rest 09/05/2021 The patient was seen and examined in telemetry unit and in the Covid room She remains extremely lethargic and is saturating on room air Still complains of pain in the left hip and left lower extremity with movement 09/06/2021 The patient was seen and examined in telemetry unit and in the Covid room Today is one of her best days Has been conversing normally and mentioned that the pain is being controlled reasonably She denies any shortness of breath and her cough Review of Systems Review of Systems: All systems reviewed and are unremarkable except as noted below Musculoskeletal: Pain in the left hip and pain even touching the left lower extremity-has been improving Physical Exam Physical Exam: Lying in bed with constant moaning secondary to pain in the left hip joint Constitutional: well developed, well nourished, + ill appearing and average body habitus Eyes: PERRL, conjunctivae normal, anicteric sclerae ENMT: external ear and nose normal, oropharynx normal Neck: trachea midline, no thyromegaly Respiratory: no respiratory distress and no cough Auscultation: + diminished lung sounds; no crackles and no wheezes Cardiovascular: Rate/Rhythm: regular rate and regular rhythm; not tachycardic Heart Sounds: normal S1 and normal S2; no murmur Extremities: + edema (Trace edema bilaterally) Gastrointestinal (Abdomen): Inspection/Auscultation: normal bowel sounds; abdomen not distended Percussion/Palpation: abdomen soft; abdomen nontender Musculoskeletal: No acute arthritis in any joint Neurologic: Alert and awake. Generally weak. Denies any focal neuro deficit Lymphatic: no cervical or axillary lymphadenopathy Results & Data Results & Data ([facility]) Vital Signs (Past 12 Hours) Vital Signs Temp Pulse Pulse Resp BP BP Pulse Ox 09/06/21 11:47 36.4 C L 84 18 146/81 H 93 09/06/21 08:05 36.8 C 101 H 19 154/78 H 92 09/06/21 08:00 83 09/06/21 06:00 79 09/06/21 03:44 36.9 C 82 16 167/87 H 98 09/06/21 03:00 Pulse Ox 09/06/21 11:47 09/06/21 08:05 09/06/21 08:00 09/06/21 06:00 09/06/21 03:44 09/06/21 03:00 94 Medications Administered Current Inpatient Medications Acetaminophen (Acetaminophen 325 Mg Tab) 325 mg PO Q6H PRN PRN Reason: Mild Pain Stop: 09/30/21 00:46 Last Admin: 09/06/21 08:24 Dose: 325 mg Documented by: Amlodipine Besylate (Amlodipine Besylate 5 Mg Tab) 2.5 mg PO QAM [facility] Stop: 10/01/21 13:59 Last Admin: 09/06/21 08:16 Dose: 2.5 mg Documented by: Aspirin (Aspirin 81 Mg Ectab) 81 mg PO BID [facility] Stop: 09/27/21 20:59 Last Admin: 09/06/21 08:17 Dose: 81 mg Documented by: Bisacodyl (Bisacodyl 10 Mg Supp) 10 mg [place] DAILY PRN PRN Reason: Constipation Stop: 09/25/21 23:12 Dextrose (Dextrose 50% 50 Ml Syringe) 25 - 50 ml IV UD PRN; Protocol PRN Reason: Hypoglycemia Protocol Stop: 09/25/21 23:12 Gabapentin (Gabapentin 100 Mg Cap) 100 mg PO BID [facility] OF [facility] Stop: 10/04/21 20:59 Last Admin: 09/06/21 08:17 Dose: 100 mg Documented by: Glucagon (Glucagon For Inj 1 Mg Vial) 1 mg SQ UD PRN; Protocol PRN Reason: Hypoglycemia Protocol Stop: 09/25/21 23:12 Glucose (Glucose 10 Tabs/Tube) 4 - 8 tabs PO UD PRN; Protocol PRN Reason: Hypoglycemia Protocol Stop: 09/25/21 23:12 Glucose (Glucose 40% Gel 15 Gm Tube) 15 - 30 gm PO UD PRN; Protocol PRN Reason: Hypoglycemia Protocol Stop: 09/25/21 23:12 Promethazine HCl 6.25 mg/ (Sodium Chloride) 50.25 mls @ 201 mls/hr IV Q6H PRN PRN Reason: Nausea And Vomiting Stop: 09/25/21 23:12 Insulin Aspart (Insulin Aspart 100 Units/Ml 3 Ml Pen) 0 units SC ACHS ON LICENSE OF [facility] Stop: 09/25/21 23:29 Last Admin: 09/06/21 10:56 Dose: Not Given Documented by: Lorazepam (Lorazepam 0.5 Mg Tab) 0.5 mg PO HS PRN PRN Reason: Anxiety Stop: 10/04/21 19:20 Last Admin: 09/05/21 20:42 Dose: 0.5 mg Documented by: Metoprolol Tartrate (Metoprolol Tartrate 25 Mg Tab) 25 mg PO BID [facility] Stop: 09/28/21 17:24 Last Admin: 09/06/21 08:18 Dose: 25 mg Documented by: Miscellaneous (Carbohydrates For Hypoglycemia ) 15 - 30 gm PO UD PRN PRN Reason: Hypoglycemia Protocol Stop: 09/25/21 23:12 Last Admin: 08/31/21 08:20 Dose: 15 gm Documented by: Morphine Sulfate (Morphine Sulfate 2 Mg/Ml Carp) 2 mg IV Q6H PRN PRN Reason: Pain Stop: 09/12/21 17:33 Last Admin: 09/04/21 21:18 Dose: 2 mg Documented by: Multivitamins (Multivitamin Tab) 1 tab PO DAILY [facility] Stop: 09/26/21 08:59 Last Admin: 09/06/21 08:17 Dose: 1 tab Documented by: Naloxone HCl (Naloxone Hcl 0.4 Mg/1 Ml Vial/Carp) 0.1 mg IV UD PRN PRN Reason: Opiate Overdose Stop: 09/25/21 23:12 Naloxone HCl (Naloxone Hcl 0.4 Mg/1 Ml Vial/Carp) 0.1 mg IV Q5M PRN PRN Reason: Oversedation/Resp depression Stop: 09/26/21 20:43 Oxycodone/Acetaminophen (Oxycodone/Acetaminophen 5mg/325mg Tab) 1 tab PO Q4H PRN PRN Reason: Pain Stop: 09/15/21 15:34 Last Admin: 09/03/21 08:33 Dose: 1 tab Documented by: Vitamin D (Cholecalciferol 1,000 Units 25 Mcg Tab) 5,000 units PO DAILY [facility] Stop: 09/26/21 08:59 Last Admin: 09/06/21 08:18 Dose: 5,000 units Documented by: (1) Fall Encounter type: initial encounter Qualified Code(s): W19.XXXA - Unspecified fall, initial encounter
[2021-09-06] MEDS: LORazepam 0.5 MG TAB PO PRN (20:11)
[2021-09-07 06:36] LABS: Basophils # (auto) 0.04 K/uL (0-0.2); Basophils % (auto) 0.4 %; Eosinophils # (auto) 0.12 K/uL (0-0.5); Eosinophils % (auto) 1.2 %; Hematocrit (blood only) 32.1 % (37-47); Hemoglobin 10.6 g/dL (12.0-16.0); Immature Granulocytes # (auto) 0.31 K/uL (0.00-0.02); Immature Granulocytes % (auto) 3.2 %; Lymphocytes # (auto) 1.03 K/uL (1.2-3.4); Lymphocytes % (auto) 10.6 %; Mean Corpuscular Volume 90.9 fL (80-100); Mean Platelet Volume 9.3 fL (7.4-10.4); Monocytes % (auto) 14.4 %; Neutrophils # (auto) 6.85 K/uL (1.4-6.5); Neutrophils % (auto) 70.2 %; Platelet Count 449 K/uL (130-400); RDW Coefficient of Variation 15.6 % (11.5-14.5); RDW Standard Deviation 50.4 fL (36.4-46.3); Red Blood Count 3.53 M/uL (4.2-5.4); White Blood Count 9.75 K/uL (4.8-10.8)
[2021-09-07 07:02] LABS: BUN Creatinine Ratio 44.9 (10-20); Calcium 8.3 mg/dl (8.5-10.1); Creatinine Clr Calc Pharmacy 58.8 ml/min; Est GFR (African American) 102.9 ml/min; Est GFR (Non-African American) 88.8 ml/min; Phosphorus 3.7 mg/dl (2.5-4.9); Potassium 4.3 mmol/L (3.5-5.1)
[2021-09-07] MEDS: INSULIN ASPART 100 UNITS/ML 3 ML PEN SC SCH ×4 (09:15→21:12)
[2021-09-07] MEDS: amLODIPine BESYLATE 5 MG TAB PO SCH (09:16)
[2021-09-07] MEDS: CHOLECALCIFEROL 1,000 UNITS 25 MCG TAB PO SCH (09:17)
[2021-09-07] MEDS: ASPIRIN 81 MG ECTAB PO SCH ×2 (09:17→22:00)
[2021-09-07] MEDS: GABAPENTIN 100 MG CAP PO SCH ×2 (09:18→21:02)
[2021-09-07] MEDS: METOPROLOL TARTRATE 25 MG TAB PO SCH ×2 (09:18→21:02)
[2021-09-07] MEDS: MULTIVITAMIN TAB PO SCH (09:19)
[2021-09-07] MEDS: oxyCODONE/ACETAMINOPHEN 5mg/325mg TAB PO PRN (09:25)
--- NOTE | 2021-09-07 13:11 | Hospitalist Progress Note ---
Date of Service September 07, 2021 Assessment & Plan (1) Intertrochanteric fracture of left femur: Plan: Following a mechanical fall at home Recent hospitalization with left knee pain, status post injection and physical therapist recommended rehab placement The patient was discharged home with home health nurse and home PT after discussion with the son and as per patient case manager evaluation. Came back within a few days with a mechanical fall and intertrochanteric frac ture of left femur #. Closed fracture of left hip Secondary to mechanical fall Admitting hip x-ray: Left femoral intertrochanteric fracture, no dislocation. Distal neurovascular status normal Orthopedics consulted: Open reduction and internal fixation of left displaced intertrochanteric hip fracture with a Synthes 235 mm x 11 mm trochanteric fixation nail with a 90 mm spiral blade and a 38 mm distal locking screw by Dr. Coffey on 08/27 SCDs and anticoagulation per orthopedic recommendation -aspirin 81 mg twice daily PT/OT with orthopedics recommendation. Still complains a lot of pain in the left hip Pain in the left lower extremity even with touch-we will try small dose of gabapentin for possible neuropathic pain Pain seems to be under control Clinically much better and awaiting transfer to SNF Pain in the left hip and left lower extremity Secondary to recent fracture and surgery Likely has a component of neuropathic pain Gabapentin has been started-and pain seems to be under control Denies any more pain (2) COVID-19: Plan: #. [id number] being vaccinated Patient denies any signs or symptoms suggestive of COVID-19 Admitting CXR negative for any acute finding Patient tested positive for Covid in the ED on 08/26 Patient asymptomatic, on minimal oxygen likely postoperative requirement, continue to monitor, does not qualify for any medications for COVID-19. Continue incentive spirometry while awake, flutter valve Remains asymptomatic of COVID-19 infection Has been requiring very minimal minimal or no oxygen to maintain saturation Saturating normally on room air She has been more than 10 days of positive Covid diagnosis ,we will move her out of isolation tomorrow She can come out of isolation today is the 11th day since Covid is diagnosed and she remains quite asymptomatic She is ready to be discharged (3) Fall: Plan: Status post mechanical fall (4) E. coli UTI: (5) PSVT (paroxysmal supraventricular tachycardia): Plan: #. Supraventricular tachycardia #. History of such. #. Electrolytes abnormality #. HTN SVTs with heart rate in 180s on 08/29 at 3:50 PM--> resolved 5:10 PM after dose of 5 mg metoprolol and 6 mg adenosine Follow-up electrolytes after 08/30 event fairly WNL, calcium gluconate replaced, follow-up EKG -->sinus rhythm, cardiology consulted Echo ordered, awaiting. Per cardiology, metoprolol 25 twice daily started 08/29 and home dose of atenolol stopped, held lisinopril 08/30 --> 09/01 Stop lisinopril and start amlodipine 2.5 mg daily instead Continue telemetry, patient in sinus rhythm currently. Maintain gentle hydration as appropriate. Monitor electrolytes and replace as appropriate. Plan: 76-year-old lady with PMH of HTN, paroxysmal PT, HLD, DM2 on oral meds, chronic anemia [baseline around 10], blindness of right eye, osteoporosis and CKD presented 08/26 to our ED secondary to mechanical fall and hurting her left hip. Patient is being managed for the following: #. Mild hyponatremia C/w monitoring. stable. Stop lisinopril and start amlodipine 2.5 mg daily. Sodium remains at 132 #. Constipation Patient has not moved bowel since after surgery Bowel sounds good on examination. Patient not eating enough food --> seems to have improved a little bit. Continue to monitor, bowel regimen Use laxatives. #. Acute blood loss anemia #. Chronic anemia Baseline hemoglobin around 10-11 Admitting hemoglobin dropped from 10.2 to 7.4 Secondary to hip fracture Status post 1 unit 08/27 prior to surgery. Status post another unit 08/29 evening. f/u daily Hb and as needed. Maintain hemoglobin above 8, transfuse for hemoglobin less than 8. We will check CBC again tomorrow #. Chronic medical conditions: HTN, HLD, DM, paroxysmal VT Continue with atorvastatin, Switched lisinopril to amlodipine. Hold Metformin. Switched atenolol to metoprolol. Patient on SSI insulin. Continue to monitor. #. Symptomatic pyuria #. E. coli UTI Follow-up urine culture, E. coli UTI pansensitive. Completed course of Rocephin on 08/30. DVT prophylaxisSCDs. Baby aspirin twice daily per orthopedics. DNR. Disposition: Continue PT/OT with orthopedics recommendation while inpatient. Likely need placement, pending evaluation. CM to assist with discharge planning. Patient's son Mr. Art Escobedo, can be reached at [phone]. Discussed with the granddaughter in detail 09/06/2021 Admission and Anticipated Discharge Date Admission Date: August 26, 2021 Subjective 09/02/2021 The patient was seen and examined in telemetry unit and in the Covid room She has been moaning most of the time even with touching the left lower extremity mainly Denies any respiratory symptoms of cough, shortness of breath or wheezing 09/03/2021 The patient was seen and examined in telemetry unit and in the Covid room She has been stable Still complains to have pain in the left lower extremity 09/04/2021 The patient was seen and examined in the medical unit and in the Covid room She remains weak and lethargic and is still moans with pain Has been getting physical therapy Does not require any oxygen at rest 09/05/2021 The patient was seen and examined in telemetry unit and in the Covid room She remains extremely lethargic and is saturating on room air Still complains of pain in the left hip and left lower extremity with movement 09/06/2021 The patient was seen and examined in telemetry unit and in the Covid room Today is one of her best days Has been conversing normally and mentioned that the pain is being controlled reasonably She denies any shortness of breath and her cough 09/07/2021 The patient was seen and examined in telemetry unit and in the Covid room She remains weak but denies any other significant symptoms Her pain is controlled and she does not have any Covid symptoms She can come out of isolation from COVID-19 infection Review of Systems Review of Systems: All systems reviewed and are unremarkable except as noted below Musculoskeletal: Pain in the left hip and pain even touching the left lower extremity-has been improving Physical Exam Physical Exam: Lying in bed with constant moaning secondary to pain in the left hip joint Constitutional: well developed, well nourished, + ill appearing and average body habitus Eyes: PERRL, conjunctivae normal, anicteric sclerae ENMT: external ear and nose normal, oropharynx normal Neck: trachea midline, no thyromegaly Respiratory: no respiratory distress and no cough Auscultation: + diminished lung sounds; no crackles and no wheezes Cardiovascular: Rate/Rhythm: regular rate and regular rhythm; not tachycardic Heart Sounds: normal S1 and normal S2; no murmur Extremities: + edema (Trace edema bilaterally) Gastrointestinal (Abdomen): Inspection/Auscultation: normal bowel sounds; abdomen not distended Percussion/Palpation: abdomen soft; abdomen nontender Musculoskeletal: Minimal pain with movement of the left lower extremity Neurologic: Alert and awake Lymphatic: no cervical or axillary lymphadenopathy Results & Data Results & Data ([facility]) Vital Signs (Past 12 Hours) Vital Signs Temp Pulse Resp BP BP Pulse Ox Pulse Ox 09/07/21 11:45 36.5 C 91 H 18 135/76 96 09/07/21 07:37 36.7 C 92 H 18 151/83 H 95 09/07/21 05:16 37.0 C 92 H 16 145/77 H 98 09/07/21 03:00 96 Laboratory Results Short CBC 09/07/21 Range/Units 05:37 WBC 9.75 (4.8-10.8) K/uL Hgb 10.6 L (12.0-16.0) g/dL Hct 32.1 L (37-47) % Plt Count 449 H (130-400) K/uL BMP 09/07/21 05:37 Sodium 134 L Potassium 4.3 Chloride 103 Carbon Dioxide 25 BUN 26 H Creatinine 0.57 L Glucose 81 Calcium 8.3 L Medications Administered Current Inpatient Medications Acetaminophen (Acetaminophen 325 Mg Tab) 325 mg PO Q6H PRN PRN Reason: Mild Pain Stop: 09/30/21 00:46 Last Admin: 09/06/21 20:11 Dose: 325 mg Documented by: Amlodipine Besylate (Amlodipine Besylate 5 Mg Tab) 2.5 mg PO QAM [facility] Stop: 10/01/21 13:59 Last Admin: 09/07/21 09:16 Dose: 2.5 mg Documented by: Aspirin (Aspirin 81 Mg Ectab) 81 mg PO BID [facility] Stop: 09/27/21 20:59 Last Admin: 09/07/21 09:17 Dose: 81 mg Documented by: Bisacodyl (Bisacodyl 10 Mg Supp) 10 mg [place] DAILY PRN PRN Reason: Constipation Stop: 09/25/21 23:12 Dextrose (Dextrose 50% 50 Ml Syringe) 25 - 50 ml IV UD PRN; Protocol PRN Reason: Hypoglycemia Protocol Stop: 09/25/21 23:12 Gabapentin (Gabapentin 100 Mg Cap) 100 mg PO BID [facility] Stop: 10/04/21 20:59 Last Admin: 09/07/21 09:18 Dose: 100 mg Documented by: Glucagon (Glucagon For Inj 1 Mg Vial) 1 mg SQ UD PRN; Protocol PRN Reason: Hypoglycemia Protocol Stop: 09/25/21 23:12 Glucose (Glucose 10 Tabs/Tube) 4 - 8 tabs PO UD PRN; Protocol PRN Reason: Hypoglycemia Protocol Stop: 09/25/21 23:12 Glucose (Glucose 40% Gel 15 Gm Tube) 15 - 30 gm PO UD PRN; Protocol PRN Reason: Hypoglycemia Protocol Stop: 09/25/21 23:12 Promethazine HCl 6.25 mg/ (Sodium Chloride) 50.25 mls @ 201 mls/hr IV Q6H PRN PRN Reason: Nausea And Vomiting Stop: 09/25/21 23:12 Insulin Aspart (Insulin Aspart 100 Units/Ml 3 Ml Pen) 0 units SC ACHS [facility] Stop: 09/25/21 23:29 Last Admin: 09/07/21 12:53 Dose: 2 units Documented by: Lorazepam (Lorazepam 0.5 Mg Tab) 0.5 mg PO HS PRN PRN Reason: Anxiety Stop: 10/04/21 19:20 Last Admin: 09/06/21 20:11 Dose: 0.5 mg Documented by: Metoprolol Tartrate (Metoprolol Tartrate 25 Mg Tab) 25 mg PO BID [facility] Stop: 09/28/21 17:24 Last Admin: 09/07/21 09:18 Dose: 25 mg Documented by: Miscellaneous (Carbohydrates For Hypoglycemia ) 15 - 30 gm PO UD PRN PRN Reason: Hypoglycemia Protocol Stop: 09/25/21 23:12 Last Admin: 08/31/21 08:20 Dose: 15 gm Documented by: Morphine Sulfate (Morphine Sulfate 2 Mg/Ml Carp) 2 mg IV Q6H PRN PRN Reason: Pain Stop: 09/12/21 17:33 Last Admin: 09/04/21 21:18 Dose: 2 mg Documented by: Multivitamins (Multivitamin Tab) 1 tab PO DAILY [facility] Stop: 09/26/21 08:59 Last Admin: 09/07/21 09:19 Dose: 1 tab Documented by: Naloxone HCl (Naloxone Hcl 0.4 Mg/1 Ml Vial/Carp) 0.1 mg IV UD PRN PRN Reason: Opiate Overdose Stop: 09/25/21 23:12 Naloxone HCl (Naloxone Hcl 0.4 Mg/1 Ml Vial/Carp) 0.1 mg IV Q5M PRN PRN Reason: Oversedation/Resp depression Stop: 09/26/21 20:43 Oxycodone/Acetaminophen (Oxycodone/Acetaminophen 5mg/325mg Tab) 1 tab PO Q4H PRN PRN Reason: Pain Stop: 09/15/21 15:34 Last Admin: 09/07/21 09:25 Dose: 1 tab Documented by: Vitamin D (Cholecalciferol 1,000 Units 25 Mcg Tab) 5,000 units PO DAILY [facility] Stop: 09/26/21 08:59 Last Admin: 09/07/21 09:17 Dose: 5,000 units Documented by: (1) Fall Encounter type: initial encounter Qualified Code(s): W19.XXXA - Unspecified fall, initial encounter
[2021-09-07] MEDS: ACETAMINOPHEN 325 MG TAB PO PRN (21:02)
[2021-09-07] MEDS: LORazepam 0.5 MG TAB PO PRN (21:02)
[2021-09-08 06:08] LABS: Basophils # (auto) 0.03 K/uL (0-0.2); Basophils % (auto) 0.3 %; Eosinophils # (auto) 0.11 K/uL (0-0.5); Eosinophils % (auto) 1.2 %; Hematocrit (blood only) 32.2 % (37-47); Hemoglobin 10.5 g/dL (12.0-16.0); Immature Granulocytes # (auto) 0.37 K/uL (0.00-0.02); Immature Granulocytes % (auto) 4.1 %; Lymphocytes # (auto) 1.32 K/uL (1.2-3.4); Lymphocytes % (auto) 14.6 %; Mean Corpuscular Hemoglobin 29.5 pg (25-34); Mean Corpuscular Hgb Conc 32.6 g/dL (32-36); Mean Corpuscular Volume 90.4 fL (80-100); Mean Platelet Volume 9.1 fL (7.4-10.4); Monocytes # (auto) 1.04 K/uL (0.11-0.59); Monocytes % (auto) 11.5 %; Neutrophils # (auto) 6.18 K/uL (1.4-6.5); Neutrophils % (auto) 68.3 %; Platelet Count 468 K/uL (130-400); RDW Coefficient of Variation 15.7 % (11.5-14.5); RDW Standard Deviation 50.4 fL (36.4-46.3); Red Blood Count 3.56 M/uL (4.2-5.4); White Blood Count 9.05 K/uL (4.8-10.8)
[2021-09-08 06:44] LABS: Alanine Aminotransferase 59 U/L (12-78); Albumin Globulin Ratio 0.4 (0.9-2); Alkaline Phosphatase 101 U/L (45-117); Aspartate Aminotransferase 68 U/L (15-37); Bilirubin,Total 1.2 mg/dl (0.2-1); Blood Urea Nitrogen 32 mg/dl (7-18); Calcium 8.6 mg/dl (8.5-10.1); Carbon Dioxide 25 mmol/L (21-32); Chloride 100 mmol/L (98-107); Creatinine Clr Calc Pharmacy 60.8 ml/min; Est GFR (African American) 104.1 ml/min; Est GFR (Non-African American) 89.8 ml/min; Globulin 4.5 gm/dl (2.5-4.0); Glucose 92 mg/dl (70-99); Magnesium 2.4 mg/dl (1.8-2.4); Sodium 131 mmol/L (136-145); Total Protein 6.5 gm/dl (6.4-8.2)
[2021-09-08 06:49] LABS: Troponin I < 0.015 ng/ml (0-0.045)
[2021-09-08] MEDS: amLODIPine BESYLATE 5 MG TAB PO SCH (08:42)
[2021-09-08] MEDS: MULTIVITAMIN TAB PO SCH (08:42)
[2021-09-08] MEDS: ASPIRIN 81 MG ECTAB PO SCH ×2 (08:43→20:14)
[2021-09-08] MEDS: ACETAMINOPHEN 325 MG TAB PO PRN (08:44)
[2021-09-08] MEDS: GABAPENTIN 100 MG CAP PO SCH ×2 (08:45→20:14)
[2021-09-08] MEDS: METOPROLOL TARTRATE 25 MG TAB PO SCH ×2 (08:45→20:15)
[2021-09-08] MEDS: CHOLECALCIFEROL 1,000 UNITS 25 MCG TAB PO SCH (08:46)
[2021-09-08] MEDS: INSULIN ASPART 100 UNITS/ML 3 ML PEN SC SCH ×4 (09:20→21:19)
--- NOTE | 2021-09-08 15:05 | Hospitalist Progress Note ---
Date of Service September 08, 2021 Assessment & Plan (1) Intertrochanteric fracture of left femur: Plan: Following a mechanical fall at home Recent hospitalization with left knee pain, status post injection and physical therapist recommended rehab placement The patient was discharged home with home health nurse and home PT after discussion with the son and as per case management coordinator evaluation. Came back within a few days with a mechanical fall and intertrochanteric frac ture of left femur #. Closed fracture of left hip Secondary to mechanical fall Admitting hip x-ray: Left femoral intertrochanteric fracture, no dislocation. Distal neurovascular status normal Orthopedics consulted: Open reduction and internal fixation of left displaced intertrochanteric hip fracture with a Synthes 235 mm x 11 mm trochanteric fixation nail with a 90 mm spiral blade and a 38 mm distal locking screw by Dr. Coffey on 08/27 SCDs and anticoagulation per orthopedic recommendation -aspirin 81 mg twice daily PT/OT with orthopedics recommendation. Still complains a lot of pain in the left hip Pain in the left lower extremity even with touch-we will try small dose of gabapentin for possible neuropathic pain Pain seems to be under control Will be transferred to [facility] tomorrow at around 12 Pain in the left hip and left lower extremity Secondary to recent fracture and surgery Likely has a component of neuropathic pain Gabapentin has been started-and pain seems to be under control Denies any more pain Continue current pain medication (2) COVID-19: Plan: #. [id number] being vaccinated Patient denies any signs or symptoms suggestive of COVID-19 Admitting CXR negative for any acute finding Patient tested positive for Covid in the ED on 08/26 Patient asymptomatic, on minimal oxygen likely postoperative requirement, continue to monitor, does not qualify for any medications for COVID-19. Continue incentive spirometry while awake, flutter valve Remains asymptomatic of COVID-19 infection Has been requiring very minimal minimal or no oxygen to maintain saturation Saturating normally on room air She has been more than 10 days of positive Covid diagnosis ,we will move her out of isolation tomorrow She can come out of isolation today is the 11th day since Covid is diagnosed and she remains quite asymptomatic She is ready to be discharged-does not require any more isolation and does not require any Covid test prior to discharge tomorrow (3) Fall: Plan: Status post mechanical fall (4) E. coli UTI: (5) PSVT (paroxysmal supraventricular tachycardia): Plan: #. Supraventricular tachycardia #. History of such. #. Electrolytes abnormality #. HTN SVTs with heart rate in 180s on 08/29 at 3:50 PM--> resolved 5:10 PM after dose of 5 mg metoprolol and 6 mg adenosine Follow-up electrolytes after 08/30 event fairly WNL, calcium gluconate replaced, follow-up EKG -->sinus rhythm, cardiology consulted Echo ordered, awaiting. Per cardiology, metoprolol 25 twice daily started 08/29 and home dose of atenolol stopped, held lisinopril 08/30 --> 09/01 Stop lisinopril and start amlodipine 2.5 mg daily instead Continue telemetry, patient in sinus rhythm currently. Maintain gentle hydration as appropriate. Monitor electrolytes and replace as appropriate. Plan: 76-year-old lady with PMH of HTN, paroxysmal PT, HLD, DM2 on oral meds, chronic anemia [baseline around 10], blindness of right eye, osteoporosis and CKD presented 08/26 to our ED secondary to mechanical fall and hurting her left hip. Patient is being managed for the following: #. Mild hyponatremia C/w monitoring. stable. Stop lisinopril and start amlodipine 2.5 mg daily. Sodium remains at 132 #. Constipation Patient has not moved bowel since after surgery Bowel sounds good on examination. Patient not eating enough food --> seems to have improved a little bit. Continue to monitor, bowel regimen Use laxatives. #. Acute blood loss anemia #. Chronic anemia Baseline hemoglobin around 10-11 Admitting hemoglobin dropped from 10.2 to 7.4 Secondary to hip fracture Status post 1 unit 08/27 prior to surgery. Status post another unit 08/29 evening. f/u daily Hb and as needed. Maintain hemoglobin above 8, transfuse for hemoglobin less than 8. Remains stable #. Chronic medical conditions: HTN, HLD, DM, paroxysmal VT Continue with atorvastatin, Switched lisinopril to amlodipine. Hold Metformin. Switched atenolol to metoprolol. Patient on SSI insulin. Continue to monitor. #. Symptomatic pyuria #. E. coli UTI Follow-up urine culture, E. coli UTI pansensitive. Completed course of Rocephin on 08/30. DVT prophylaxisSCDs. Baby aspirin twice daily per orthopedics. DNR. Disposition: Continue PT/OT with orthopedics recommendation while inpatient. Likely need placement, pending evaluation. CM to assist with discharge planning. Patient's son Mr. Art Escobedo, can be reached at [phone]. Discussed with the granddaughter in detail 09/06/2021 Admission and Anticipated Discharge Date Admission Date: August 26, 2021 Subjective 09/02/2021 The patient was seen and examined in telemetry unit and in the Covid room She has been moaning most of the time even with touching the left lower extremity mainly Denies any respiratory symptoms of cough, shortness of breath or wheezing 09/03/2021 The patient was seen and examined in telemetry unit and in the Covid room She has been stable Still complains to have pain in the left lower extremity 09/04/2021 The patient was seen and examined in the medical unit and in the Covid room She remains weak and lethargic and is still moans with pain Has been getting physical therapy Does not require any oxygen at rest 09/05/2021 The patient was seen and examined in telemetry unit and in the Covid room She remains extremely lethargic and is saturating on room air Still complains of pain in the left hip and left lower extremity with movement 09/06/2021 The patient was seen and examined in telemetry unit and in the Covid room Today is one of her best days Has been conversing normally and mentioned that the pain is being controlled reasonably She denies any shortness of breath and her cough 09/07/2021 The patient was seen and examined in telemetry unit and in the Covid room She remains weak but denies any other significant symptoms Her pain is controlled and she does not have any Covid symptoms She can come out of isolation from COVID-19 infection 09/08/2021 The patient was seen and examined in telemetry unit and in the Covid room She remains very weak and lethargic but denies any significant symptoms She has been saturating on room air and does not have any respiratory symptoms secondary to Covid She will be going to [facility] at 12:00 tomorrow Review of Systems Review of Systems: All systems reviewed and are unremarkable except as noted below Musculoskeletal: Pain in the left hip and pain even touching the left lower extremity-has been improving Physical Exam Physical Exam: Lying in bed with constant moaning secondary to pain in the left hip joint Constitutional: well developed, well nourished, + ill appearing and average body habitus Eyes: PERRL, conjunctivae normal, anicteric sclerae ENMT: external ear and nose normal, oropharynx normal Neck: trachea midline, no thyromegaly Respiratory: no respiratory distress and no cough Auscultation: + diminished lung sounds; no crackles and no wheezes Cardiovascular: Rate/Rhythm: regular rate and regular rhythm; not tachycardic Heart Sounds: normal S1 and normal S2; no murmur Extremities: + edema (Trace edema bilaterally) Gastrointestinal (Abdomen): Inspection/Auscultation: normal bowel sounds; abdomen not distended Percussion/Palpation: abdomen soft; abdomen nontender Musculoskeletal: Minimal pain with movement of the left lower extremity Neurologic: Alert, awake and oriented x3. Generally very weak and lethargic Lymphatic: no cervical or axillary lymphadenopathy Results & Data Results & Data ([facility]) Vital Signs (Past 12 Hours) Vital Signs Temp Pulse Resp BP BP Pulse Ox Pulse Ox 09/08/21 10:52 36.8 C 108 H 19 122/88 97 09/08/21 07:44 36.4 C L 107 H 18 169/95 H 94 09/08/21 04:00 96 09/08/21 03:05 36.9 C 88 18 147/93 H 99 Laboratory Results Short CBC 09/08/21 Range/Units 05:24 WBC 9.05 (4.8-10.8) K/uL Hgb 10.5 L (12.0-16.0) g/dL Hct 32.2 L (37-47) % Plt Count 468 H (130-400) K/uL BMP 09/08/21 05:24 Sodium 131 L Potassium 4.0 Chloride 100 Carbon Dioxide 25 BUN 32 H Creatinine 0.55 L Glucose 92 Calcium 8.6 Cardiac Enzymes 09/08/21 Range/Units 05:24 Troponin I < 0.015 (0-0.045) ng/ml Liver Function 09/08/21 Range/Units 05:24 Total Bilirubin 1.2 H (0.2-1) mg/dl AST 68 H (15-37) U/L ALT 59 (12-78) U/L Alkaline Phosphatase 101 (45-117) U/L Albumin 2.0 L (3.4-5.0) gm/dl Medications Administered Current Inpatient Medications Acetaminophen (Acetaminophen 325 Mg Tab) 325 mg PO Q6H PRN PRN Reason: Mild Pain Stop: 09/30/21 00:46 Last Admin: 09/08/21 08:44 Dose: 325 mg Documented by: Amlodipine Besylate (Amlodipine Besylate 5 Mg Tab) 2.5 mg PO QAM [facility] Stop: 10/01/21 13:59 Last Admin: 09/08/21 08:42 Dose: 2.5 mg Documented by: Aspirin (Aspirin 81 Mg Ectab) 81 mg PO BID [facility] Stop: 09/27/21 20:59 Last Admin: 09/08/21 08:43 Dose: 81 mg Documented by: Bisacodyl (Bisacodyl 10 Mg Supp) 10 mg [place] DAILY PRN PRN Reason: Constipation Stop: 09/25/21 23:12 Dextrose (Dextrose 50% 50 Ml Syringe) 25 - 50 ml IV UD PRN; Protocol PRN Reason: Hypoglycemia Protocol Stop: 09/25/21 23:12 Gabapentin (Gabapentin 100 Mg Cap) 100 mg PO BID [facility] Stop: 10/04/21 20:59 Last Admin: 09/08/21 08:45 Dose: 100 mg Documented by: Glucagon (Glucagon For Inj 1 Mg Vial) 1 mg SQ UD PRN; Protocol PRN Reason: Hypoglycemia Protocol Stop: 09/25/21 23:12 Glucose (Glucose 10 Tabs/Tube) 4 - 8 tabs PO UD PRN; Protocol PRN Reason: Hypoglycemia Protocol Stop: 09/25/21 23:12 Glucose (Glucose 40% Gel 15 Gm Tube) 15 - 30 gm PO UD PRN; Protocol PRN Reason: Hypoglycemia Protocol Stop: 09/25/21 23:12 Promethazine HCl 6.25 mg/ (Sodium Chloride) 50.25 mls @ 201 mls/hr IV Q6H PRN PRN Reason: Nausea And Vomiting Stop: 09/25/21 23:12 Insulin Aspart (Insulin Aspart 100 Units/Ml 3 Ml Pen) 0 units SC ACHS [facility] Stop: 09/25/21 23:29 Last Admin: 09/08/21 13:12 Dose: 1 units Documented by: Lorazepam (Lorazepam 0.5 Mg Tab) 0.5 mg PO HS PRN PRN Reason: Anxiety Stop: 10/04/21 19:20 Last Admin: 09/07/21 21:02 Dose: 0.5 mg Documented by: Metoprolol Tartrate (Metoprolol Tartrate 25 Mg Tab) 25 mg PO BID [facility] Stop: 09/28/21 17:24 Last Admin: 09/08/21 08:45 Dose: 25 mg Documented by: Miscellaneous (Carbohydrates For Hypoglycemia ) 15 - 30 gm PO UD PRN PRN Reason: Hypoglycemia Protocol Stop: 09/25/21 23:12 Last Admin: 08/31/21 08:20 Dose: 15 gm Documented by: Morphine Sulfate (Morphine Sulfate 2 Mg/Ml Carp) 2 mg IV Q6H PRN PRN Reason: Pain Stop: 09/12/21 17:33 Last Admin: 09/04/21 21:18 Dose: 2 mg Documented by: Multivitamins (Multivitamin Tab) 1 tab PO DAILY [facility] Stop: 09/26/21 08:59 Last Admin: 09/08/21 08:42 Dose: 1 tab Documented by: Naloxone HCl (Naloxone Hcl 0.4 Mg/1 Ml Vial/Carp) 0.1 mg IV UD PRN PRN Reason: Opiate Overdose Stop: 09/25/21 23:12 Naloxone HCl (Naloxone Hcl 0.4 Mg/1 Ml Vial/Carp) 0.1 mg IV Q5M PRN PRN Reason: Oversedation/Resp depression Stop: 09/26/21 20:43 Oxycodone/Acetaminophen (Oxycodone/Acetaminophen 5mg/325mg Tab) 1 tab PO Q4H PRN PRN Reason: Pain Stop: 09/15/21 15:34 Last Admin: 09/07/21 09:25 Dose: 1 tab Documented by: Vitamin D (Cholecalciferol 1,000 Units 25 Mcg Tab) 5,000 units PO DAILY [facility] Stop: 09/26/21 08:59 Last Admin: 09/08/21 08:46 Dose: 5,000 units Documented by: (1) Fall Encounter type: initial encounter Qualified Code(s): W19.XXXA - Unspecified fall, initial encounter
[2021-09-08] MEDS: LORazepam 0.5 MG TAB PO PRN (22:59)
[2021-09-09] MEDS: ASPIRIN 81 MG ECTAB PO SCH (08:57)
[2021-09-09] MEDS: METOPROLOL TARTRATE 25 MG TAB PO SCH (08:57)
[2021-09-09] MEDS: GABAPENTIN 100 MG CAP PO SCH (08:58)
[2021-09-09] MEDS: CHOLECALCIFEROL 1,000 UNITS 25 MCG TAB PO SCH (08:58)
[2021-09-09] MEDS: MULTIVITAMIN TAB PO SCH (08:58)
[2021-09-09] MEDS: amLODIPine BESYLATE 5 MG TAB PO SCH (08:58)
[2021-09-09] MEDS: oxyCODONE/ACETAMINOPHEN 5mg/325mg TAB PO PRN (09:00)
[2021-09-09] MEDS: INSULIN ASPART 100 UNITS/ML 3 ML PEN SC SCH (09:52)
--- NOTE | 2021-09-09 19:39 | Discharge Summary ---
Date of Service September 09, 2021 Admission HPI Per Admitting Provider History obtained from patient, family, and records. Medical history significant for HTN, Paroxysmal VT, hyperlipidemia, DM2 on oral meds, chronic anemia (baseline hemoglobin of 10). Last confinement 2017 for ambulatory dysfunction secondary to left knee pain. Patient not feeling well the last few days. Fair appetite. No chest pain, no S OB, no cough symptoms. Son with COVID-19 illness. Patient has not received COVID-19 vaccination. Patient remembers feeling lightheaded before tripping on her own feet today causing her to fall down on her left hip. Sharp left hip pain. Patient denies syncope, chest pain, S OB. Unable to get up from the floor. 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 Admission Exam Per Admitting Provider GENERAL: Slightly uncomfortable, no respiratory distress SKIN: Pallor, warm HEENT: Pale palpebral conjunctivae, no ptosis, dry buccal mucosa NECK : Supple, no tenderness CHEST : CTA, no tenderness HEART : Tachycardic, no obvious murmurs ABDOMEN: no distention, nontender EXTREMITIES : No LE swelling, left hip tenderness, no other conspicuous deformities noted NEUROLOGIC : Coherent, no facial asymmetry, no other gross focality Principal Diagnosis Intertrochanteric fracture of left femur Asymptomatic Covid Supraventricular tachycardia Mild hyponatremia Discharge Exam GENERAL: Alert and oriented x3. NAD, on RA. Moaning 2/2 pain vs dementia has improved HEENT: No pallor, no icterus. Pupils equal, round and reactive to light. Oral mucosa moist. NECK: No JVD, no neck masses. HEART: S1 and S2 heard. Regular rate and rhythm. No murmur, no gallop. RESPIRATORY SYSTEM: Normal AP diameter. No accessory muscle use. No wheezing, no crackles. ABDOMEN: Soft, bowel sounds present, nontender, no distention. CENTRAL NERVOUS SYSTEM: Alert and oriented x3. No facial droop. Speech is clear. Obeys simple commands. Moves extremities. EXTREMITIES: No edema, no erythema seen. Left hip with dressing. Discharge Data Allergies Allergy/AdvReac Type Severity Reaction Status Date / Time No Known Allergies Allergy Verified 08/26/21 21:33 Consultations 08/26/21 20:13 ED Decision to Admit Stat 08/26/21 23:13 Consult Orthopedic Surgery Routine 08/29/21 16:32 Consult Cardiology Routine Procedures Performed Operation Date: 08/27/21 10:10 Actual Procedures p Left hip open reduction internal fixation displaced intertrochanteric hip fracture with Synthes 11 mm x 235 mm distally locked trochanteric Nail(Left) (Left) - Frandy Coffey DO Ordered Studies 08/27/21 16:30 FL hip LT 2-3V Routine Hospital Course (1) Intertrochanteric fracture of left femur: (2) COVID-19: (3) Hyponatremia: 76-year-old lady with PMH of HTN, paroxysmal PT, HLD, DM2 on oral meds, chronic anemia [baseline around 10], blindness of right eye, osteoporosis and C KD presented 08/26 to our ED secondary to mechanical fall and hurting her left hip. Patient was managed for the following: #. Supraventricular tachycardia #. History of such. #. Electrolytes abnormality #. HTN SVTs with heart rate in 180s on 08/29 at 3:50 PM--> resolved 5:10 PM after dose of 5 mg metoprolol and 6 mg adenosine Follow-up electrolytes after 08/30 event fairly WNL, calcium gluconate replaced, follow-up EKG -->sinus rhythm, cardiology consulted Per cardiology, metoprolol 25 twice daily started 08/29 and home dose of atenolol stopped, held lisinopril 08/30 --> 09/01 Stop lisinopril and start amlodipine 2.5 mg daily instead Monitored over telemetry, patient in sinus rhythm currently at MS. Electrolytes monitored and replaced as appropriate. #. Mild hyponatremia c/w monitoring. stable. Stop lisinopril and start amlodipine 2.5 mg daily. Patient to get blood test done in 3 to 5 days of discharge to look at sodium level. #. Closed fracture of left hip Secondary to mechanical fall Admitting hip x-ray: Left femoral intertrochanteric fracture, no dislocation. Distal neurovascular status normal Orthopedics consulted: Open reduction and internal fixation of left displaced intertrochanteric hip fracture with a Synthes 235 mm x 11 mm trochanteric fixation nail with a 90 mm spiral blade and a 38 mm distal locking screw by Dr. Waters 08/27 SCDs and anticoagulation per orthopedic recommendation -aspirin 81 mg twice daily PT/OT with orthopedics recommendation. Patient discharged with pain medications and aspirin for 23 more days for blood thinner ( per orthopedics recommendation) #. Acute blood loss anemia #. Chronic anemia Baseline hemoglobin around 08-03 Admitting hemoglobin dropped from 10.2 to 7.4 Secondary to hip fracture Status post 3 unit while inpatient, hemoglobin stable. #. COVID-19 Patient denies any signs or symptoms suggestive of COVID-19 Admitting CXR negative for any acute finding Patient tested positive for Covid in the ED on 08/26 Patient remained asymptomatic, off of isolation. #. Chronic medical conditions: HTN, HLD, DM, paroxysmal VT Continue with atorvastatin, Switched lisinopril to amlodipine. Hold Metformin. Switched atenolol to metoprolol. Patient on SSI insulin. Continue to monitor. #. Symptomatic pyuria #. E. coli UTI Follow-up urine culture, E. coli UTI pansensitive. Completed course of Rocephin on 08/30. DVT prophylaxisSCDs. Baby aspirin twice daily per orthopedics. DNR. Patient discharged to SNF with following instruction at the point of discharge: Follow-up with your primary care physician within a week time. Have your blood work [BMP] done to follow-up with sodium level in 5 days upon discharge. Have the results forwarded to your PCP. Your atenolol has been discontinued and replaced with metoprolol. Your lisinopril has been discontinued due to ongoing hyponatremia, and has been replaced with amlodipine. Take aspirin 81 mg twice a day for 23 more days and then stop. Take medications as prescribed Maintain orthopedic follow-up in 10 to 14 days upon discharge. Your Covid was a symptomatic while in hospital, you are off of isolation for Covid. You have been given Percocet for 3 days as needed basis, maintain follow-up with your primary care physician for ongoing pain management prescription if needed. Total Time Total Time Spent Total Time Spent (In Minutes): 40 Discharge Plan Discharge Items Patient Disposition: Transfer [facility] Reason For Visit: TACHY, HIP FX Discharge Diagnosis: Intertrochanteric fracture of left femur Asymptomatic Covid Supraventricular tachycardia Mild hyponatremia Activity: Per Instructions section Weightbearing: Left toe touch Weightbearing Comment: with walker or crutches Non-emergency contact: Primary Care Provider and Surgeon Call non-emergency contact if: you have any medication questions, your symptoms worsen, your pain is not controlled and your temperature is above 101 Follow-up/Referrals: Frandy Coffey DO [Surgeon] - (follow up in 10-14 days from the day of surgery for wound check.) Kit Vincent MD [Primary Care Provider] - Danna Chavis CRNP [Nurse Practitioner] - (Please follow up in 6 weeks for osteoporosis check ) Diet: Carb Consistent or DM2 Addtl Attending Provider Instructions: Follow-up with your primary care physician within a week time. Have your blood work [BMP] done to follow-up with sodium level in 5 days upon discharge. Have the results forwarded to your PCP. Your atenolol has been discontinued and replaced with metoprolol. Your lisinopril has been discontinued due to ongoing hyponatremia, and has been replaced with amlodipine. Take aspirin 81 mg twice a day for 23 more days and then stop. Take medications as prescribed Maintain orthopedic follow-up in 10 to 14 days upon discharge. Your Covid was a symptomatic while in hospital, you are off of isolation for Covid. You have been given Percocet for 3 days as needed basis, maintain follow-up with your primary care physician for ongoing pain management prescription if needed. 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 You are to ambulate with a walker or crutches for approximately 6 weeks. B. You are TOE TOUCH WEIGHT BEARING on your operative lower extremity for at least 6 weeks. C. Wear low heeled shoes with non-slip soles D. Be sure that your floors are free of things that could trip you throw rugs, electrical cords, and small objects. Avoid wet and waxed floors, especially with crutches/walker/cane. E. Try to walk several times a day with rest periods between. F. You may shower 48 hours after surgery and get the incision area wet, but DO NOT soak or submerge incision area in water. (No baths, swimming pools, hot tubs) G. You may have a large, band-aid like dressing over your incision (Aquacel). This will remain on your incision for 7 days, and then can be removed. You CAN shower with this on. If incision is leaking through the dressing, please call the office . H. Do NOT apply soap or any ointment/lotions directly over incision. I. You may use ice as needed to operative site. SPECIAL CARE INSTRUCTIONS: VERY IMPORTANT TO READ AND REVIEW A. You may be at risk for phlebitis or blood clots. a. Wear surgical stockings (DARY hose) for 2 weeks after surgery to improve circulation and reduce swelling. b. Take ASPIRIN 81 mg twice daily for 4 weeks or as directed. This is your blood thinner. c. If you are on Coumadin- you will have daily/weekly blood work to monitor your levels. This will be done by either your family phy sician/string studies director (if you are on Coumadin chronically) versus your orthopedic surgeon. Expect a phone call the day of or the day after your blood work is drawn to adjust your dose accordingly. B. There are a few signs you need to watch for after you are home. Call [facility] at [phone] if you experience any of the following: a. If you have a temperature of 101 degrees or higher. b. Sudden increase in pain in your hip not relieved by rest or pain medication. c. Any fluid or drainage from the incision; redness of the incision. d. Shortness of breath or chest pain. C. Pain Medication: a. You will be prescribed pain medication upon discharge that should last till your first post-operative appointment. b. If you experience nausea and/or skin rash, discontinue this medication and contact our office for an alternative medication. c. Caution- narcotic pain medication can cause constipation. FOLLOW UP VISIT: Please call [facility] at [phone] to schedule a follow up appointment 10-14 days from the date of your surgery date. Pending Studies at Discharge: No Stand-Alone Forms: My [facility] Skilled Items Patient informed of condition?: Yes DNR: Yes Discharge Level of Care: Skilled Communicable Disease: No Discharge Prognosis: Stable Lines: None Urinary Catheter: No Medications and DC Order Prescriptions: New amlodipine [Norvasc] 5 mg Tablet 2.5 mg PO QAM Qty: 15 RF: 0 metoprolol tartrate 25 mg Tablet 25 mg PO BID Qty: 60 RF: 0 aspirin 81 mg Tablet,Delayed Release (Dr/Ec) 81 mg PO BID 23 Days Qty: 46 RF: 0 gabapentin 100 mg Capsule 100 mg PO BID Qty: 60 RF: 0 oxycodone-acetaminophen [Percocet] 5-325 mg Tablet 1 tab PO Q6H PRN (Reason: pain) 3 Days Qty: 12 RF: 0 Continued metformin 500 mg Tablet 500 mg PO BID RF: 0 cholecalciferol (vitamin D3) [Vitamin D3] 5,000 unit Tablet 5,000 unit PO DAILY RF: 0 magnesium oxide 400 mg magnesium Tablet 400 mg PO BID RF: 0 atorvastatin 40 mg tablet 40 mg PO DAILY RF: 0 multivitamin Tablet 1 tab PO DAILY RF: 0 alendronate 70 mg tablet 70 mg PO WK RF: 0 cyanocobalamin (vitamin B-12) 1,000 mcg Tablet 1,000 mcg PO DAILY RF: 0 Discontinued lisinopril 5 mg tablet 5 mg PO DAILY RF: 0 atenolol 25 mg tablet 12.5 mg PO DAILY RF: 0 Discharge Orders: Discharge Order (Routine); Ordered 09/09/21 Ordered By: Yudelka Thorpe Admission Data Admit Date/Time: 08/26/21 21:28 Attending Provider: Yudelka Thorpe Admit Provider: Stalin Samayoa Primary Care Provider: Kit Vincent Other Providers: [facility] ; Yudelka Thorpe ; Elliot Arredondoille ; Stalin Samayoa ; Frandy Coffey ; Balwinder Dahl Other Interventions: Discharge Summary Assessment (RN) Last Done: 09/09/21 11:57
== END 2021-09-09 12:38 | DRG 480 ==
LOC: ED 17:53 → 2S 21:28 → SUATTDRO 21:28 → 2S 22:47

== ENCOUNTER 2023-08-05 22:39 | Inpatient (IN) ==
[2023-08-05] MEDS ORDERED: ONDANSETRON INJ 2 MG/ML 2 ML VIAL IV STA (23:28)
[2023-08-05] MEDS ORDERED: fentaNYL citrate PF 100 MCG/2 ML VIAL IV STA (23:28)
--- NOTE | 2023-08-06 01:05 | Emergency Department Note ---
Impression & Plan Fall, Acute kidney injury, Acute dehydration Patient will be admitted to the [facility]. ED Provider Note NAME: МАРИЯ SCANLON AGE: 78 SEX: Female INFORMANT: Patient ED PROVIDER(S): Rosa Segura DO CHIEF COMPLAINT: Right hip pain PLAN: Disposition: Admit to the [facility] MEDICAL DECISION MAKING: This is an 78-year-old female patient who slid out of a chair onto the floor and now complains of right hip pain. On physical exam, the patient has moderate pain with range of motion to the right hip and it appeared to be slightly externally rotated and shortened on exam. Patient was given IV fentanyl for pain and Zofran to prevent nausea. However, there was no bony abnormality appreciated on plain films so she went for CT scan of the pelvis and hip which also confirmed no fracture. On laboratory assessment, the patient has significant evidence of IDALIA with an elevated BUN and creatinine. She does appear to be quite dehydrated on physical exam. She was moderately tachycardic and at times hypotensive. The patient was bolused with IV normal saline solution. She was encouraged to drink clear liquids. Her blood pressure did come up slightly but her heart rate remains somewhat elevated. Care/management discussed with: clinical services manager Level of care consideration(s): After review of the information above and other included data, I feel the patient requires escalation of care to admission. Triage Nursing notes: Reviewed and agree them. Vital Signs: reviewed and remarkable for hypotension and tachycardia Additional History obtained from: The patient's son's girlfriend whom she lives with Differential Diagnosis: Hip fracture, pelvis fracture, right lower extremity contusion Diagnostics, independently interpreted by me: ECG: Sinus tachycardia at a rate of [address] segment elevation or signs of ischemia. There is no ectopy. Cardiac Monitoring: Sinus tachycardia at 112 Imaging studies: Right hip x-ray: No acute fracture identified. There is moderate degenerative changes noted. CT scan of the pelvis and hip: No acute fracture identified ED treatment provided: color television console monitor Twelve-lead EKG IV fentanyl IV Zofran IV normal saline bolus HPI: 78 year old Female arrives for evaluation of right hip pain. Patient slid out of a chair onto the floor injuring her right hip. She remained there until family members came home this evening. The family explains that there has been some slight increased confusion tonight and believe this may be secondary to a recently diagnosed UTI for which she is taking Bactrim. PAST MEDICAL HISTORY: See Below, PAST SURGICAL HISTORY: See Below, SOCIAL HISTORY: Patient lives with her son and his girlfriend., She does not smoke HOME MEDICATIONS: See list ALLERGIES: None VITALS: See Below PHYSICAL EXAMINATION: HEENT: Head - normocephalic and atraumatic. Pupils are equal, round, and reactive to light. Extraocular eye muscles are intact and sclera are anicteric. Nose -dry nasal mucosa without evidence of trauma or discharge. Mouth -dry buccal mucosa with no trauma to the teeth or signs of malocclusion. Neck: The neck is supple and there is no pain to palpation over the posterior cervical spine and no obvious step-offs or deformities. There is no JVD or tracheal deviation. Chest: There are no signs of deformities, contusions or abrasions to the chest w all. There is no obvious crepitus or paradoxical chest rise. Heart: Tachycardic rate and regular rhythm. There is a normal S1 and S2 with no murmurs, clicks, or gallops appreciated. Lungs: Clear to auscultation bilaterally with no wheezes, rales, or rhonchi. Abdomen: Soft, completely nontender, nondistended, with good bowel sounds. There is no sign of trauma such as contusions, abrasions or penetrations. There are no palpable pulsatile masses or hepatosplenomegaly. There is no guarding, rigidity, or rebound noted. Pelvis: Stable to rock and compression. Extremities: No obvious trauma, deformities, contusions, or edema. There are easily palpable peripheral pulses. Skin: Extremely dry with poor turgor. Neuro: The patient is awake and alert and easily able to follow commands. Muscle strength is 5 out of 5 in all 4 extremities. Otherwise, neuro exam is unremarkable. ED course: The patient was evaluated in room C2. A complete history and physical was performed. An IV lock was initiated and labs were drawn as above. Patient was given a dose of IV fentanyl and IV Zofran for the pain in the right hip and pelvis. Patient had plain films of her right hip which showed no obvious fracture. An order was placed for continuous cardiac monitoring. The patient was in a sinus tachycardia at 112. Patient had a twelve-lead EKG as described above. Patient went for CT scan of the pelvis and hip. On physical exam, the patient appeared to be dehydrated and was given a bolus of IV normal saline solution. She remained tachycardic and hypotensive at times was given a second bolus of IV normal saline solution. She was also thirsty and was encouraged to drink. I reviewed the results of the laboratory and CT findings with the patient. In comparison to previous laboratory test, the patient has significant acute kidney injury and requires further inpatient care and treatment. Past Med/Surg History Medical History Anemia Blindness of right eye CKD (chronic kidney disease), stage III COVID-19 DM type 2 (diabetes mellitus, type 2) Dyslipidemia Hypertension Osteoporosis Paroxysmal ventricular tachycardia Syncope Surgical History H/O colonoscopy "2012- diverticulosis" H/O dilation and curettage H/O umbilical hernia repair History of cataract surgery Social History Smoking Status: Never smoker Hx Alcohol Use: No Hx Substance Use: No Preferred Language: Citizen Of [place] Communication Ability: Effective Coordinating Producer Required: No Beliefs That Will Affect Care: None marital status: / Current Living Situation: Family Current Living Situation Comment: lives with ranjeet Cordova How many Children do You have: 1 Feels Safe at Home: Yes Assistive Devices: Walker and Wheelchair Allergies Allergies Allergy/AdvReac Type Severity Reaction Status Date / Time No Known Allergies Allergy Verified 11/19/22 10:58 Home Meds Home Medications Medication Instructions Recorded Confirmed magnesium oxide 400 mg PO BID 09/07/18 07/09/23 alendronate 70 mg tablet 70 mg PO WK 08/26/21 07/09/23 atorvastatin 40 mg tablet 40 mg PO DAILY 08/26/21 07/09/23 cyanocobalamin (vitamin B-12) 1,000 mcg PO DAILY 08/26/21 07/09/23 1,000 mcg tablet cholecalciferol (vitamin D3) 25 25 mcg PO DAILY 07/09/23 07/09/23 mcg (1,000 unit) tablet (Vitamin D3) gabapentin 100 mg capsule 100 mg PO DAILY 07/09/23 07/09/23 ketoconazole 2 % topical cream 1 applic topical BID 07/09/23 07/09/23 multivitamin 1 tab PO DAILY 07/09/23 07/09/23 Previous Rx's Medication Instructions Recorded metoprolol succinate 25 mg 12.5 mg PO QAM #30 tabs 07/13/23 tablet,extended release 24 hr Results & Data (ED) Vital Signs Vital Signs - 24 hr 08/05/23 22:51 08/06/23 01:08 08/06/23 00:07 Temperature 37.1 C Temperature Source Oral Pulse Rate 109 H 108 H 103 H Pulse Rate from SpO2 Sensor 103 H Respiratory Rate 20 23 Blood Pressure 123/104 H Blood Pressure Mean 110 Pulse Oximetry 98 96 Sepsis Recent Fever Within 48 Hours No Sepsis New/Unexplained Change in Mental Status N/A Sepsis Action Taken by Nursing No Action Required 08/06/23 00:10 08/06/23 00:20 08/06/23 00:30 Temperature Temperature Source Pulse Rate 106 H 113 H 108 H Pulse Rate from SpO2 Sensor 109 H 112 H 108 H Respiratory Rate 23 24 21 Blood Pressure Blood Pressure Mean Pulse Oximetry 96 97 97 Sepsis Recent Fever Within 48 Hours Sepsis New/Unexplained Change in Mental Status Sepsis Action Taken by Nursing 08/06/23 00:40 08/06/23 00:50 08/06/23 01:00 Temperature Temperature Source Pulse Rate 111 H 107 H 107 H Pulse Rate from SpO2 Sensor 111 H 106 H 108 H Respiratory Rate 19 21 22 Blood Pressure Blood Pressure Mean Pulse Oximetry 96 95 94 Sepsis Recent Fever Within 48 Hours Sepsis New/Unexplained Change in Mental Status Sepsis Action Taken by Nursing 08/06/23 01:10 08/06/23 01:28 08/06/23 01:28 Temperature Temperature Source Pulse Rate 108 H 112 H Pulse Rate from SpO2 Sensor 108 H Respiratory Rate 21 26 H Blood Pressure 130/97 Blood Pressure Mean 103 Pulse Oximetry 95 Sepsis Recent Fever Within 48 Hours Sepsis New/Unexplained Change in Mental Status Sepsis Action Taken by Nursing 08/06/23 01:30 08/06/23 01:36 08/06/23 01:36 Temperature Temperature Source Pulse Rate 114 H 136 H Pulse Rate from SpO2 Sensor Respiratory Rate 23 18 Blood Pressure 99/64 L Blood Pressure Mean 71 Pulse Oximetry Sepsis Recent Fever Within 48 Hours Sepsis New/Unexplained Change in Mental Status Sepsis Action Taken by Nursing 08/06/23 01:40 08/06/23 01:50 08/06/23 02:00 Temperature Temperature Source Pulse Rate 109 H 108 H Pulse Rate from SpO2 Sensor 109 H 109 H Respiratory Rate 22 18 Blood Pressure 90/61 L Blood Pressure Mean 67 Pulse Oximetry 98 97 Sepsis Recent Fever Within 48 Hours Sepsis New/Unexplained Change in Mental Status Sepsis Action Taken by Nursing 08/06/23 02:00 08/06/23 02:10 08/06/23 02:20 Temperature Temperature Source Pulse Rate 109 H 114 H 113 H Pulse Rate from SpO2 Sensor 110 H 114 H 112 H Respiratory Rate 22 21 23 Blood Pressure Blood Pressure Mean Pulse Oximetry 97 97 97 Sepsis Recent Fever Within 48 Hours Sepsis New/Unexplained Change in Mental Status Sepsis Action Taken by Nursing 08/06/23 02:30 08/06/23 02:30 08/06/23 02:40 Temperature Temperature Source Pulse Rate 114 H 114 H Pulse Rate from SpO2 Sensor 113 H 117 H Respiratory Rate 20 17 Blood Pressure 106/54 L Blood Pressure Mean 71 Pulse Oximetry 96 95 Sepsis Recent Fever Within 48 Hours Sepsis New/Unexplained Change in Mental Status Sepsis Action Taken by Nursing 08/06/23 02:50 08/06/23 03:00 08/06/23 03:00 Temperature Temperature Source Pulse Rate 111 H 108 H Pulse Rate from SpO2 Sensor 110 H 109 H Respiratory Rate 23 19 Blood Pressure 86/66 L Blood Pressure Mean 77 Pulse Oximetry 94 95 Sepsis Recent Fever Within 48 Hours Sepsis New/Unexplained Change in Mental Status Sepsis Action Taken by Nursing 08/06/23 03:10 08/06/23 03:11 08/06/23 03:11 Temperature Temperature Source Pulse Rate 110 H 111 H Pulse Rate from SpO2 Sensor 110 H 110 H Respiratory Rate 22 21 Blood Pressure 112/58 L Blood Pressure Mean 77 Pulse Oximetry 94 96 Sepsis Recent Fever Within 48 Hours Sepsis New/Unexplained Change in Mental Status Sepsis Action Taken by Nursing 08/06/23 03:20 08/06/23 03:30 08/06/23 03:40 Temperature Temperature Source Pulse Rate 118 H 117 H 113 H Pulse Rate from SpO2 Sensor Respiratory Rate 23 22 24 Blood Pressure Blood Pressure Mean Pulse Oximetry Sepsis Recent Fever Within 48 Hours Sepsis New/Unexplained Change in Mental Status Sepsis Action Taken by Nursing 08/06/23 03:50 08/06/23 03:59 08/06/23 04:00 Temperature Temperature Source Pulse Rate 111 H 109 H Pulse Rate from SpO2 Sensor Respiratory Rate 21 22 Blood Pressure 107/61 Blood Pressure Mean 68 Pulse Oximetry Sepsis Recent Fever Within 48 Hours Sepsis New/Unexplained Change in Mental Status Sepsis Action Taken by Nursing Laboratory Data 08/06/23 00:46 08/06/23 00:46 Lab Results 08/06/23 08/06/23 08/06/23 Range/Units 00:46 00:46 00:46 WBC 15.12 H (4.8-10.8) K/ul RBC 3.27 L (4.20-5.40) M/uL Hgb 10.6 L (12.0-16.0) g/dl Hct 32.2 L (37.0-47.0) % MCV 98.5 (80.0-100.0) fL MCH 32.4 (25.0-34.0) pg MCHC 32.9 (32.0-36.0) g/dL RDW Std Deviation 47.3 H (36.4-46.3) fL RDW Coeff of Julio 13.2 (11.5-14.5) % Plt Count 162 (130-400) K/uL MPV 11.3 (9.4-12.4) fL Immature Gran % (Auto) 1.0 % Neut % (Auto) 92.2 % Lymph % (Auto) 2.2 % Tompkins % (Auto) 4.3 % Eos % (Auto) 0.1 % Baso % (Auto) 0.2 % Neut # (Auto) 13.93 H (1.40-6.50) K/uL Lymph # (Auto) 0.34 L (1.20-3.40) K/uL Tom[place]kins # (Auto) 0.65 H (0.11-0.59) K/uL Eos # (Auto) 0.02 (0.00-0.50) K/uL Baso # (Auto) 0.03 (0.00-0.20) K/uL Immature Gran # (Auto) 0.15 (0.01-0.20) K/uL Dohle Bodies 1+ PT Cancelled INR Cancelled APTT Cancelled PTT Ratio Cancelled Sodium 135 L (136-145) mmol/L Potassium 5.1 (3.5-5.1) mmol/L Chloride 103 (98-107) mmol/L Carbon Dioxide 22 (21-32) mmol/L Anion Gap 10 (3-11) BUN 60 H (6-23) mg/dl Creatinine 1.97 H (0.6-1.2) mg/dl Est Cr Clr Drug Dosing 15.5 ml/min Est GFR ( Amer) 27.1 ml/min Est GFR (Non-Af Amer) 23.4 ml/min BUN/Creatinine Ratio 30.5 H (10-20) Glucose 94 (70-99(Fasting)) mg/dl Calcium 9.2 (8.6-10.3) mg/dl Total Bilirubin 0.9 (0.2-1.0) mg/dl AST 456 H (13-39) U/L ALT 411 H (7-52) U/L Alkaline Phosphatase 117 H (34-104) U/L Total Protein 7.1 (6.0-8.3) gm/dl Albumin 3.7 (3.4-5.0) gm/dl Globulin 3.4 (2.5-4.0) gm/dl Albumin/Globulin Ratio 1.1 (0.9-2) Urine Color Urine Appearance (Clear) Urine pH (4.5-7.5) Ur Specific [place] (1.000-1.030) Urine Protein (Negative) Urine Glucose (UA) (Negative) Urine Ketones (Negative) Urine Blood (Negative) Urine Nitrite (Negative) Urine Bilirubin (Negative) Urine Urobilinogen (Negative) Ur Leukocyte Esterase (Negative) Urine WBC (Auto) (0-5) /hpf Urine RBC (Auto) (0-4) /hpf U Hyaline Cast (Auto) (0-5) /lpf U Epithel Cells (Auto) (0-5) /lpf Urine Bacteria (Auto) (Negative) Urine Yeast 08/06/23 08/06/23 Range/Units 02:28 02:36 WBC (4.8-10.8) K/ul RBC (4.20-5.40) M/uL Hgb (12.0-16.0) g/dl Hct (37.0-47.0) % MCV (80.0-100.0) fL MCH (25.0-34.0) pg MCHC (32.0-36.0) g/dL RDW Std Deviation (36.4-46.3) fL RDW Coeff of Julio (11.5-14.5) % Plt Count (130-400) K/uL MPV (9.4-12.4) fL Immature Gran % (Auto) % Neut % (Auto) % Lymph % (Auto) % [place] % (Auto) % Eos % (Auto) % Baso % (Auto) % Neut # (Auto) (1.40-6.50) K/uL Lymph # (Auto) (1.20-3.40) K/uL [place] # (Auto) (0.11-0.59) K/uL Eos # (Auto) (0.00-0.50) K/uL Baso # (Auto) (0.00-0.20) K/uL Immature Gran # (Auto) (0.01-0.20) K/uL Dohle Bodies PT 11.4 INR 1.0 APTT < 20.0 L PTT Ratio 0.7 Sodium (136-145) mmol/L Potassium (3.5-5.1) mmol/L Chloride (98-107) mmol/L Carbon Dioxide (21-32) mmol/L Anion Gap (3-11) BUN (6-23) mg/dl Creatinine (0.6-1.2) mg/dl Est Cr Clr Drug Dosing ml/min Est GFR ( Amer) ml/min Est GFR (Non-Af Amer) ml/min BUN/Creatinine Ratio (10-20) Glucose (70-99(Fasting)) mg/dl Calcium (8.6-10.3) mg/dl Total Bilirubin (0.2-1.0) mg/dl AST (13-39) U/L ALT (7-52) U/L Alkaline Phosphatase (34-104) U/L Total Protein (6.0-8.3) gm/dl Albumin (3.4-5.0) gm/dl Globulin (2.5-4.0) gm/dl Albumin/Globulin Ratio (0.9-2) Urine Color Dark Yellow Urine Appearance Cloudy A (Clear) Urine pH 6.0 (4.5-7.5) Ur Specific [place] 1.018 (1.000-1.030) Urine Protein 2+ H (Negative) Urine Glucose (UA) Negative (Negative) Urine Ketones Trace H (Negative) Urine Blood 2+ H (Negative) Urine Nitrite Negative (Negative) Urine Bilirubin Negative (Negative) Urine Urobilinogen Negative (Negative) Ur Leukocyte Esterase 3+ H (Negative) Urine WBC (Auto) >30 H (0-5) /hpf Urine RBC (Auto) 0-4 (0-4) /hpf U Hyaline Cast (Auto) 1-5 (0-5) /lpf U Epithel Cells (Auto) 10-20 H (0-5) /lpf Urine Bacteria (Auto) Negative (Negative) Urine Yeast Not Reportable Administered Medications Discontinued Medications Fentanyl Citrate (Fentanyl Citrate Pf 100 Mcg/2 Ml Vial) 50 mcg IV NOW STA Stop: 08/05/23 23:29 Last Admin: 08/06/23 00:06 Dose: 50 mcg Documented By: CASIE Sodium Chloride (Nss) 500 mls @ 999 mls/hr IV .Q31M ONE Stop: 08/06/23 03:00 Last Infusion: 08/06/23 03:14 Dose: 0 mls/hr Documented By: Admin: 08/06/23 02:43 Dose: 999 mls/hr Documented By: CASIE Sodium Chloride (Nss) 500 mls @ 999 mls/hr IV .Q31M ONE Stop: 08/06/23 03:37 Last Infusion: 08/06/23 03:59 Dose: 0 mls/hr Documented By: Admin: 08/06/23 03:28 Dose: 999 mls/hr Documented By: CASIE Ondansetron HCl (Ondansetron Inj 2 Mg/Ml 2 Ml Vial) 4 mg IV NOW STA Stop: 08/05/23 23:29 Last Admin: 08/06/23 00:05 Dose: 4 mg Documented By: CASIE Imaging Data Radiologist's Impression: Pelvis CT 08/06/23 00:56 Exam(s): CT PELVIS Without Contrast EXAM: CT Pelvis Without Intravenous Contrast CLINICAL HISTORY: eval right elizabeth pelvis and hip for fracture. TECHNIQUE: Axial computed tomography images of the pelvis without intravenous contrast. CTDI is 11.68 mGy and DLP is 348.25 mGy-cm. Automated exposure control was utilized for the study. A dose lowering technique was utilized adhering to the principles of ALARA. 3D reconstructed images were created and reviewed. COMPARISON: CT abdomen and pelvis dated 07/11/2023. The pelvic bones are stable without acute traumatic injury or alteration from the previous examination. Asymmetric joint space narrowing involving the right hip is identified. FINDINGS: Bones/joints: Prior ORIF of the proximal left femur is noted. Stable loss of height involving the L5 vertebral body with grade 1 anterolisthesis of L5 on S1. No acute fracture. No dislocation. Soft tissues: Unremarkable. Bladder: Unremarkable. No stones. IMPRESSION: No acute osseous traumatic injury involving the pelvis. No alteration from the previous examination. Electronically signed by: Marco Antonio Puga MD 08/06/23 02:58 AM Discharge Plan Visit Data Chief Complaint: Hip Pain Stated Complaint: FALL, HIP PAIN ED Provider: Rosa Segura Discharge Problem: Fall, Acute kidney injury, Acute dehydration Forms Stand Alone Forms: My [facility] [email or web address] Prescriptions Prescriptions: No Action magnesium oxide 400 mg magnesium Tablet 400 mg PO BID gabapentin 100 mg capsule 100 mg PO DAILY cholecalciferol (vitamin D3) [Vitamin D3] 25 mcg (1,000 unit) Tablet 25 mcg PO DAILY multivitamin Tablet,Chewable 1 tab PO DAILY ketoconazole 2 % Cream 1 applic TOPICAL BID Rx Instructions: apply to rash for 14 days start 06/29/23 end 07/13/23 metoprolol succinate 25 mg Tablet Extended Release 24 Hr 12.5 mg PO QAM Qty: 30 0RF atorvastatin 40 mg tablet 40 mg PO DAILY alendronate 70 mg tablet 70 mg PO WK Rx Instructions: TAKE THIS MED ONCE A WEEK WITH 8 ONCES OF WATER, 30 MINUTES BEFORE THE FIRST MEAL OF THE DAY. cyanocobalamin (vitamin B-12) 1,000 mcg Tablet 1,000 mcg PO DAILY Referrals Referrals: Kit Vincent MD [Primary Care Provider] -
[2023-08-06 02:30] LABS: Albumin Level 3.7 gm/dl (3.4-5.0); Bilirubin,Total 0.9 mg/dl (0.2-1.0); Calcium 9.2 mg/dl (8.6-10.3); Potassium 5.1 mmol/L (3.5-5.1)
[2023-08-06] MEDS ORDERED: SODIUM CHLORIDE 0.9% 500 ML IV ONE ×2 (02:30→03:07)
[2023-08-06 02:36] LABS: Albumin Globulin Ratio 1.1 (0.9-2); BUN Creatinine Ratio 30.5 (10-20); Creatinine Clr Calc Pharmacy 15.5 ml/min; Est GFR (African American) 27.1 ml/min; Est GFR (Non-African American) 23.4 ml/min; Globulin 3.4 gm/dl (2.5-4.0); Total Protein 7.1 gm/dl (6.0-8.3)
[2023-08-06 02:45] LABS: Appearance Urine Cloudy (Clear); Bacteria Urine Automated Negative (Negative); Bilirubin Urine Negative (Negative); Blood Urine 2+ (Negative); Color Urine Dark Yellow; Glucose Urine UA Negative (Negative); Ketones Urine Trace (Negative); Leukocyte Esterase Urine 3+ (Negative); Nitrite Urine Negative (Negative); Protein Urine 2+ (Negative); RBC Urine Automated 0-4 /hpf (0-4); Specific Gravity Urine 1.018 (1.000-1.030); Urobilinogen Urine Negative (Negative); WBC Urine Automated >30 /hpf (0-5)
[2023-08-06 02:49] LABS: Basophils # (auto) 0.03 K/uL (0.00-0.20); Basophils % (auto) 0.2 %; Dohle Bodies 1+; Eosinophils # (auto) 0.02 K/uL (0.00-0.50); Eosinophils % (auto) 0.1 %; Hematocrit (blood only) 32.2 % (37.0-47.0); Hemoglobin 10.6 g/dl (12.0-16.0); Immature Granulocytes # (auto) 0.15 K/uL (0.01-0.20); Lymphocytes # (auto) 0.34 K/uL (1.20-3.40); Lymphocytes % (auto) 2.2 %; Mean Corpuscular Hemoglobin 32.4 pg (25.0-34.0); Mean Corpuscular Hgb Conc 32.9 g/dL (32.0-36.0); Mean Corpuscular Volume 98.5 fL (80.0-100.0); Mean Platelet Volume 11.3 fL (9.4-12.4); Monocytes # (auto) 0.65 K/uL (0.11-0.59); Monocytes % (auto) 4.3 %; Neutrophils # (auto) 13.93 K/uL (1.40-6.50); Neutrophils % (auto) 92.2 %; Platelet Count 162 K/uL (130-400); RDW Coefficient of Variation 13.2 % (11.5-14.5); RDW Standard Deviation 47.3 fL (36.4-46.3); Red Blood Count 3.27 M/uL (4.20-5.40); White Blood Count 15.12 K/ul (4.8-10.8)
--- NOTE | 2023-08-06 02:59 | CT Scan Report ---
Exam(s): CT PELVIS Without Contrast EXAM: CT Pelvis Without Intravenous Contrast CLINICAL HISTORY: eval right elizabeth pelvis and hip for fracture. TECHNIQUE: Axial computed tomography images of the pelvis without intravenous contrast. CTDI is 11.68 mGy and DLP is 348.25 mGy-cm. Automated exposure control was utilized for the study. A dose lowering technique was utilized adhering to the principles of ALARA. 3D reconstructed images were created and reviewed. COMPARISON: CT abdomen and pelvis dated 07/11/2023. The pelvic bones are stable without acute traumatic injury or alteration from the previous examination. Asymmetric joint space narrowing involving the right hip is identified. FINDINGS: Bones/joints: Prior ORIF of the proximal left femur is noted. Stable loss of height involving the L5 vertebral body with grade 1 anterolisthesis of L5 on S1. No acute fracture. No dislocation. Soft tissues: Unremarkable. Bladder: Unremarkable. No stones. IMPRESSION: No acute osseous traumatic injury involving the pelvis. No alteration from the previous examination. Electronically signed by: Marco Antonio Puga MD 08/06/23 02:58 AM
[2023-08-06 03:33] LABS: Partial Thromboplastin Ratio 0.7; Prothrombin Time 11.4 Seconds (9.0-12.0)
[2023-08-06 04:10] LABS: Partial Thromboplastin Time < 20.0 Seconds (21.0-31.0)
--- NOTE | 2023-08-06 10:01 | History & Physical Report ---
Date of Service August 06, 2023 Assessment & Plan (1) Fall: Plan: 78-year-old female with past med significant for type 2 diabetes, hyperlipidemia, chronic rhinitis, hypertension, SVT, history of uterine prolapse, chronic kidney stage II, osteoporosis, who lives at home with her son and his girlfriend and ambulates with a walker was brought in because of fall. Fall UTI IDALIA Possible dehydration Pelvic CT okay we will follow up with imaging studies PT OT when stable UTI Rocephin We will follow cultures IDALIA Gentle fluids Avoid nephrotoxic agents We will follow repeat labs Diabetes metformin was DC'd last admission because of low GFR Follow HbA1c levels Hypertension Metoprolol Last admission amlodipine, lisinopril and metoprolol dose decreased because of hypotension We will monitor History of SVT On metoprolol Hyperlipidemia Statin DVT prophylaxis Heparin subcu Disposition Medical floor Full code History of Present Illness Chief Complaint: Fall Primary Care Provider: Kit Vincent MD 78-year-old female with past med significant for type 2 diabetes, hyperlipidemia, chronic rhinitis, hypertension, SVT, history of uterine prolapse, chronic kidney stage II, osteoporosis, who lives at home with her son and his girlfriend and ambulates with a walker was brought in because of fall. Patient states she slid from the chair and fell and could not get up. She was on the floor for some time as no as was in the house at that time. In the ER imaging studies are okay. Denies any fevers. No cough. No headache. No loss of consciousness. No blurred visions. No earache runny nose or sore throat. No cough. No chest pain or shortness of breath. No nausea. No abdominal pain. She is constipated. Normal bladder movements. No burning micturition. Complains of pain in the hips. She was recently in the hospital because of fall and as her blood pressure was somewhat running low and amlodipine was stopped and lisinopril was stopped and the metoprolol dose was reduced to 12.5 mg daily. Past medical history as mentioned above Past surgical history colonoscopy, dilatation curettage, umbilical hernia repair Social history no smoking. No alcohol use. No drug use. Family history mother had colon cancer. Father had stroke. Brother had esophageal cancer. Brother had SD. Allergies Allergy/AdvReac Type Severity Reaction Status Date / Time No Known Allergies Allergy Verified 11/19/22 10:58 Home Medications Medication Instructions Recorded Confirmed Type alendronate 70 mg tablet 70 mg PO WK 08/06/23 08/06/23 History atorvastatin 40 mg tablet 40 mg PO DAILY 08/06/23 08/06/23 History cholecalciferol (vitamin D3) 25 25 mcg PO DAILY 08/06/23 08/06/23 History mcg (1,000 unit) tablet (Vitamin D3) cyanocobalamin (vitamin B-12) 1,000 mcg PO DAILY 08/06/23 08/06/23 History 1,000 mcg tablet gabapentin 100 mg tablet 100 mg PO DAILY 08/06/23 08/06/23 History magnesium oxide 400 mg PO BID 08/06/23 08/06/23 History metoprolol succinate 25 mg 12.5 mg PO DAILY 08/06/23 08/06/23 History tablet,extended release 24 hr multivitamin 1 tab PO DAILY 08/06/23 08/06/23 History Past Med/Surg History Medical History Anemia Blindness of right eye CKD (chronic kidney disease), stage III COVID-19 DM type 2 (diabetes mellitus, type 2) Dyslipidemia Hypertension Osteoporosis Paroxysmal ventricular tachycardia Syncope Surgical History H/O colonoscopy "2012- diverticulosis" H/O dilation and curettage H/O umbilical hernia repair History of cataract surgery Social History Smoking Status: Never smoker Hx Alcohol Use: No Hx Substance Use: No Preferred Language: Maori Communication Ability: Effective Box Tender Required: No Beliefs That Will Affect Care: None marital status: / Current Living Situation: Family Current Living Situation Comment: lives with ranjeet Cordova How many Children do You have: 1 Feels Safe at Home: Yes Assistive Devices: Walker and Wheelchair Review of Systems Review of Systems: All systems reviewed & are unremarkable except as noted in HPI & below Physical Exam Physical Exam: General- adult Head- atraumatic Eyes- PERRL, EOMI. ENT- oropharynx clear Neck- supple, no JVD. Lungs- clear to auscultation no wheezing or crackles Heart- regular rhythm; no murmur, no gallop. Abdomen- normal bowel sounds, soft, nontender, no distension. Extremities- no pretibial edema, no erythema. Neuro- alert, oriented x 3; PERRL, no facial palsy; no dysarthria; non focal. Skin- warm & dry Results & Data Results & Data Vital Signs (Past 12 Hours) Vital Signs Temp Pulse Pulse Resp BP BP Pulse Ox 08/06/23 09:33 94 H 08/06/23 09:24 95 H 18 99/57 L 97 08/06/23 07:38 101 H 18 102/60 97 08/06/23 05:29 112 H 08/06/23 05:00 112 H 20 08/06/23 05:00 107/62 08/06/23 04:50 110 H 23 08/06/23 04:40 111 H 20 08/06/23 04:30 112 H 21 08/06/23 04:30 101/54 L 08/06/23 04:20 111 H 20 08/06/23 04:10 114 H 22 08/06/23 04:00 110 H 22 08/06/23 04:00 107/61 08/06/23 03:59 109 H 22 08/06/23 03:50 111 H 21 08/06/23 03:40 113 H 24 08/06/23 03:30 117 H 22 08/06/23 03:20 118 H 23 08/06/23 03:11 111 H 21 96 08/06/23 03:11 112/58 L 08/06/23 03:10 110 H 22 94 08/06/23 03:00 108 H 19 95 08/06/23 03:00 86/66 L 08/06/23 02:50 111 H 23 94 08/06/23 02:40 114 H 17 95 08/06/23 02:30 114 H 20 96 08/06/23 02:30 106/54 L 08/06/23 02:20 113 H 23 97 08/06/23 02:10 114 H 21 97 08/06/23 02:00 109 H 22 97 08/06/23 02:00 90/61 L 08/06/23 01:50 108 H 18 97 08/06/23 01:40 109 H 22 98 08/06/23 01:36 99/64 L 08/06/23 01:36 136 H 18 08/06/23 01:30 114 H 23 08/06/23 01:28 130/97 08/06/23 01:28 112 H 26 H 08/06/23 01:10 108 H 21 95 08/06/23 01:00 107 H 22 94 08/06/23 00:50 107 H 21 95 08/06/23 00:40 111 H 19 96 08/06/23 00:30 108 H 21 97 08/06/23 00:20 113 H 24 97 08/06/23 00:10 106 H 23 96 08/06/23 00:07 103 H 23 96 08/06/23 01:08 108 H 08/05/23 22:51 37.1 C 109 H 20 123/104 H 98 O2 Del Method 08/06/23 09:33 08/06/23 09:24 Room Air 08/06/23 07:38 Room Air 08/06/23 05:29 08/06/23 05:00 08/06/23 05:00 08/06/23 04:50 08/06/23 04:40 08/06/23 04:30 08/06/23 04:30 08/06/23 04:20 08/06/23 04:10 08/06/23 04:00 08/06/23 04:00 08/06/23 03:59 08/06/23 03:50 08/06/23 03:40 08/06/23 03:30 08/06/23 03:20 08/06/23 03:11 08/06/23 03:11 08/06/23 03:10 08/06/23 03:00 08/06/23 03:00 08/06/23 02:50 08/06/23 02:40 08/06/23 02:30 08/06/23 02:30 08/06/23 02:20 08/06/23 02:10 08/06/23 02:00 08/06/23 02:00 08/06/23 01:50 08/06/23 01:40 08/06/23 01:36 08/06/23 01:36 08/06/23 01:30 08/06/23 01:28 08/06/23 01:28 08/06/23 01:10 08/06/23 01:00 08/06/23 00:50 08/06/23 00:40 08/06/23 00:30 08/06/23 00:20 08/06/23 00:10 08/06/23 00:07 08/06/23 01:08 08/05/23 22:51 Code Status & VTE Plan VTE Prophylaxis Plan VTE Prophylaxis will be ordered: Yes (1) Fall Encounter type: initial encounter Qualified Code(s): W19.XXXA - Unspecified fall, initial encounter
--- NOTE | 2023-08-06 10:23 | XRay Report ---
XR chest 1V portable CLINICAL HISTORY: pre op TECHNIQUE: Single frontal radiograph of the chest was obtained. Comparison: Comparison is made to chest radiograph 08/29/2021 FINDINGS: No lines and tubes are seen. Calcified aortic knob is seen. Degenerative changes are seen in the bila teral shoulder joints. Old healed right rib fractures noted. The lungs are clear. No evidence of pleu ral effusion or pneumothorax. IMPRESSION: No acute chest disease. ACT 112: Negative or not required by law. Electronically signed by: Avery Jefferson M.D. 08/06/2023 10:21 AM
[2023-08-06] MEDS ORDERED: DEXTROSE 50% 50 ML SYRINGE IV PRN (11:02)
[2023-08-06] MEDS ORDERED: POLYETHYLENE (MIRALAX) 17 GM PACK PO PRN (11:02)
[2023-08-06] MEDS ORDERED: GLUCOSE 40% GEL 15 GM TUBE PO PRN (11:02)
[2023-08-06] MEDS ORDERED: oxyCODONE HCL IR 5 MG TAB (IMMEDIATE RELEASE) PO PRN (11:02)
[2023-08-06] MEDS ORDERED: CARBOHYDRATES FOR HYPOGLYCEMIA PO PRN (11:02)
[2023-08-06] MEDS ORDERED: ONDANSETRON INJ 2 MG/ML 2 ML VIAL IV PRN (11:02)
[2023-08-06] MEDS ORDERED: GLUCOSE 10 TAB/TUBE PO PRN (11:02)
[2023-08-06] MEDS ORDERED: GLUCAGON FOR INJ 1 MG VIAL SQ PRN (11:02)
[2023-08-06] MEDS: SODIUM CHLORIDE 0.9% 1,000 ML IV SCH ×2 (11:36→23:50)
[2023-08-06] MEDS: cefTRIAXone SODIUM 2,000 MG in DEXTROSE 5 % MINI-B 50 ML IV SCH (11:36)
--- NOTE | 2023-08-06 11:52 | XRay Report ---
XR hip RT min 2V CLINICAL HISTORY: fall TECHNIQUE: 2 views of the right hip and single frontal view of the pelvis were obtained. Comparison: Comparison is made to CT abdomen pelvis 07/11/2023 FINDINGS: There is no evidence of an acute fracture. Degenerative changes are seen in the hip joint. No soft ti ssue abnormality is seen. IMPRESSION: Degenerative changes without evidence of acute abnormality. ACT 112: Negative or not required by law. Electronically signed by: Avery Jefferson M.D. 08/06/2023 11:50 AM
[2023-08-06] MEDS: INSULIN ASPART PER UNIT CHARGE SC SCH ×3 (13:01→20:46)
[2023-08-06] MEDS: HEPARIN SOD 5,000 UNIT/0.5 ML VIAL SQ SCH ×2 (13:06→22:33)
[2023-08-06] MEDS: MULTIVITAMIN TAB PO SCH (13:07)
[2023-08-06] MEDS: CHOLECALCIFEROL 1,000 UNITS 25 MCG TAB PO SCH (13:07)
[2023-08-06] MEDS: GABAPENTIN 100 MG CAP PO SCH (13:07)
[2023-08-06] MEDS: CYANOCOBALAMIN (B-12) 500 MCG TABLET PO SCH (13:07)
[2023-08-06] MEDS: MAGNESIUM OXIDE 400 MG TAB PO SCH ×2 (13:08→20:46)
[2023-08-06] MEDS: METOPROLOL SUCC 25MG EXT REL TAB PO SCH (13:09)
--- NOTE | 2023-08-06 14:04 | Communication Note ---
Date of Service: August 06, 2023 Patient seen and examined at bedside. She is sitting up on the bed eating lunch; not in distress. She is admitted after she slipped down the chair onto the floor; with right hip pain. CT of the hip does not show any fracture Labs reviewed; consistent with IDALIA and transaminitis patient recently completed course of Bactrim. Continue IV hydration, IV antibiotics. Follow-up on urine and blood culture. Bladder scan to rule out postrenal IDALIA Hepatitis panel and right upper quadrant ultrasound ordered for transaminitis
[2023-08-06 15:02] LABS: Bilirubin Direct 0.1 mg/dl (0-0.2); Bilirubin,Total 0.5 mg/dl (0.2-1.0); Calcium 7.6 mg/dl (8.6-10.3); Potassium 4.6 mmol/L (3.5-5.1)
[2023-08-06 15:08] LABS: BUN Creatinine Ratio 29.9 (10-20); Creatinine Clr Calc Pharmacy 19.5 ml/min; Est GFR (African American) 35.7 ml/min; Est GFR (Non-African American) 30.8 ml/min; Total Protein 6.1 gm/dl (6.0-8.3)
--- NOTE | 2023-08-06 18:58 | Ultrasound Report ---
US liver CLINICAL HISTORY: Tranasminitis TECHNIQUE: Multiple real-time sonographic images of the right upper quadrant were obtained. Comparison: Comparison is made to CT abdomen pelvis 07/11/2023 FINDINGS: Highly limited exam due to bowel gas. Liver is poorly visualized though visualized portions are withi n normal limits. Visualized portions of the gallbladder are normal, wall thickness is difficult to me asure. No stones are seen. The common bile duct is not seen. The pancreas is not seen. Right kidney measures approximately 7.5 cm. No ascites or free fluid is seen in Grant's pouch. IMPRESSION: Highly limited exam without evidence of acute abnormality. ACT 112: Negative or not required by law. Electronically signed by: Avery Jefferson M.D. 08/06/2023 6:57 PM
[2023-08-07 06:54] LABS: Basophils # (auto) 0.03 K/uL (0.00-0.20); Basophils % (auto) 0.4 %; Eosinophils # (auto) 0.25 K/uL (0.00-0.50); Hematocrit (blood only) 27.8 % (37.0-47.0); Hemoglobin 9.3 g/dl (12.0-16.0); Immature Granulocytes # (auto) 0.05 K/uL (0.01-0.20); Immature Granulocytes % (auto) 0.6 %; Lymphocytes # (auto) 0.71 K/uL (1.20-3.40); Lymphocytes % (auto) 8.4 %; Mean Corpuscular Hemoglobin 32.6 pg (25.0-34.0); Mean Corpuscular Hgb Conc 33.5 g/dL (32.0-36.0); Mean Corpuscular Volume 97.5 fL (80.0-100.0); Mean Platelet Volume 10.5 fL (9.4-12.4); Monocytes # (auto) 0.46 K/uL (0.11-0.59); Monocytes % (auto) 5.5 %; Neutrophils # (auto) 6.93 K/uL (1.40-6.50); Neutrophils % (auto) 82.1 %; Platelet Count 157 K/uL (130-400); RDW Coefficient of Variation 13.3 % (11.5-14.5); RDW Standard Deviation 47.8 fL (36.4-46.3); Red Blood Count 2.85 M/uL (4.20-5.40); White Blood Count 8.43 K/ul (4.8-10.8)
[2023-08-07 07:24] LABS: Albumin Level 2.6 gm/dl (3.4-5.0); BUN Creatinine Ratio 33.3 (10-20); Bilirubin Direct 0.1 mg/dl (0-0.2); Bilirubin,Total 0.3 mg/dl (0.2-1.0); Calcium 7.3 mg/dl (8.6-10.3); Creatinine Clr Calc Pharmacy 28.3 ml/min; Est GFR (African American) 56.1 ml/min; Est GFR (Non-African American) 48.4 ml/min; Magnesium 2.1 mg/dl (1.7-2.4); Total Protein 5.1 gm/dl (6.0-8.3)
[2023-08-07] MEDS: INSULIN ASPART PER UNIT CHARGE SC SCH ×4 (09:28→22:20)
[2023-08-07] MEDS: MAGNESIUM OXIDE 400 MG TAB PO SCH ×2 (09:28→20:07)
[2023-08-07] MEDS: CYANOCOBALAMIN (B-12) 500 MCG TABLET PO SCH (09:28)
[2023-08-07] MEDS: CHOLECALCIFEROL 1,000 UNITS 25 MCG TAB PO SCH (09:29)
[2023-08-07] MEDS: GABAPENTIN 100 MG CAP PO SCH (09:29)
[2023-08-07] MEDS: METOPROLOL SUCC 25MG EXT REL TAB PO SCH (09:29)
[2023-08-07] MEDS: MULTIVITAMIN TAB PO SCH (09:29)
[2023-08-07] MEDS: cefTRIAXone SODIUM 2,000 MG in DEXTROSE 5 % MINI-B 50 ML IV SCH (09:30)
[2023-08-07] MEDS: HEPARIN SOD 5,000 UNIT/0.5 ML VIAL SQ SCH ×2 (11:21→23:09)
--- NOTE | 2023-08-07 13:12 | Hospitalist Progress Note ---
Date of Service August 07, 2023 Assessment & Plan (1) Fall: Plan: 78-year-old female with past med significant for type 2 diabetes, hyperlipidemia, chronic rhinitis, hypertension, SVT, history of uterine prolapse, chronic kidney stage II, osteoporosis, who lives at home with her son and his girlfriend and ambulates with a walker was brought in because of fall. Mechanical fall History of multiple recent fall; was hospitalized from 07/10 to 07/12 with falls Hip x-ray and pelvic CT are negative for any acute findings Fall likely secondary to dehydration, UTI and IDALIA PT OT IV fluids Possible urinary tract infection Urinalysis positive for infection Urine culture pending Continue on Rocephin Acute kidney injury, likely prerenal Creatinine of 1.97 on admission; baseline around 1. Downtrended with IV hydration Remove Moreno, trial of void. Transaminitis On admission, liver enzymes elevated to 400s Continued to improve. Likely related with hypotension, IDALIA Type II diabetes Continue sliding scale insulin Follow HbA1c levels Hypertension Metoprolol Last admission amlodipine, lisinopril and metoprolol dose decreased because of hypotension We will monitor History of SVT On metoprolol Hyperlipidemia Statin DVT prophylaxis Heparin subcu Disposition Medical floor Full code Time spent evaluating patient, direct bedside care, chart review, placing orders, interpretation of diagnostic studies, discussion with consultants, patient, and family members, as well as other required patient management activities is 60 minutes Please note the above document was generated using voice recognition software. It may contain grammatical, syntax or spelling errors. Any formal questions or concerns about the content, text or information contained within the body of this dictation should be directly addressed to the provider for clarification Admission and Anticipated Discharge Date Admission Date: August 06, 2023 Subjective Patient seen and examined at bedside. She is lying on the bed comfortably; not in distress. Urine output overnight assuring Review of Systems Review of Systems: All systems reviewed & are unremarkable except as noted in Subjective Physical Exam Physical Exam: General-alert oriented x3; not in distress. Head- atraumatic Eyes- PERRL, EOMI. ENT- oropharynx clear Neck- supple, no JVD. Lungs- clear to auscultation no wheezing or crackles Heart- regular rhythm; no murmur, no gallop. Abdomen- normal bowel sounds, soft, nontender, no distension. Extremities- no pretibial edema, no erythema. Neuro- alert, oriented x 3; PERRL, no facial palsy; no dysarthria; non focal. Skin- warm & dry Results & Data Results & Data Vital Signs (Past 12 Hours) Vital Signs Temp Pulse Resp BP Pulse Ox O2 Del Method 08/07/23 08:00 36.9 C 105 H 18 109/69 94 Room Air Laboratory Results Laboratory Results WBC 8.43 K/ul (4.8-10.8) 08/07/23 06:31 RBC 2.85 M/uL (4.20-5.40) L 08/07/23 06:31 Hgb 9.3 g/dl (12.0-16.0) L 08/07/23 06:31 Hct 27.8 % (37.0-47.0) L 08/07/23 06:31 MCV 97.5 fL (80.0-100.0) 08/07/23 06:31 MCH 32.6 pg (25.0-34.0) 08/07/23 06:31 MCHC 33.5 g/dL (32.0-36.0) 08/07/23 06:31 RDW Std Deviation 47.8 fL (36.4-46.3) H 08/07/23 06:31 RDW Coeff of Julio 13.3 % (11.5-14.5) 08/07/23 06:31 Plt Count 157 K/uL (130-400) 08/07/23 06:31 MPV 10.5 fL (9.4-12.4) 08/07/23 06:31 Immature Gran % (Auto) 0.6 % 08/07/23 06:31 Neut % (Auto) 82.1 % 08/07/23 06:31 Lymph % (Auto) 8.4 % 08/07/23 06:31 [place] % (Auto) 5.5 % 08/07/23 06:31 Eos % (Auto) 3.0 % 08/07/23 06:31 Baso % (Auto) 0.4 % 08/07/23 06:31 Neut # (Auto) 6.93 K/uL (1.40-6.50) H 08/07/23 06:31 Lymph # (Auto) 0.71 K/uL (1.20-3.40) L 10/15/23 06:31 [place] # (Auto) 0.46 K/uL (0.11-0.59) 08/07/23 06:31 Eos # (Auto) 0.25 K/uL (0.00-0.50) 08/07/23 06:31 Baso # (Auto) 0.03 K/uL (0.00-0.20) 08/07/23 06:31 Immature Gran # (Auto) 0.05 K/uL (0.01-0.20) 08/07/23 06:31 Dohle Bodies 1+ 08/06/23 00:46 PT 11.4 Seconds (9.0-12.0) 08/06/23 02:36 INR 1.0 (0.9-1.1) 08/06/23 02:36 APTT < 20.0 Seconds (21.0-31.0) L 08/06/23 02:36 PTT Ratio 0.7 08/06/23 02:36 Sodium 135 mmol/L (136-145) L 08/07/23 06:31 Potassium 4.0 mmol/L (3.5-5.1) 08/07/23 06:31 Chloride 108 mmol/L (98-107) H 08/07/23 06:31 Carbon Dioxide 20 mmol/L (21-32) L 08/07/23 06:31 Anion Gap 7 (3-11) 08/07/23 06:31 BUN 36 mg/dl (6-23) H 08/07/23 06:31 Creatinine 1.08 mg/dl (0.6-1.2) D 08/07/23 06:31 Est Cr Clr Drug Dosing 28.3 ml/min 08/07/23 06:31 Est GFR ( Amer) 56.1 ml/min 08/07/23 06:31 Est GFR (Non-Af Amer) 48.4 ml/min 08/07/23 06:31 BUN/Creatinine Ratio 33.3 (10-20) H 08/07/23 06:31 Glucose 68 mg/dl (70-99(Fasting)) L 08/07/23 06:31 POC Glucose 176 mg/dl (70-99) H 08/07/23 12:14 Calcium 7.3 mg/dl (8.6-10.3) L 08/07/23 06:31 Magnesium 2.1 mg/dl (1.7-2.4) 08/07/23 06:31 Total Bilirubin 0.3 mg/dl (0.2-1.0) 08/07/23 06:31 Direct Bilirubin 0.1 mg/dl (0-0.2) 08/07/23 06:31 AST 126 U/L (13-39) H 08/07/23 06:31 ALT 189 U/L (7-52) H 08/07/23 06:31 Alkaline Phosphatase 82 U/L (34-104) 08/07/23 06:31 Total Protein 5.1 gm/dl (6.0-8.3) L 08/07/23 06:31 Albumin 2.6 gm/dl (3.4-5.0) L 08/07/23 06:31 Globulin 3.4 gm/dl (2.5-4.0) 08/06/23 00:46 Albumin/Globulin Ratio 1.1 (0.9-2) 08/06/23 00:46 Urine Color Dark Yellow 08/06/23 02:28 Urine Appearance Cloudy (Clear) A 08/06/23 02:28 Urine pH 6.0 (4.5-7.5) 08/06/23 02:28 Ur Specific [place] 1.018 (1.000-1.030) 08/06/23 02:28 Urine Protein 2+ (Negative) H 08/06/23 02:28 Urine Glucose (UA) Negative (Negative) 08/06/23 02:28 Urine Ketones Trace (Negative) H 08/06/23 02:28 Urine Blood 2+ (Negative) H 08/06/23 02:28 Urine Nitrite Negative (Negative) 08/06/23 02:28 Urine Bilirubin Negative (Negative) 08/06/23 02:28 Urine Urobilinogen Negative (Negative) 08/06/23 02:28 Ur Leukocyte Esterase 3+ (Negative) H 08/06/23 02:28 Urine WBC (Auto) >30 /hpf (0-5) H 08/06/23 02:28 Urine RBC (Auto) 0-4 /hpf (0-4) 08/06/23 02:28 U Hyaline Cast (Auto) 1-5 /lpf (0-5) 08/06/23 02:28 U Epithel Cells (Auto) 10-20 /lpf (0-5) H 08/06/23 02:28 Urine Bacteria (Auto) Negative (Negative) 08/06/23 02:28 Urine Yeast Not Reportable 08/06/23 02:28 Impressions Hip X-Ray 08/05/23 23:28 XR hip RT min 2V CLINICAL HISTORY: fall TECHNIQUE: 2 views of the right hip and single frontal view of the pelvis were obtained. Comparison: Comparison is made to CT abdomen pelvis 07/11/2023 FINDINGS: There is no evidence of an acute fracture. Degenerative changes are seen in the hip joint. No soft tissue abnormality is seen. IMPRESSION: Degenerative changes without evidence of acute abnormality. ACT 112: Negative or not required by law. Electronically signed by: Avery Jefferson M.D. 08/06/2023 11:50 AM Chest X-Ray 08/05/23 23:29 XR chest 1V portable CLINICAL HISTORY: pre op TECHNIQUE: Single frontal radiograph of the chest was obtained. Comparison: Comparison is made to chest radiograph 08/29/2021 FINDINGS: No lines and tubes are seen. Calcified aortic knob is seen. Degenerative changes are seen in the bilateral shoulder joints. Old healed right rib fractures noted. The lungs are clear. No evidence of pleural effusion or pneumothorax. IMPRESSION: No acute chest disease. ACT 112: Negative or not required by law. Electronically signed by: Avery Jefferson M.D. 08/06/2023 10:[address] 08/06/23 00:56 Exam(s): CT PELVIS Without Contrast EXAM: CT Pelvis Without Intravenous Contrast CLINICAL HISTORY: eval right elizabeth pelvis and hip for fracture. TECHNIQUE: Axial computed tomography images of the pelvis without intravenous contrast. CTDI is 11.68 mGy and DLP is 348.25 mGy-cm. Automated exposure control was utilized for the study. A dose lowering technique was utilized adhering to the principles of ALARA. 3D reconstructed images were created and reviewed. COMPARISON: CT abdomen and pelvis dated 07/11/2023. The pelvic bones are stable without acute traumatic injury or alteration from the previous examination. Asymmetric joint space narrowing involving the right hip is identified. FINDINGS: Bones/joints: Prior ORIF of the proximal left femur is noted. Stable loss of height involving the L5 vertebral body with grade 1 anterolisthesis of L5 on S1. No acute fracture. No dislocation. Soft tissues: Unremarkable. Bladder: Unremarkable. No stones. IMPRESSION: No acute osseous traumatic injury involving the pelvis. No alteration from the previous examination. Electronically signed by: Marco Antonio Puga MD 08/06/23 02:58 AM Liver Ultrasound 08/06/23 11:05 US liver CLINICAL HISTORY: Tranasminitis TECHNIQUE: Multiple real-time sonographic images of the right upper quadrant were obtained. Comparison: Comparison is made to CT abdomen pelvis 07/11/2023 FINDINGS: Highly limited exam due to bowel gas. Liver is poorly visualized though visualized portions are within normal limits. Visualized portions of the gallbladder are normal, wall thickness is difficult to measure. No stones are seen. The common bile duct is not seen. The pancreas is not seen. Right kidney measures approximately 7.5 cm. No ascites or free fluid is seen in Grant's pouch. IMPRESSION: Highly limited exam without evidence of acute abnormality. ACT 112: Negative or not required by law. Electronically signed by: Avery Jefferson M.D. 08/06/2023 6:57 PM (1) Fall Encounter type: initial encounter Qualified Code(s): W19.XXXA - Unspecified fall, initial encounter
[2023-08-08] MEDS ORDERED: ALENDRONATE SODIUM 70 MG TAB PO SCH (06:30)
[2023-08-08 07:24] LABS: Estimated Average Glucose 105 mg/dl; Hemoglobin A1C 5.3 % (4.5-5.6)
[2023-08-08 07:27] LABS: Calcium 8.5 mg/dl (8.6-10.3); Creatinine Clr Calc Pharmacy 35.1 ml/min; Est GFR (African American) 72.9 ml/min; Est GFR (Non-African American) 62.9 ml/min; Potassium 4.2 mmol/L (3.5-5.1)
[2023-08-08 07:30] LABS: Basophils # (auto) 0.04 K/uL (0.00-0.20); Basophils % (auto) 0.7 %; Eosinophils % (auto) 7.1 %; Hematocrit (blood only) 33.4 % (37.0-47.0); Immature Granulocytes # (auto) 0.05 K/uL (0.01-0.20); Immature Granulocytes % (auto) 0.9 %; Lymphocytes # (auto) 1.35 K/uL (1.20-3.40); Lymphocytes % (auto) 23.8 %; Mean Corpuscular Hemoglobin 31.9 pg (25.0-34.0); Mean Corpuscular Hgb Conc 32.9 g/dL (32.0-36.0); Mean Corpuscular Volume 96.8 fL (80.0-100.0); Mean Platelet Volume 10.9 fL (9.4-12.4); Monocytes # (auto) 0.48 K/uL (0.11-0.59); Monocytes % (auto) 8.5 %; Neutrophils # (auto) 3.35 K/uL (1.40-6.50); Platelet Count 174 K/uL (130-400); RDW Coefficient of Variation 13.1 % (11.5-14.5); RDW Standard Deviation 46.5 fL (36.4-46.3); Red Blood Count 3.45 M/uL (4.20-5.40); White Blood Count 5.67 K/ul (4.8-10.8)
[2023-08-08] MEDS: INSULIN ASPART PER UNIT CHARGE SC SCH ×2 (08:05→13:00)
[2023-08-08] MEDS: MULTIVITAMIN TAB PO SCH (08:10)
[2023-08-08] MEDS: GABAPENTIN 100 MG CAP PO SCH (08:11)
[2023-08-08] MEDS: MAGNESIUM OXIDE 400 MG TAB PO SCH (08:11)
[2023-08-08] MEDS: METOPROLOL SUCC 25MG EXT REL TAB PO SCH (08:11)
[2023-08-08] MEDS: CHOLECALCIFEROL 1,000 UNITS 25 MCG TAB PO SCH (08:11)
[2023-08-08] MEDS: CYANOCOBALAMIN (B-12) 500 MCG TABLET PO SCH (08:11)
[2023-08-08] MEDS: cefTRIAXone SODIUM 2,000 MG in DEXTROSE 5 % MINI-B 50 ML IV SCH (10:34)
[2023-08-08] MEDS: HEPARIN SOD 5,000 UNIT/0.5 ML VIAL SQ SCH (11:34)
[2023-08-08 11:46] LABS: Albumin Level 2.9 gm/dl (3.4-5.0); Bilirubin,Total 0.3 mg/dl (0.2-1.0)
[2023-08-08 11:52] LABS: Total Protein 5.8 gm/dl (6.0-8.3)
--- NOTE | 2023-08-08 14:15 | Discharge Summary ---
Date of Service August 08, 2023 Admission HPI Per Admitting Provider 78-year-old female with past med significant for type 2 diabetes, hyperlipidemia, chronic rhinitis, hypertension, SVT, history of uterine prolapse, chronic kidney stage II, osteoporosis, who lives at home with her son and his girlfriend and ambulates with a walker was brought in because of fall. Patient states she slid from the chair and fell and could not get up. She was on the floor for some time as no as was in the house at that time. In the ER imaging studies are okay. Denies any fevers. No cough. No headache. No loss of consciousness. No blurred visions. No earache runny nose or sore throat. No cough. No chest pain or shortness of breath. No nausea. No abdominal pain. She is constipated. Normal bladder movements. No burning micturition. Complains of pain in the hips. She was recently in the hospital because of fall and as her blood pressure was somewhat running low and amlodipine was stopped and lisinopril was stopped and the metoprolol dose was reduced to 12.5 mg daily. Past medical history as mentioned above Past surgical history colonoscopy, dilatation curettage, umbilical hernia repair Social history no smoking. No alcohol use. No drug use. Family history mother had colon cancer. Father had stroke. Brother had esophageal cancer. Brother had [place]. Admission Exam Per Admitting Provider General- adult Head- atraumatic Eyes- PERRL, EOMI. ENT- oropharynx clear Neck- supple, no JVD. Lungs- clear to auscultation no wheezing or crackles Heart- regular rhythm; no murmur, no gallop. Abdomen- normal bowel sounds, soft, nontender, no distension. Extremities- no pretibial edema, no erythema. Neuro- alert, oriented x 3; PERRL, no facial palsy; no dysarthria; non focal. Skin- warm & dry Principal Diagnosis Mechanical fall Acute kidney injury Discharge Exam General-alert oriented x3; not in distress. Lungs- clear to auscultation no wheezing or crackles Heart- regular rhythm; no murmur, no gallop. Abdomen- normal bowel sounds, soft, nontender, no distension. Extremities- no pretibial edema, no erythema. Neuro- alert, oriented x 3; PERRL, no facial palsy; no dysarthria; non focal. Skin- warm & dry Discharge Data Allergies Allergy/AdvReac Type Severity Reaction Status Date / Time No Known Allergies Allergy Verified 11/19/22 10:58 Consultations 08/06/23 04:51 ED Decision to Admit Stat Ordered Studies 08/06/23 00:56 CT pelvis wo con Stat 08/06/23 11:05 US liver Routine Hospital Course (1) Fall: 78-year-old female with past med significant for type 2 diabetes, hyperlipidemia, chronic rhinitis, hypertension, SVT, history of uterine prolapse, chronic kidney stage II, osteoporosis, who lives at home with her son and his girlfriend and ambulates with a walker was brought in because of fall. Mechanical fall Acute kidney injury Transaminitis History of multiple recent fall; was hospitalized from 07/10 to 07/12 with falls Hip x-ray and pelvic CT are negative for any acute findings Fall likely secondary to dehydration, UTI and IDALIA During the hospitalization, patient was treated with IV hydration. Urinary tract infection was ruled out with no growth in urine culture. Patient's creatinine down trended back to baseline. Liver enzymes down trended as well with IV hydration. Patient's hepatitis panel is still pending; patient to follow-up with PCP and repeat LFT to be done. PT OT evaluation was done; recommended home with home PT OT. Please note the above document was generated using voice recognition software. It may contain grammatical, syntax or spelling errors. Any formal questions or concerns about the content, text or information contained within the body of this dictation should be directly addressed to the provider for clarification Total Time Total Time Spent Total Time Spent (In Minutes): 35 Total Time Includes: Examination of the Patient, Discharge Planning, Medication Reconciliation, Communication With Other Providers and Other Discharge Plan Discharge Items Patient Disposition: Home - Home Health Services Reason For Visit: FALL, UTI Discharge Diagnosis: Mechanical fall Acute kidney injury Activity: Resume your previous activity Non-emergency contact: Primary Care Provider Call non-emergency contact if: you have any medication questions and your symptoms worsen Follow-up/Referrals: Kit Vincent MD [Primary Care Provider] - (Date & Time 08/11/2023 11:00 AM Provider Ana Garcia [facility] ) Diet: Regular Addtl Attending Provider Instructions: You were admitted to the hospital due to fall. You are evaluated by physical therapy who recommend home PT OT. Continue on all the medication you are on previously. An appointment will be set up with your primary care doctor. You will need to have LFTs checked with your primary care doctor. You will need hepatology referral if liver enzymes continues to be elevated Pending Studies at Discharge: Yes (Hepatitis panel) Stand-Alone Forms: My [facility], Smoking Cessation Medications and DC Order Prescriptions: Continued multivitamin Tablet 1 tab PO DAILY atorvastatin 40 mg Tablet 40 mg PO DAILY alendronate 70 mg tablet 70 mg PO WK cyanocobalamin (vitamin B-12) 1,000 mcg Tablet 1,000 mcg PO DAILY metoprolol succinate 25 mg tablet extended release 24 hr 12.5 mg PO DAILY gabapentin 100 mg Tablet 100 mg PO DAILY cholecalciferol (vitamin D3) [Vitamin D3] 25 mcg (1,000 unit) Tablet 25 mcg PO DAILY magnesium oxide 400 mg magnesium Capsule 400 mg PO BID Discharge Orders: Discharge Order (Routine); Ordered 08/08/23 Ordered By: Ludwig Cardenas/Other Patient Handouts: Managing Type 2 Diabetes Admission Data Admit Date/Time: 08/06/23 08:02 Attending Provider: Ludwig Guaman Admit Provider: Denis Regan Primary Care Provider: Kit Vincent Other Providers: Denis Regan ; [facility],Home Healthcare
--- NOTE | 2023-08-09 06:02 | Electrocardiogram Report ---
Test Reason : Blood Pressure : / mmHG Vent. Rate : 108 BPM Atrial Rate : 108 BPM P-R Int : 130 ms QRS Dur : 064 ms QT Int : 328 ms P-R-T Axes : 055 038 002 degrees QTc Int : 439 ms Poor data quality, interpretation may be adversely affected Sinus tachycardia Low voltage QRS Nonspecific ST and T wave abnormality Abnormal ECG When compared with ECG of 09-JUL-2023 20:39, Nonspecific T wave abnormality now evident in Anterior leads Confirmed by Amadeo Stark ([id number]) on 08/09/2023 6:01:49 AM Referred By: Kit Vincent Confirmed By:Amadeo Stark
--- NOTE | 2023-08-09 06:22 | Electrocardiogram Report ---
Test Reason : Blood Pressure : / mmHG Vent. Rate : 097 BPM Atrial Rate : 097 BPM P-R Int : 126 ms QRS Dur : 112 ms QT Int : 366 ms P-R-T Axes : 047 -07 001 degrees QTc Int : 464 ms Poor data quality, interpretation may be adversely affected Normal sinus rhythm Possible Left atrial enlargement Incomplete right bundle branch block Cannot rule out Anterior infarct , age undetermined Abnormal ECG When compared with ECG of 09-JUL-2023 20:39, Incomplete right bundle branch block is now Present Minimal criteria for Anterior infarct are now Present Confirmed by Amadeo Stark ([id number]) on 08/09/2023 6:22:13 AM Referred By: Kit Vincent Confirmed By:Amadeo Stark
[2023-08-09 12:47] LABS: HBSAG NON-REACTIVE (NON-REACTIVE); Hepatitis A Antibody IgM NON-REACTIVE (NON-REACTIVE); Hepatitis B Core Antibody IgM NON-REACTIVE (NON-REACTIVE)
== END 2023-08-08 17:10 | disposition home health service (06) | DRG 92 ==
LOC: ED 22:39 → EDINP 08-06 08:02 → 3N 08-06 10:49